=== PATIENT | male | born 1930 | race Caucasian/White ===

== ENCOUNTER 2016-05-01 14:56 | Inpatient (IN) | payer OTHER ==
[~2016-05-01] VITALS: Ht 160 cm; Wt 82.9 kg
[2016-05-01] MEDS ORDERED: OMEG10007 PO (16:06)
[2016-05-01] MEDS ORDERED: CRAN1CAP15 PO (16:07)
[2016-05-01] MEDS ORDERED: FLM4 PO (16:09)
[2016-05-01] MEDS ORDERED: ASPCH81X PO (16:09)
[2016-05-01] MEDS ORDERED: MONT1TAB5 PO (16:09)
[2016-05-01] MEDS ORDERED: ATEN-173 PO (16:09)
[2016-05-01] MEDS ORDERED: MELO7.5T5 PO (16:09)
[2016-05-01] MEDS ORDERED: ACETAMINOPHEN 325 MG TAB PO PRN (16:15)
[2016-05-01] MEDS ORDERED: POLYETHYLENE (MIRALAX) 17 GM PACK PO PRN (16:15)
[2016-05-01] MEDS ORDERED: MAGNESIUM HYDROXIDE SUSP 30 ML UDC PO PRN (16:15)
[2016-05-01] MEDS ORDERED: ALUMINUM/MAGNESIUM/SIMETH (MAALOX MAX) 30 ML UDC PO PRN (16:15)
[2016-05-01] MEDS ORDERED: ONDANSETRON INJ 2 MG/ML 2 ML VIAL IV PRN (16:15)
[2016-05-01] MEDS ORDERED: PIPERACILLIN/TAZOBACTAM 3.375 GM/100ML D5W IV STA (16:18)
[2016-05-01 16:25] VITALS: BP 95/65; PULSE 67; TEMP 36.9; O2SAT 93; Ht 160 cm; Wt 82.9 kg
[2016-05-01] MEDS ORDERED: PIPERACILL/TAZOBAC IV 3.375 GM in DEXTROSE 5% 100ML IV ONE (16:30)
[2016-05-01] MEDS ORDERED: PIPERACILL/TAZOBAC CONSULT ACTIVE PRN (16:30)
--- NOTE | 2016-05-01 16:55 | History and Physical ---
History & Physical Date of Service May 01, 2016. History & Physical leukocytosis, left lower abd pain, Ct showed cholecystitis/pancreatitis [id number]
[2016-05-01] MEDS ORDERED: PANTOprazole INJ 40 MG in SYRINGE 0 ML IV ONE (17:00)
[2016-05-01 17:05] LABS: HEMATOCRIT 34.7 % (42-52); MEAN CELL VOLUME 91.3 fL (80-100); MEAN CORPUSCULAR HEMOGLOBIN 31.8 pg (25-34); MEAN CORPUSCULAR HGB CONC 34.9 g/dl (32-36); MEAN PLATELET VOLUME 9.6 fL (7.4-10.4); PLATELET COUNT 200 K/uL (130-400); WHITE BLOOD COUNT 21.39 K/uL (4.8-10.8)
[2016-05-01 17:15] LABS: PROTHROMBIN TIME (PATIENT) 10.7 SECONDS (9.0-12.0)
[2016-05-01 17:25] LABS: BUN/CREATININE RATIO 19.6 (10-20); CALCIUM 8.6 mg/dl (8.5-10.1); CREATININE 1.4 mg/dl (0.60-1.40); MAGNESIUM 2.4 mg/dl (1.8-2.4); POTASSIUM 3.8 mmol/L (3.5-5.1)
--- NOTE | 2016-05-01 17:28 | Medical Consult ---
Consultation Date of Consultation: May 01, 2016. Attending Physician: Anthony Freeman MD, PhD Reason for Consultation: cholecystitis, pancreatitis History of Present Illness 86 yo male with abd pain- w/u , findings c/w acute cholecystitis and mild pancreatitis. likely gallstone pancreatitis transferred from [facility] wbc- 22,000 Social History Smoking Status: Never Smoker Allergies Coded Allergies: Allopurinol (Verified Allergy, Mild, PT DOESN'T KNOW, 05/01/16) unknown Fexofenadine (Verified Allergy, Mild, RASH, 05/01/16) unknown Sulfa Antibiotics (Verified Allergy, Unknown, RASH, 05/01/16) unknown Current Inpatient Medications Current Inpatient Medications Medications (Trade) Dose Ordered Sig/Adithya Route Start Time Stop Time Status Last Admin Dose Admin Acetaminophen (Tylenol Tab) 650 mg Q4H PRN PO 05/01/16 16:15 05/31/16 16:14 Al Hydrox/Mg Hydrox/Simethicone (Maalox Max Susp) 15 ml Q4H PRN PO 05/01/16 16:15 05/31/16 16:14 Magnesium Hydroxide (Milk Of Magnesia Susp) 30 ml Q6H PRN PO 05/01/16 16:15 05/31/16 16:14 Polyethylene (Miralax Powder Packet) 17 gm DAILY PRN PO 05/01/16 16:15 05/31/16 16:14 Ondansetron HCl 4 mg 4 mg Q6H PRN IV 05/01/16 16:15 05/31/16 16:14 Piperacillin Sod/ Tazobactam Sod/ Dextrose (Zosyn Iv/D5 100ml) 115 ml @ 200 mls/hr Q6 IV 05/01/16 18:00 05/11/16 17:59 UNV Piperacillin Sod/ Tazobactam Sod 1 ea 1 ea UD PRN N/A 05/01/16 16:30 05/31/16 16:29 Sodium Chloride (Nss 1000ml) 1,000 ml @ 150 mls/hr Q6H40M IV 05/01/16 16:45 05/31/16 16:44 Atenolol (Tenormin Tab) 25 mg DAILY PO 05/02/16 09:00 06/01/16 08:59 Montelukast Sodium (Singulair Tab) 10 mg DAILY PO 05/02/16 09:00 06/01/16 08:59 Tamsulosin HCl (Flomax Cap) 0.4 mg QPM PO 05/01/16 21:00 05/31/16 20:59 Heparin Sodium (Porcine) 5000 unit 5,000 unit Q12 SQ 05/01/16 21:00 05/31/16 20:59 UNV Pantoprazole Sodium/Syringe (Protonix Inj/ Syringe) 10 ml @ 5 mls/min DAILY@11 IV 05/02/16 11:00 06/01/16 10:59 Review of Systems Constitutional: No chills, No fever Respiratory: No cough, No sputum Cardiovascular: No chest pain Abdomen: + nausea, + pain, No vomiting Musculoskeletal: No muscle pain Genitourinary - Male: No dysuria Neurologic: + weakness Endocrine: + fatigue Integumentary: No rash Physical Exam Date Time Temp Pulse Resp B/P Pulse Ox O2 Delivery O2 Flow Rate FiO2 05/01/16 16:25 36.9 67 16 95/65 General Appearance: no apparent distress Eyes: sclerae normal Neck: supple Respiratory/Chest: no respiratory distress Cardiovascular: regular rate, rhythm Abdomen/GI: normal bowel sounds (RUQ tenderness), + tenderness, + distended Extremities/Musculoskelatal: no pedal edema Neurologic/Psych: alert Skin: no rash Laboratory Results Last 24 Hours Test 05/01/16 16:36 05/01/16 16:38 05/01/16 16:50 White Blood Count 21.39 K/uL Red Blood Count 3.80 M/uL Hemoglobin 12.1 g/dL Hematocrit 34.7 % Mean Corpuscular Volume 91.3 fL Mean Corpuscular Hemoglobin 31.8 pg Mean Corpuscular Hemoglobin Concent 34.9 g/dl Platelet Count 200 K/uL Mean Platelet Volume 9.6 fL RDW Standard Deviation 46.1 fL RDW Coefficient of Variation 13.9 % Prothrombin Time 10.7 SECONDS Prothromb Time International Ratio 1.0 Assessment & Plan 05/01/16- adm with what appears to be acute cholecystitis and mild pancreatitis. concern for progressive gb necrosis- plan lap casper w/n 24 hrs limited po and IV atbx
[2016-05-01 17:36] LABS: BASO ABS # 0.01 K/uL (0-0.2); COMPLETE YES; EOS % 0.2 %; IG% 0.4 %; LYMPH % 8.8 %; LYMPH ABS # 1.89 K/uL (1.2-3.4); MONO % 6.9 %; NEUT % 83.7 %
[2016-05-01] MEDS ORDERED: NURSING VERBAL MED ORDER ONE ×2 (17:45→18:30)
[2016-05-01] MEDS: SODIUM CHLORIDE 0.9% 1000ML 1,000 ML IV SCH ×2 (17:56→23:24)
--- NOTE | 2016-05-01 17:59 | HISTORY & PHYSICAL EXAMINATION ---
DATE OF ADMISSION: 05/01/2016 This is a level 3 inpatient admission, 35 minutes. CHIEF COMPLAINT: Left lower abdominal pain and CT scan shows acute cholecystitis and pancreatitis and has leukocytosis. HISTORY OF PRESENT ILLNESS: The patient is an 86-year-old white male with a history of high blood pressure, BPH, was transferred from [facility] because of the above chief complaint. Per report of the [facility] ED physician and patient, he described the pain was localized in the left lower abdomen, started 2-3 days ago, still has pain. He described mild pain, no nausea, vomiting, no diarrhea. Last bowel movement was yesterday. In [facility] he was no fever, but was found to have leukocytosis, WBC up to 22, neutrophil 89%. Abdominal CT studies shows acute cholecystitis and pancreatitis. There was no diverticulosis. The patient does not report any diarrhea or blood in the stool. ED physician talked to me and I agreed to accept the patient. When I interviewed with him, the patient to reported to me the above information, still has a left lower quadrant abdominal pain, especially when in deep pressing there was one spot which caused his pain. Otherwise, has been no eating since last night. May have fevers at home last night. Denied nausea, vomiting. Denied abdominal pain now, denied diarrhea or constipation, denied cough, sputum, shortness of breath. Denied chest pain, palpitation, lower extremity swelling. Denied dysuria, urgency, or frequencies. Denied facial droop, slurry speeches or local weakness. PAST MEDICAL HISTORY: Include contusion, hypertension, dyslipidemia, BPH, left lower extremity deep venous thrombosis, was on Xarelto for several months. Currently not on Xarelto. MEDICATIONS: Taking at home include fish oil 3 cap p.o. daily, cranberry 84 mg p.o. daily, montelukast 1 tab p.o. daily, atenolol 25 mg p.o. daily, Flomax 0.4 mg p.o. q.p.m., Meloxicam 7.5 mg p.o. daily, aspirin 81 mg p.o. daily. ALLERGIES: ALLERGIC TO ALLOPURINOL AND SULFA. SOCIAL HISTORY: Include remote history of smoking. Denied alcohol abuse disorder, denied illicit drug abuse. FAMILY HISTORY: Noncontributory. REVIEW OF SYSTEMS: Please see HPI, otherwise 14 points organized system review were negative. PHYSICAL EXAMINATION: GENERAL: The patient is a white male, mild decreased hearing, awake, alert and oriented in no acute distress, pleasant, conversational. HEAD: Normocephalic. EYES: Pupils equal, round responds to light. EARS: Ear was normal. NOSE: Normal. NECK: Supple. Thyroid no enlargement. Trachea midline. HEART: Regular rhythm. S1, S2. LUNGS: Decreased breathing sounds. There was no wheezing, rhonchi and crackles. ABDOMEN: Soft, and mild obesity, left lower quadrant deep tender only one spot right upper quadrant. No pain. No organomegaly. Bowel sound was positive. GENITOURINARY AND RECTAL: Deferred. Bilateral CVA was nontender. LOWER EXTREMITIES: No swelling. Homans sign was negative. Calf was nontender. NEUROLOGIC: Cranial nerve through XII was intact. There was no local deficits. LABORATORY STUDIES: In [facility]: WBC 22.9, hemoglobin 13, platelet 224. Neutrophil 86%. Sodium 135, potassium 3.5, chloride 101, bicarbonate 28. BUN 26, creatinine 1.3. Liver function tests were within normal limits. Calcium 9.3. Total protein 6.9, albumin 2.5, alkaline phosphatase 237, amylase 60, lipase 258. IMAGING STUDIES: Abdominal CT studies shows acute pancreatitis suggested without complications, also shows cholelithiasis with wall thickening suggestion of surrounding stranding. has acute cholecystitis. Abdominal CT also shows distal colonic diverticula without acute diverticulitis or colitis. No appendicitis or bowel obstruction. There was a prominent prostate as well. ASSESSMENT AND PLAN: An 86-year-old white male transferred from [facility] because of 1. left lower abdominal pain, etiology unknown associated with leukocytosis, blood pressure was low in the admission at 95/65. Abdominal CT shows pancreatitis but lipase was normal in [facility] and amylase was normal too. Possible acute cholecystitis. Therefore, for the etiology of left lower abdominal pain was unclear and patient was having incidental acute cholecystitis. There was no any signs of tender in the right upper quadrant. I will repeat labs in this hospital include lipase and liver function tests. We will send images to the radiology to loading at the same time, I talked to Dr. Miller already. Dr. Miller will see the patient as request for consultation. The patient did get some IV antibiotic in [facility]. Blood culture was sent. We will need to follow up the blood culture results from [facility]. I will not send a blood culture in this hospital because no sense presenting again. We will start Zosyn for possible acute cholecystitis. Will start IV fluid at 150 mL hour. Keep n.p.o. for now, but okay some medicines from home. Include Flomax. I will not order any metronidazole because I feel dosing covered for any anaerobic infections. I am going will check PSA. ordered heparin for DVT prophylaxis. Keep n.p.o. midnight. Discussed with patient about the care plan. I answered all the questions. full code, but he did state that his living will include do not do any invasive treatment or treatment if there is no meaning for to prolong his life. ANA
[2016-05-01 18:01] VITALS: BP 109/53; PULSE 68
[2016-05-01 18:21] LABS: PROSTATE SPECIFIC ANTIGEN 8.43 ng/ml (0.000-4.000)
[2016-05-01] MEDS ORDERED: MoRPHine SULFATE 4 MG/ML 1 ML CARP\\VIAL IV PRN (18:30)
[2016-05-01 19:19] VITALS: BP 112/66; PULSE 75
[2016-05-01] MEDS: TAMSULOSIN HCL 0.4 MG CAP PO SCH (19:21)
[2016-05-01] MEDS ORDERED: HEPARIN SOD 5000 UNIT/0.5 ML CARP SQ SCH (21:00)
--- NOTE | 2016-05-01 22:56 | DIAGNOSTIC IMAGING REPORT ---
ULTRASOUND ABDOMEN COMPLETE CLINICAL HISTORY: Pancreatitis an cholecystitis shown by CT. Generalized abdominal pain. COMPARISON STUDY: Abdominal [facility] from [facility] dated 05/01/2016. TECHNIQUE: Real-time, grayscale, and color flow sonography of the abdomen was performed. Images are reviewed in the transverse and longitudinal planes. FINDINGS: Liver: The liver is normal in size and demonstrates heterogeneously increased echotexture suggesting hepatic steatosis. There is no intrahepatic biliary ductal dilatation. The main portal vein is patent. Gallbladder: The gallbladder is distended and filled with shadowing stones and sludge. The gallbladder is wall is thickened measuring up to 5 mm. A sonographic Suresh's sign is equivocal as the patient received analgesia. There is trace pericholecystic fluid. Echogenic foci within the gallbladder likely represent foci of gas. The common bile duct is dilated measuring up to 1.1 cm in diameter. Pancreas: The pancreas is not well visualized by overlying bowel gas. Spleen: The spleen is normal in size and echotexture, measuring 11.3 cm in length. Kidneys: The kidneys demonstrate cortical atrophy. There is no hydronephrosis. The right kidney measures 10.7 cm in length and the left kidney measures 10.7 cm in length. A 1.2 cm cyst is noted in the left kidney. No shadowing calculi are identified. Abdominal vasculature: Visualized portions of the abdominal aorta are normal in caliber noting atherosclerotic calcification and irregularity. The IVC is normal as visualized. Ascites: None. IMPRESSION: 1. Cholelithiasis and biliary sludge with evidence of acute cholecystitis, possibly emphysematous. Surgical consultation is advised. 2. The pancreas was not visualized. The CT findings are consistent with acute pancreatitis. 3. Findings suggest hepatic steatosis. Electronically signed by: Augustin Rangel M.D. 05/01/2016 10:54 PM Dictated Date/Time: 05/01/2016 10:50 PM
[2016-05-01] MEDS: PIPERACILL/TAZOBAC IV 3.375 GM in DEXTROSE 5% 100ML 100 ML IV SCH (23:22)
[2016-05-01 23:48] VITALS: BP 128/73; PULSE 83; TEMP 37.4; O2SAT 90
[2016-05-02] VITALS (7 sets, daily range): BP systolic 113–128; BP diastolic 61–72; PULSE 78–100; TEMP 36.7–37; O2SAT 91–98
[2016-05-02 03:24] LABS: URINE APPEARANCE CLEAR (CLEAR); URINE BILIRUBIN NEG (NEG); URINE COLOR DK YELLOW; URINE NITRITE NEG (NEG); URINE PH 5.5 (4.5-7.5); URINE SPECIFIC GRAVITY > 1.045 (1.000-1.030); UROBILINOGEN NEG (NEG)
[2016-05-02 03:35] LABS: MANUAL MICROSCOPIC REQUIRED? YES; REVIEW REQ? NO
[2016-05-02 03:39] LABS: URINE BACTERIA NEG (NEG); URINE RBC 0-4 /hpf (0-4)
[2016-05-02] MEDS: SODIUM CHLORIDE 0.9% 1000ML 1,000 ML IV SCH (05:29)
[2016-05-02 05:49] LABS: BASO % 0.1 %; BASO ABS # 0.02 K/uL (0-0.2); COMPLETE YES; EOS % 0.1 %; HEMATOCRIT 33.4 % (42-52); IG% 0.6 %; LYMPH % 7.4 %; LYMPH ABS # 1.45 K/uL (1.2-3.4); MEAN CELL VOLUME 90.3 fL (80-100); MEAN CORPUSCULAR HEMOGLOBIN 31.6 pg (25-34); MEAN PLATELET VOLUME 9.4 fL (7.4-10.4); MONO % 6.9 %; NEUT % 84.9 %; PLATELET COUNT 193 K/uL (130-400); WHITE BLOOD COUNT 19.56 K/uL (4.8-10.8)
[2016-05-02 06:23] LABS: BUN/CREATININE RATIO 18.2 (10-20); CREATININE 1.3 mg/dl (0.60-1.40); MAGNESIUM 2.2 mg/dl (1.8-2.4); POTASSIUM 3.5 mmol/L (3.5-5.1)
--- NOTE | 2016-05-02 06:57 | Surgery Progress Note ---
Surgery Progress Note Date of Service May 02, 2016. Subjective afeb, vss Objective Vital Signs: Date Time Temp Pulse Resp B/P Pulse Ox O2 Delivery O2 Flow Rate FiO2 05/02/16 03:28 94 Nasal Cannula 1.0 05/01/16 23:48 37.4 83 18 128/73 90 Room Air 05/01/16 19:52 Room Air 05/01/16 19:19 75 112/66 05/01/16 18:01 68 109/53 05/01/16 16:25 36.9 67 16 95/65 93 Room Air Laboratory Results: Results Past 24 Hours Test 05/01/16 16:36 05/02/16 00:00 05/02/16 05:32 Range/Units White Blood Count 21.39 19.56 4.8-10.8 K/uL Red Blood Count 3.80 3.70 4.7-6.1 M/uL Hemoglobin 12.1 11.7 14.0-18.0 g/dL Hematocrit 34.7 33.4 42-52 % Mean Corpuscular Volume 91.3 90.3 80-100 fL Mean Corpuscular Hemoglobin 31.8 31.6 25-34 pg Mean Corpuscular Hemoglobin Concent 34.9 35.0 32-36 g/dl Platelet Count 200 193 130-400 K/uL Mean Platelet Volume 9.6 9.4 7.4-10.4 fL Neutrophils (%) (Auto) 83.7 84.9 % Lymphocytes (%) (Auto) 8.8 7.4 % Monocytes (%) (Auto) 6.9 6.9 % Eosinophils (%) (Auto) 0.2 0.1 % Basophils (%) (Auto) 0.0 0.1 % Neutrophils # (Auto) 17.90 16.62 1.4-6.5 K/uL Lymphocytes # (Auto) 1.89 1.45 1.2-3.4 K/uL Monocytes # (Auto) 1.47 1.35 0.11-0.59 K/uL Eosinophils # (Auto) 0.04 0.01 0-0.5 K/uL Basophils # (Auto) 0.01 0.02 0-0.2 K/uL RDW Standard Deviation 46.1 46.1 36.4-46.3 fL RDW Coefficient of Variation 13.9 13.9 11.5-14.5 % Immature Granulocyte % (Auto) 0.4 0.6 % Immature Granulocyte # (Auto) 0.08 0.11 0.00-0.02 K/uL Prothrombin Time 10.7 9.0-12.0 SECONDS Prothromb Time International Ratio 1.0 0.9-1.1 Sodium Level 138 140 136-145 mmol/L Potassium Level 3.8 3.5 3.5-5.1 mmol/L Chloride Level 103 107 98-107 mmol/L Carbon Dioxide Level 25 22 21-32 mmol/L Anion Gap 10.0 11.0 3-11 mmol/L Blood Urea Nitrogen 27 24 7-18 mg/dl Creatinine 1.40 1.30 0.60-1.40 mg/dl Est Creatinine Clear Calc Drug Dose 38.2 41.1 ml/min Estimated GFR () 53.1 58.1 Estimated GFR (Non- 45.8 50.1 BUN/Creatinine Ratio 19.6 18.2 10-20 Random Glucose 135 147 70-99 mg/dl Calcium Level 8.6 8.0 8.5-10.1 mg/dl Magnesium Level 2.4 2.2 1.8-2.4 mg/dl Lipase 271 234 73-393 U/L Prostate Specific Antigen 8.430 0.000-4.000 ng/ml Urine Color DK YELLOW Urine Appearance CLEAR CLEAR Urine pH 5.5 4.5-7.5 Urine Specific [place] > 1.045 1.000-1.030 Urine Protein 1+ NEG Urine Glucose (UA) NEG NEG Urine Ketones NEG NEG Urine Occult Blood NEG NEG Urine Nitrite NEG NEG Urine Bilirubin NEG NEG Urine Urobilinogen NEG NEG Urine Leukocyte Esterase NEG NEG Urine WBC (Auto) 0-5 /hpf Urine RBC (Auto) 0-4 /hpf Urine Hyaline Casts (Auto) 0-5 /lpf Urine Epithelial Cells (Auto) 0-5 /lpf Urine Bacteria (Auto) NEG Urine RBC 0-4 0-4 /hpf Urine WBC 1-5 0-5 /hpf Urine Epithelial Cells 0-5 0-5 /lpf Urine Renal Epithelial Cells 0-5 /lpf Urine Bacteria NEG NEG Urine Yeast (Auto) NONE PRSENT Total Bilirubin 1.0 0.2-1 mg/dl Direct Bilirubin 0.4 0-0.2 mg/dl Aspartate Amino Transf (AST/SGOT) 33 15-37 U/L Alanine Aminotransferase (ALT/SGPT) 94 12-78 U/L Alkaline Phosphatase 180 45-117 U/L C-Reactive Protein 17.00 0-0.29 mg/dl Total Protein 5.7 6.4-8.2 gm/dl Albumin 1.9 3.4-5.0 gm/dl Assessment & Plan 05/02/16- for OR this am- laparoscopic casper, possible cholangiogram
[2016-05-02] MEDS ORDERED: FENTANYL CITRATE INJ 50 MCG/1 ML 2 ML VIAL ONE ×2 (08:53→10:08)
[2016-05-02] MEDS ORDERED: BUPIVACAINE 0.5 % 5 MG/1 ML MPF 30ML VIAL ONE (09:10)
[2016-05-02] MEDS ORDERED: HYDROmorphone INJ 2 MG/ML SYR/VIAL IV PRN (09:30)
[2016-05-02] MEDS ORDERED: ATROPINE SULFATE 0.1 MG/ML 5ML SYR IV PRN (09:30)
[2016-05-02] MEDS ORDERED: ONDANSETRON INJ 2 MG/ML 2 ML VIAL IV PRN ×2 (09:30→11:30)
[2016-05-02] MEDS: PIPERACILL/TAZOBAC IV 3.375 GM in DEXTROSE 5% 100ML 100 ML IV SCH ×2 (09:33→17:59)
[2016-05-02] MEDS ORDERED: GLYCOPYRROLATE INJ 0.2 MG/ML VIAL ONE (09:54)
[2016-05-02] MEDS ORDERED: ROCURONIUM BROMIDE 10 MG/ML 5 ML VIAL ONE (09:54)
[2016-05-02] MEDS ORDERED: NEOSTIGMINE METHYLSULFATE 5 MG/5 ML SYR ONE (09:54)
[2016-05-02] MEDS ORDERED: LIDOCAINE HCL 2% 2 ML VIAL (20MG/ML) ONE (09:54)
[2016-05-02] MEDS ORDERED: PROPOFOL IV EMULSION 10 MG/ML 20 ML VIAL IV ONE (09:54)
[2016-05-02] MEDS ORDERED: ONDANSETRON INJ 2 MG/ML 2 ML VIAL ONE (09:54)
[2016-05-02] MEDS ORDERED: ALBUTEROL HFA INHALER 8.5 GM INH ONE (09:56)
[2016-05-02] MEDS ORDERED: EpHEDrine SULFATE 50MG/5ML SYR ONE (10:04)
[2016-05-02] MEDS ORDERED: PHENYLEPHRINE 100MCG/ML 5ML SYR ONE (10:04)
[2016-05-02] MEDS ORDERED: ALBUTEROL 0.083% NEBU SOLN 3 ML VIAL INH PRN (10:30)
--- NOTE | 2016-05-02 11:21 | [facility] Post Operative Brief Note ---
Immediate Operative Summary Operative Date May 02, 2016. Pre-Operative Diagnosis Acute Cholecystitis Post-Operative Diagnosis Acute Cholecystitis with necrosis and gangrene- bilious ascites Procedure(s) Performed Laparoscopic Cholecystectomy/ partial cholecystectomy, drainage bilious ascites Surgeon Dr. Miller Wire Chief Surgeon(s) nurses Estimated Blood Loss 20 mL Findings necrotic gb, severe inflammation at afia hepatis Specimens A: Gallbladder Drains #19 Rd JAMAAL to subhep space, # 15 Rd to pelvis Anesthesia gen Complication(s) None Disposition Surgical ICU
[2016-05-02] MEDS ORDERED: HYDROCODONE/ACETAMOPHEN 5/325MG TAB PO PRN ×2 (11:30)
[2016-05-02] MEDS ORDERED: PROMETHAZINE HCL INJ 25 MG in SODIUM CHLORIDE 0.9% 50ML 50 ML IV PRN (11:30)
[2016-05-02] MEDS ORDERED: HYDROmorphone INJ 0.5 MG/0.5 ML SYR IV PRN (11:30)
[2016-05-02] MEDS ORDERED: PROMETHAZINE HCL INJ 12.5 MG in SODIUM CHLORIDE 0.9% 50ML 50 ML IV PRN (11:45)
[2016-05-02] MEDS: HYDROmorphone INJ 1 MG/ML SYR IV PRN ×2 (12:02→16:47)
[2016-05-02] MEDS: PANTOprazole INJ 40 MG in SYRINGE 0 ML IV SCH (12:03)
[2016-05-02] MEDS: MONTELUKAST SOD 10 MG TAB PO SCH (12:03)
[2016-05-02] MEDS: LACTATED RINGER'S 1000ML 1,000 ML IV SCH (12:04)
--- NOTE | 2016-05-02 12:23 | Anesthesiology Progress Note ---
Anesthesia Post Op Note Date & Time May 02, 2016 at 12:23 Vital Signs Vital Signs Past 12 Hours Date Time Temp Pulse Resp B/P Pulse Ox O2 Delivery O2 Flow Rate FiO2 05/02/16 11:27 37.9 05/02/16 11:20 80 20 127/48 96 Mask 10 05/02/16 11:11 37.9 86 20 105/52 97 Mask 10 05/02/16 07:42 37.0 78 15 113/66 95 Nasal Cannula 1.0 05/02/16 03:28 94 Nasal Cannula 1.0 Notes Mental Status: alert / awake / arousable, participated in evaluation Pt Amnestic to Procedure: Yes Nausea / Vomiting: adequately controlled Pain: adequately controlled Airway Patency, RR, SpO2: stable & adequate BP & HR: stable & adequate Hydration State: stable & adequate Anesthetic Complications: no major complications apparent
--- NOTE | 2016-05-02 13:28 | OPERATIVE REPORT ---
DATE OF OPERATION: 05/02/2016 PREOPERATIVE DIAGNOSIS: Acute cholecystitis. POSTOPERATIVE DIAGNOSIS: Acute necrotizing cholecystitis with bilious ascites. NAME OF OPERATION: Laparoscopic cholecystectomy with drainage of bilious ascites. STAFF SURGEON: Dr. Miller. ANESTHESIA: General. OPERATION AND FINDINGS: FINDINGS: The patient had severely acute and chronic cholecystitis with severe adhesions of the omentum and colon to the gallbladder as well as necrosis, mucosal necrosis, bilious ascites, severe inflammation at the afia hepatis. PROCEDURE: The patient was brought in the operating room and placed on the operating table in supine position. His abdomen was prepped and draped in usual fashion. Pneumatic stockings and orogastric tube were placed. Plain Marcaine 0.5% was used to anesthetize all incisions. Incision was made above the umbilicus, carrying dissection down, placing a Veress needle producing pneumoperitoneum. An 11 mm port was placed at this level. The patient was placed in reverse Trendelenburg position, rotated to the left. Three 5 mm ports were placed under visualization, 1 cephalad and 2 laterally. At this point, it was evident that there was bilious ascites within the abdomen which was cloudy. I attempted to bring the omentum down, it was severely adherent to the gallbladder. I was able to read reflect the gallbladder somewhat and retract it. I attempted to aspirate bile from the gallbladder and recovered purulent fluid. At this point I attempted to aspirate purulent fluid. The gallbladder was necrotic and essentially ruptured recovering a significant amount of purulent fluid and then with suctioning the entire mucosa of the gallbladder sloughed and was brought outside the gallbladder and placed into an Endobag. This was then removed through the umbilical site using a 5 mm scope. Going back to the gallbladder, I was able to gradually bluntly take the adhesions down from the gallbladder; however, at the afia hepatis there was severe inflammation from pancreatitis and chronic inflammation. I felt that it would be very difficult to dissect the cystic duct free but as I went along the gallbladder essentially disintegrated and ruptured from necrosis. I felt at this point it would be best to excise as much of the gallbladder except for the posterior wall as possible, which was done without significant bleeding. I was unable to identify the cystic duct or the cystic artery. There was no bilious drainage and no significant bleeding. The gallbladder and stones were all placed into the Endobag and then the Endobag removed through the umbilical site. At this point, a 19 round Onofre-Francisco drain was placed through the lateral 5 mm port into the subhepatic space. This was after irrigation and hemostasis, and then a 15 round Onofre-Francisco drain placed through the mid 5 mm port and down into the pelvis. I was able to irrigate the pelvis, but there was some bilious ascites. Both drains were secured using 3-0 nylon suture to the abdominal wall and placed to suction bulbs. All ports were removed. The fascia at the umbilicus closed using interrupted 0 PDS suture then the skin reapproximated using 4-0 nylon suture. The patient was transferred to the intensive care unit for observation and care in stable condition. He did well throughout the operation. I attest to the content of the Intraoperative Record and any orders documented therein. Any exceptio ns are noted below.
--- NOTE | 2016-05-02 14:55 | Critical Care Consultation ---
Critical Care Consultation Date of Consultation: May 02, 2016. Attending Physician: Carlos Thompson MD Reason for Consultation: Complicated cystitis, postoperative management History of Present Illness Patient is a 86-year-old male with a significant past medical history for hyperlipidemia, approximately [id number] smoking history last tobacco use in 1988 and allergies to sulfa antibiotics, who underwent a laparoscopic cholecystectomy for acute cholecystitis. Operative findings included complicated acute and chronic cholecystitis with gallbladder necrosis, mucosal necrosis, ileus ascites, and severe inflammation at the afia hepatis. Postoperatively he was transferred to the ICU for further medical management under the concerns for possible intra-abdominal sepsis secondary to come to acute cholecystitis and the concern for possibly developing acute pancreatitis, as well as possible development of a postoperative ileus. Currently the patient has a complaint of a sore throat and cough after general anesthesia, his pain is well controlled, has 5 out of 10 pain at the right laparoscopic port sites and has some serous sanguinous drainage. Past Medical/Surgical History As noted above Social History Smoking Status: Former Smoker Allergies Coded Allergies: Allopurinol (Verified Allergy, Mild, PT DOESN'T KNOW, 05/01/16) unknown Fexofenadine (Verified Allergy, Mild, RASH, 05/01/16) unknown Sulfa Antibiotics (Verified Allergy, Unknown, RASH, 05/01/16) unknown Home Medications Scheduled Aspirin (Aspirin Chewable), 81 MG PO DAILY Atenolol (Tenormin), 25 MG PO DAILY Cranberry-Vitamin C-Vitamin E (Cranberry), 84 MG PO DAILY Fish Oil ([place]-3), 1 CAP PO BID Meloxicam (Mobic), 7.5 MG PO DAILY Montelukast Sodium (Montelukast Sodium), 1 TAB PO DAILY Tamsulosin HCl (Tamsulosin HCl), 0.4 MG PO QPM Current Inpatient Medications Current Inpatient Medications Medications (Trade) Dose Ordered Sig/Adithya Route Start Time Stop Time Status Last Admin Dose Admin Acetaminophen (Tylenol Tab) 650 mg Q4H PRN PO 05/01/16 16:15 05/31/16 16:14 Al Hydrox/Mg Hydrox/Simethicone (Maalox Max Susp) 15 ml Q4H PRN PO 05/01/16 16:15 05/31/16 16:14 Magnesium Hydroxide (Milk Of Magnesia Susp) 30 ml Q6H PRN PO 05/01/16 16:15 05/31/16 16:14 Polyethylene (Miralax Powder Packet) 17 gm DAILY PRN PO 05/01/16 16:15 05/31/16 16:14 Ondansetron HCl 4 mg 4 mg Q6H PRN IV 05/01/16 16:15 05/31/16 16:14 Piperacillin Sod/ Tazobactam Sod/ Dextrose (Zosyn Iv/D5 100ml) 115 ml @ 28.75 mls/ hr Q8@0000,0800,1600 IV 05/02/16 00:00 05/14/16 23:59 05/02/16 09:33 28.75 MLS/HR Piperacillin Sod/ Tazobactam Sod (Consult) 1 ea UD PRN N/A 05/01/16 16:30 05/31/16 16:29 Atenolol (Tenormin Tab) 25 mg DAILY PO 05/02/16 09:00 06/01/16 08:59 Montelukast Sodium (Singulair Tab) 10 mg DAILY PO 05/02/16 09:00 06/01/16 08:59 05/02/16 12:03 10 MG Tamsulosin HCl 0.4 mg 0.4 mg QPM PO 05/01/16 21:00 05/31/16 20:59 05/01/16 19:21 0.4 MG Pantoprazole Sodium/Syringe (Protonix Inj/ Syringe) 10 ml @ 5 mls/min DAILY@11 IV 05/02/16 11:00 06/01/16 10:59 05/02/16 12:03 5 MLS/MIN Morphine Sulfate (MoRPHine SULFATE INJ) 4 mg Q6H PRN IV 05/01/16 18:30 05/15/16 18:29 Ondansetron HCl (Zofran Inj) 4 mg ONE PRN IV 05/02/16 09:30 05/02/16 16:00 Atropine Sulfate (Atropine Sulfate 0.1MG/Ml Inj) 0.5 mg Q1M PRN IV 05/02/16 09:30 05/02/16 16:00 Hydromorphone HCl (Dilaudid Inj) 0.25 mg Q5M PRN IV 05/02/16 09:30 05/02/16 16:00 Heparin Sodium (Porcine) (Heparin Sq 5000 Unit/0.5ml) 5,000 unit Q12H SQ 05/02/16 22:00 06/01/16 21:59 Hydromorphone HCl (Dilaudid Inj) 0.5 mg Q3H PRN IV 05/02/16 11:30 05/16/16 11:29 Hydromorphone HCl 1 mg 1 mg Q3H PRN IV 05/02/16 11:30 05/16/16 11:29 05/02/16 12:02 1 MG Lactated Ringer's (Lr 1000ml) 1,000 ml @ 125 mls/hr Q8H IV 05/02/16 11:30 06/01/16 11:29 05/02/16 12:04 125 MLS/HR Acetaminophen/ Hydrocodone Bitart ([place] 5/325 Tab) 1 tab Q4 PRN PO 05/02/16 11:30 05/16/16 11:29 Acetaminophen/ Hydrocodone Bitart 2 tab 2 tab Q4 PRN PO 05/02/16 11:30 05/16/16 11:29 Promethazine HCl/ Sodium Chloride (Phenergan Inj/ Nss 50ml) 51 ml @ 204 mls/hr Q6H PRN IV 05/02/16 11:30 06/01/16 11:29 Senna/Docusate Sodium 1 tab 1 tab BID PO 05/02/16 21:00 06/01/16 20:59 Promethazine HCl/ Sodium Chloride (Phenergan Inj/ Nss 50ml) 50.5 ml @ 202 mls/hr Q6H PRN IV 05/02/16 11:45 06/01/16 11:44 Cetirizine HCl 5 mg 5 mg HS PO 05/02/16 21:00 06/01/16 20:59 Fluconazole/ Sodium Chloride/ Prmx (Diflucan IV/ Premixed Nss) 100 ml @ 100 mls/hr DAILY@1500,1600 IV 05/02/16 15:00 05/05/16 16:59 Review of Systems See above for pertinent positives & negatives. A total of 10 systems reviewed and were otherwise negative. Constitutional: No chills, No fever, No sweats Respiratory: + cough, No dyspnea at rest, No dyspnea on exertion, No shortness of breath, No sputum, No wheezing Cardiovascular: No chest pain, No orthopnea Abdomen: + pain (5 out of 10), No nausea Physical Exam Date Time Temp Pulse Resp B/P Pulse Ox O2 Delivery O2 Flow Rate FiO2 05/02/16 11:27 37.9 05/02/16 11:20 80 20 127/48 96 Mask 10 05/02/16 11:11 37.9 86 20 105/52 97 Mask 10 05/02/16 07:42 37.0 78 15 113/66 95 Nasal Cannula 1.0 05/02/16 03:28 94 Nasal Cannula 1.0 05/01/16 23:48 37.4 83 18 128/73 90 Room Air 05/01/16 19:52 Room Air 05/01/16 19:19 75 112/66 05/01/16 18:01 68 109/53 05/01/16 16:25 36.9 67 16 95/65 93 Room Air General Appearance: WD/WN, no apparent distress Head: normocephalic, atraumatic Eyes: PERRLA, sclerae normal Neck: normal range of motion, no tenderness, trachea midline Respiratory: breath sounds normal, clear to auscultation Cardiovasular: regular rate/rhythm, normal S1S2, no M/G/R Abdomen: no rebound, no masses, no guarding, no organomegaly, hypoactive bowel sounds, other (bandages present, shadowing on right port sites) Genitourinary - Male: external genitalia normal Back: normal inspection, no midline tenderness, no CVA tenderness Upper Extremities: no edema Lower Extremities: no edema Neuro: alert, oriented x 3, normal motor exam Psychiatric: normal affect Laboratory Results Last 24 Hours Test 05/01/16 16:36 05/02/16 00:00 05/02/16 05:32 White Blood Count 21.39 K/uL 19.56 K/uL Red Blood Count 3.80 M/uL 3.70 M/uL Hemoglobin 12.1 g/dL 11.7 g/dL Hematocrit 34.7 % 33.4 % Mean Corpuscular Volume 91.3 fL 90.3 fL Mean Corpuscular Hemoglobin 31.8 pg 31.6 pg Mean Corpuscular Hemoglobin Concent 34.9 g/dl 35.0 g/dl Platelet Count 200 K/uL 193 K/uL Mean Platelet Volume 9.6 fL 9.4 fL Neutrophils (%) (Auto) 83.7 % 84.9 % Lymphocytes (%) (Auto) 8.8 % 7.4 % Monocytes (%) (Auto) 6.9 % 6.9 % Eosinophils (%) (Auto) 0.2 % 0.1 % Basophils (%) (Auto) 0.0 % 0.1 % Neutrophils # (Auto) 17.90 K/uL 16.62 K/uL Lymphocytes # (Auto) 1.89 K/uL 1.45 K/uL Monocytes # (Auto) 1.47 K/uL 1.35 K/uL Eosinophils # (Auto) 0.04 K/uL 0.01 K/uL Basophils # (Auto) 0.01 K/uL 0.02 K/uL RDW Standard Deviation 46.1 fL 46.1 fL RDW Coefficient of Variation 13.9 % 13.9 % Immature Granulocyte % (Auto) 0.4 % 0.6 % Immature Granulocyte # (Auto) 0.08 K/uL 0.11 K/uL Prothrombin Time 10.7 SECONDS Prothromb Time International Ratio 1.0 Sodium Level 138 mmol/L 140 mmol/L Potassium Level 3.8 mmol/L 3.5 mmol/L Chloride Level 103 mmol/L 107 mmol/L Carbon Dioxide Level 25 mmol/L 22 mmol/L Anion Gap 10.0 mmol/L 11.0 mmol/L Blood Urea Nitrogen 27 mg/dl 24 mg/dl Creatinine 1.40 mg/dl 1.30 mg/dl Est Creatinine Clear Calc Drug Dose 38.2 ml/min 41.1 ml/min Estimated GFR () 53.1 58.1 Estimated GFR (Non- 45.8 50.1 BUN/Creatinine Ratio 19.6 18.2 Random Glucose 135 mg/dl 147 mg/dl Calcium Level 8.6 mg/dl 8.0 mg/dl Magnesium Level 2.4 mg/dl 2.2 mg/dl Lipase 271 U/L 234 U/L Prostate Specific Antigen 8.430 ng/ml Urine Color DK YELLOW Urine Appearance CLEAR Urine pH 5.5 Urine Specific [place] > 1.045 Urine Protein 1+ Urine Glucose (UA) NEG Urine Ketones NEG Urine Occult Blood NEG Urine Nitrite NEG Urine Bilirubin NEG Urine Urobilinogen NEG Urine Leukocyte Esterase NEG Urine WBC (Auto) /hpf Urine RBC (Auto) /hpf Urine Hyaline Casts (Auto) /lpf Urine Epithelial Cells (Auto) /lpf Urine Bacteria (Auto) Urine RBC 0-4 /hpf Urine WBC 1-5 /hpf Urine Epithelial Cells 0-5 /lpf Urine Renal Epithelial Cells /lpf Urine Bacteria NEG Urine Yeast (Auto) Total Bilirubin 1.0 mg/dl Direct Bilirubin 0.4 mg/dl Aspartate Amino Transf (AST/SGOT) 33 U/L Alanine Aminotransferase (ALT/SGPT) 94 U/L Alkaline Phosphatase 180 U/L C-Reactive Protein 17.00 mg/dl Total Protein 5.7 gm/dl Albumin 1.9 gm/dl Diagnostic Results ULTRASOUND ABDOMEN COMPLETE CLINICAL HISTORY: Pancreatitis an cholecystitis shown by CT. Generalized abdominal pain. COMPARISON STUDY: Abdominal CT from [facility] dated 05/01/2016. TECHNIQUE: Real-time, grayscale, and color flow sonography of the abdomen was performed. Images are reviewed in the transverse and longitudinal planes. FINDINGS: Liver: The liver is normal in size and demonstrates heterogeneously increased echotexture suggesting hepatic steatosis. There is no intrahepatic biliary ductal dilatation. The main portal vein is patent. Gallbladder: The gallbladder is distended and filled with shadowing stones and sludge. The gallbladder is wall is thickened measuring up to 5 mm. A sonographic Suresh's sign is equivocal as the patient received analgesia. There is trace pericholecystic fluid. Echogenic foci within the gallbladder likely represent foci of gas. The common bile duct is dilated measuring up to 1.1 cm in diameter. Pancreas: The pancreas is not well visualized by overlying bowel gas. Spleen: The spleen is normal in size and echotexture, measuring 11.3 cm in length. Kidneys: The kidneys demonstrate cortical atrophy. There is no hydronephrosis. The right kidney measures 10.7 cm in length and the left kidney measures 10.7 cm in length. A 1.2 cm cyst is noted in the left kidney. No shadowing calculi are identified. Abdominal vasculature: Visualized portions of the abdominal aorta are normal in caliber noting atherosclerotic calcification and irregularity. The IVC is normal as visualized. Ascites: None. IMPRESSION: 1. Cholelithiasis and biliary sludge with evidence of acute cholecystitis, possibly emphysematous. Surgical consultation is advised. 2. The pancreas was not visualized. The CT findings are consistent with acute pancreatitis. 3. Findings suggest hepatic steatosis. Electronically signed by: Augustin Rangel M.D. 05/01/2016 10:54 PM Dictated Date/Time: 05/01/2016 10:50 PM Assessment & Plan Reason Critically Ill: Acute cholecystitis with gangrenous cholecystitis PLAN: Neuro: Pain well-controlled Resp: Supplemental oxygen as needed CV: Continue atenolol Fluids/Renal: Lactated Ringer's running at 125 ML's per hour ID: Complicated cholecystitis: Continue Zosyn for 4 days, added Diflucan 400 mg IV every day for 4 days GI/Nutrition: Clear liquid diet per Dr. Miller, watch for postoperative ileus Heme: Pre-existing anemia Endocrine: Adequate glucose control at this point I have personally spent 30 minutes of critical care time in the direct management of this patient. This is a life/limb threatening event. This includes time spent evaluating patient, direct bedside care, chart review, placing orders, interpretation of diagnostic studies, discussion with consultants, patient, and family members, as well as other required patient management activities. This time is exclusive of all separately billable procedures, and teaching time and separate from and in addition to any other critical care service time.
[2016-05-02] MEDS: FLUCONAZOLE / NSS 200 MG in PREMIXED NSS 100 ML IV SCH ×2 (16:44→17:58)
[2016-05-02] MEDS ORDERED: ALBUT/IPRATROP 3MG/0.5MG NEB 3 ML VIAL INH PRN (18:00)
--- NOTE | 2016-05-02 18:57 | Progress Note ---
Subjective Date of Service: May 02, 2016. Subjective Pt evaluation today including: conversation w/ patient, conversation w/ family (daughter at bedside), physical exam, chart review, lab review, review of studies (abdominal u/s, operative report), conversation w/ consumer services consultant (critical care), review of inpatient medication list Pain: abdomen PO Intake: tolerated clears (small amount) after surgery Voiding: no voiding problems (voided post-op already) tele stable since surgery denies dyspnea c/o allergy issues and requests his zyrtec today denies vomiting since returning from the OR no chest pain Review of Systems Constitutional: + fever Respiratory: No dyspnea at rest Cardiac: No chest pain, No orthopnea Abdomen: + pain, No nausea, No vomiting Objective Vital Signs Date Time Temp Pulse Resp B/P Pulse Ox O2 Delivery O2 Flow Rate FiO2 05/02/16 17:18 86 21 91 Nasal Cannula 2.0 05/02/16 11:27 37.9 05/02/16 11:20 80 20 127/48 96 Mask 10 05/02/16 11:11 37.9 86 20 105/52 97 Mask 10 05/02/16 07:42 37.0 78 15 113/66 95 Nasal Cannula 1.0 05/02/16 03:28 94 Nasal Cannula 1.0 05/01/16 23:48 37.4 83 18 128/73 90 Room Air 05/01/16 19:52 Room Air 05/01/16 19:19 75 112/66 Physical Exam General Appearance: no apparent distress ENT: + pertinent finding (MM dry) Neck: no JVD Respiratory/Chest: lungs clear (no rales, no true wheeze; transmitted upper airway noise noted), no respiratory distress, no accessory muscle use Cardiovascular: regular rate, rhythm, no gallop, no murmur Abdomen: non tender (incisions), no organomegaly, + distended (moderate-severe) , + pertinent finding ([address] in the RUQ; multiple dressings) Extremities: no pedal edema Neurologic/Psychiatric: alert, oriented x 3 Laboratory Results Last 24 Hours Test 05/02/16 00:00 05/02/16 05:32 Urine Color DK YELLOW Urine Appearance CLEAR Urine pH 5.5 Urine Specific [place] > 1.045 Urine Protein 1+ Urine Glucose (UA) NEG Urine Ketones NEG Urine Occult Blood NEG Urine Nitrite NEG Urine Bilirubin NEG Urine Urobilinogen NEG Urine Leukocyte Esterase NEG Urine WBC (Auto) /hpf Urine RBC (Auto) /hpf Urine Hyaline Casts (Auto) /lpf Urine Epithelial Cells (Auto) /lpf Urine Bacteria (Auto) Urine RBC 0-4 /hpf Urine WBC 1-5 /hpf Urine Epithelial Cells 0-5 /lpf Urine Renal Epithelial Cells /lpf Urine Bacteria NEG Urine Yeast (Auto) White Blood Count 19.56 K/uL Red Blood Count 3.70 M/uL Hemoglobin 11.7 g/dL Hematocrit 33.4 % Mean Corpuscular Volume 90.3 fL Mean Corpuscular Hemoglobin 31.6 pg Mean Corpuscular Hemoglobin Concent 35.0 g/dl Platelet Count 193 K/uL Mean Platelet Volume 9.4 fL Neutrophils (%) (Auto) 84.9 % Lymphocytes (%) (Auto) 7.4 % Monocytes (%) (Auto) 6.9 % Eosinophils (%) (Auto) 0.1 % Basophils (%) (Auto) 0.1 % Neutrophils # (Auto) 16.62 K/uL Lymphocytes # (Auto) 1.45 K/uL Monocytes # (Auto) 1.35 K/uL Eosinophils # (Auto) 0.01 K/uL Basophils # (Auto) 0.02 K/uL RDW Standard Deviation 46.1 fL RDW Coefficient of Variation 13.9 % Immature Granulocyte % (Auto) 0.6 % Immature Granulocyte # (Auto) 0.11 K/uL Sodium Level 140 mmol/L Potassium Level 3.5 mmol/L Chloride Level 107 mmol/L Carbon Dioxide Level 22 mmol/L Anion Gap 11.0 mmol/L Blood Urea Nitrogen 24 mg/dl Creatinine 1.30 mg/dl Est Creatinine Clear Calc Drug Dose 41.1 ml/min Estimated GFR () 58.1 Estimated GFR (Non- 50.1 BUN/Creatinine Ratio 18.2 Random Glucose 147 mg/dl Calcium Level 8.0 mg/dl Magnesium Level 2.2 mg/dl Total Bilirubin 1.0 mg/dl Direct Bilirubin 0.4 mg/dl Aspartate Amino Transf (AST/SGOT) 33 U/L Alanine Aminotransferase (ALT/SGPT) 94 U/L Alkaline Phosphatase 180 U/L C-Reactive Protein 17.00 mg/dl Total Protein 5.7 gm/dl Albumin 1.9 gm/dl Lipase 234 U/L Assessment and Plan 86yo male with: 1. acute gangrenous cholecystitis with resulting gallstone pancreatitis - latter resolved. s/p lap casper today with bilious ascites noted during his operation today. defer diet to gen surgery and fluid management to surgery/critical care. continue broad-spectrum IV antibiotics. 2. h/o LLE DVT in the setting of ankle injury - occurred 2 years ago. change heparin to q8h dosing for DVT proph. 3. CKD stage 3 - creatinine stable, bmp in am. 4. abnormal LFTs - 2nd to #1; repeat LFTs in am. 5. BPH - cont alpha samaria, watch for post-op urinary retention. 6. abdominal distension - due to insufflation from lap casper; cannot rule out ileus. serial exams clear liquids 7. FEN - cont current fluids and diet, BMP in am 8. mod-severe protein calorie malnutrition - alb 1.9. consider dietary consultation. 9. elevated PSA - this will need to be addressed as outpatient. daughter updated at bedside Continued [facility] stay due to: fever, inadequate po fluid intake, inadequate oral pain control, ambulation difficulties, multiple IV medications needed
[2016-05-02] MEDS ORDERED: COUGH DROP (SUGAR FREE) LOZ 24 LOZ/1 BOX ONE (19:30)
[2016-05-02] MEDS ORDERED: SODIUM CHLORIDE 0.9% 1000ML 500 ML IV SCH (21:00)
[2016-05-02] MEDS ORDERED: NURSING DECISION MEDICATION ORDER SCH (21:00)
[2016-05-02] MEDS: CETIRIZINE HCL 10 MG TAB PO SCH (21:27)
[2016-05-02] MEDS: DOCUSATE SODIUM/SENNA 50/8.6MG TAB PO SCH (21:27)
[2016-05-02] MEDS: TAMSULOSIN HCL 0.4 MG CAP PO SCH (21:27)
[2016-05-02] MEDS: HEPARIN SOD 5000 UNIT/0.5 ML CARP SQ SCH (21:30)
[2016-05-02] MEDS ORDERED: HEPARIN SOD 5000 UNIT/0.5 ML CARP SQ SCH (22:00)
[2016-05-03] VITALS (15 sets, daily range): BP systolic 111–155; BP diastolic 56–86; PULSE 70–93; TEMP 36.8–37.6; O2SAT 90–98
[2016-05-03] MEDS: LACTATED RINGER'S 1000ML 1,000 ML IV SCH ×3 (00:01→19:30)
[2016-05-03] MEDS: PIPERACILL/TAZOBAC IV 3.375 GM in DEXTROSE 5% 100ML 100 ML IV SCH ×3 (01:43→16:47)
[2016-05-03 05:46] LABS: HEMATOCRIT 32.5 % (42-52); MEAN CELL VOLUME 94.2 fL (80-100); MEAN CORPUSCULAR HGB CONC 32.9 g/dl (32-36); MEAN PLATELET VOLUME 9.6 fL (7.4-10.4); PLATELET COUNT 178 K/uL (130-400); RED BLOOD COUNT 3.45 M/uL (4.7-6.1); WHITE BLOOD COUNT 16.08 K/uL (4.8-10.8)
[2016-05-03] MEDS: HEPARIN SOD 5000 UNIT/0.5 ML CARP SQ SCH ×3 (05:52→20:32)
[2016-05-03 06:22] LABS: ALB/GLOB RATIO 0.5 (0.9-2); BUN/CREATININE RATIO 11.3 (10-20); CALCIUM 7.7 mg/dl (8.5-10.1); CREATININE 1.3 mg/dl (0.60-1.40); MAGNESIUM 2.3 mg/dl (1.8-2.4); PHOSPHORUS 1.9 mg/dl (2.5-4.9); POTASSIUM 3.5 mmol/L (3.5-5.1)
--- NOTE | 2016-05-03 06:44 | Surgery Progress Note ---
Surgery Progress Note Date of Service May 03, 2016. Subjective awake, alert, afeb positive fluid balance, fair urine output drains- not much blood, possibly bilious, cloudy Objective Vital Signs: Date Time Temp Pulse Resp B/P Pulse Ox O2 Delivery O2 Flow Rate FiO2 05/03/16 06:00 85 21 155/80 92 Nasal Cannula 2.0 05/03/16 04:00 36.9 84 21 137/72 90 Nasal Cannula 2.0 05/03/16 04:00 Nasal Cannula 2.0 05/03/16 02:00 79 18 127/68 95 Humidified Oxygen 2.0 05/03/16 00:00 36.9 85 22 127/56 98 Nasal Cannula 2.0 05/03/16 00:00 Nasal Cannula 2.0 05/02/16 22:00 86 15 128/61 94 Nasal Cannula 2.0 05/02/16 21:00 100 17 124/66 96 Nasal Cannula 2.0 05/02/16 20:15 96 22 95 Nasal Cannula 4.0 05/02/16 20:00 Nasal Cannula 2.0 05/02/16 20:00 36.7 99 28 122/72 98 Nasal Cannula 2.0 05/02/16 17:18 86 21 91 Nasal Cannula 2.0 05/02/16 11:27 37.9 05/02/16 11:20 80 20 127/48 96 Mask 10 05/02/16 11:11 37.9 86 20 105/52 97 Mask 10 05/02/16 07:42 37.0 78 15 113/66 95 Nasal Cannula 1.0 General Appearance: + mild distress (wheezing) Respiratory/Chest: + wheezing Cardiovascular: regular rate, rhythm Abdomen: + distended Incision(s): intact Laboratory Results: Results Past 24 Hours Test 05/02/16 21:36 05/03/16 05:23 05/03/16 06:12 Range/Units Bedside Glucose 274 190 70-99 mg/dl White Blood Count 16.08 4.8-10.8 K/uL Red Blood Count 3.45 4.7-6.1 M/uL Hemoglobin 10.7 14.0-18.0 g/dL Hematocrit 32.5 42-52 % Mean Corpuscular Volume 94.2 80-100 fL Mean Corpuscular Hemoglobin 31.0 25-34 pg Mean Corpuscular Hemoglobin Concent 32.9 32-36 g/dl RDW Standard Deviation 49.8 36.4-46.3 fL RDW Coefficient of Variation 14.6 11.5-14.5 % Platelet Count 178 130-400 K/uL Mean Platelet Volume 9.6 7.4-10.4 fL Sodium Level 141 136-145 mmol/L Potassium Level 3.5 3.5-5.1 mmol/L Chloride Level 108 98-107 mmol/L Carbon Dioxide Level 25 21-32 mmol/L Anion Gap 8.0 3-11 mmol/L Blood Urea Nitrogen 15 7-18 mg/dl Creatinine 1.30 0.60-1.40 mg/dl Est Creatinine Clear Calc Drug Dose 41.1 ml/min Estimated GFR () 58.1 Estimated GFR (Non- 50.1 BUN/Creatinine Ratio 11.3 10-20 Random Glucose 191 70-99 mg/dl Calcium Level 7.7 8.5-10.1 mg/dl Phosphorus Level 1.9 2.5-4.9 mg/dl Magnesium Level 2.3 1.8-2.4 mg/dl Total Bilirubin 0.7 0.2-1 mg/dl Direct Bilirubin 0.4 0-0.2 mg/dl Aspartate Amino Transf (AST/SGOT) 26 15-37 U/L Alanine Aminotransferase (ALT/SGPT) 68 12-78 U/L Alkaline Phosphatase 138 45-117 U/L Total Protein 5.3 6.4-8.2 gm/dl Albumin 1.8 3.4-5.0 gm/dl Globulin 3.5 2.5-4.0 gm/dl Albumin/Globulin Ratio 0.5 0.9-2 Assessment & Plan 05/03/16- s/p laparoscopic cholecystectomy- posterior wall remains- sloughed entire necrotic mucosa- had cloudy bilious ascites. Drains in place - monitor for bile leak, concern for developing ileus, monitor urine output- may need dose of lasix. Cont ICU mgt 05/02/16- for OR this am- laparoscopic casper, possible cholangiogram 05/02/16- for OR this am- laparoscopic casper, possible cholangiogram
--- NOTE | 2016-05-03 07:21 | DIAGNOSTIC IMAGING REPORT ---
CHEST ONE VIEW PORTABLE CLINICAL HISTORY: wheezing/fluid overload COMPARISON STUDY: No previous studies for comparison. FINDINGS: There is elevation left hemidiaphragm. There is no overt failure. There is blunting of the left lateral costophrenic angle. A small effusion present. There are bibasilar opacities likely atelectatic although an inflammatory process could appear similar.[ IMPRESSION: 1. Elevation left hemidiaphragm 2. Bibasilar opacities likely atelectatic although an inflammatory process could appear similar 3. Possible small left pleural effusion Electronically signed by: Morgan Atkins M.D. 05/03/2016 7:20 AM Dictated Date/Time: 05/03/2016 7:19 AM
[2016-05-03] MEDS ORDERED: POTASSIUM PHOS 3 MMOL/1 ML INFUSION IV STA (07:24)
[2016-05-03] MEDS: DOCUSATE SODIUM/SENNA 50/8.6MG TAB PO SCH ×2 (07:57→20:32)
[2016-05-03] MEDS: MONTELUKAST SOD 10 MG TAB PO SCH (07:57)
[2016-05-03] MEDS ORDERED: POTASSIUM PHOSPHATE INJ 21 MMOL in SODIUM CHLORIDE 0.9% 500ML 500 ML IV SCH (08:00)
[2016-05-03] MEDS: ALBUTEROL 0.5% NEB SOLN 2.5 MG/0.5 ML VIAL INH SCH ×3 (08:51→19:07)
[2016-05-03] MEDS ORDERED: ALBUTEROL 0.083% NEBU SOLN 3 ML VIAL INH SCH (09:00)
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
[2016-05-03] MEDS: INSULIN ASPART 100 UNITS/ML 3 ML PEN SC SCH ×3 (11:00→20:36)
[2016-05-03] MEDS: PANTOprazole INJ 40 MG in SYRINGE 0 ML IV SCH (12:44)
[2016-05-03] MEDS: HYDROmorphone INJ 1 MG/ML SYR IV PRN (12:45)
--- NOTE | 2016-05-03 15:51 | Progress Note ---
Subjective Date of Service: May 03, 2016. Subjective this pt is doing well for having a gangrenous gallbladder, the pt is having some bowel sounds, pain control is good. Review of Systems Constitutional: + weakness, No chills, No fever Respiratory: No cough, No shortness of breath Cardiac: No chest pain, No edema Abdomen: + constipation, + nausea, + pain, No diarrhea, No vomiting Male : No dysuria, No urinary frequency Objective Vital Signs Date Time Temp Pulse Resp B/P Pulse Ox O2 Delivery O2 Flow Rate FiO2 05/03/16 06:00 85 21 155/80 92 Nasal Cannula 2.0 05/03/16 04:00 36.9 84 21 137/72 90 Nasal Cannula 2.0 05/03/16 04:00 Nasal Cannula 2.0 05/03/16 02:00 79 18 127/68 95 Humidified Oxygen 2.0 05/03/16 00:00 36.9 85 22 127/56 98 Nasal Cannula 2.0 05/03/16 00:00 Nasal Cannula 2.0 05/02/16 22:00 86 15 128/61 94 Nasal Cannula 2.0 05/02/16 21:00 100 17 124/66 96 Nasal Cannula 2.0 05/02/16 20:15 96 22 95 Nasal Cannula 4.0 05/02/16 20:00 Nasal Cannula 2.0 05/02/16 20:00 36.7 99 28 122/72 98 Nasal Cannula 2.0 05/02/16 17:18 86 21 91 Nasal Cannula 2.0 05/02/16 11:27 37.9 05/02/16 11:20 80 20 127/48 96 Mask 10 05/02/16 11:11 37.9 86 20 105/52 97 Mask 10 05/02/16 07:42 37.0 78 15 113/66 95 Nasal Cannula 1.0 Physical Exam General Appearance: WD/WN, + mild distress Neck: supple, no JVD Respiratory/Chest: chest non-tender, lungs clear, normal breath sounds Cardiovascular: regular rate, rhythm, + systolic murmur Abdomen: soft, + distended, + tenderness Neurologic/Psychiatric: alert, oriented x 3 Laboratory Results Last 24 Hours Test 05/02/16 21:36 05/03/16 05:23 05/03/16 06:12 Bedside Glucose 274 mg/dl 190 mg/dl White Blood Count 16.08 K/uL Red Blood Count 3.45 M/uL Hemoglobin 10.7 g/dL Hematocrit 32.5 % Mean Corpuscular Volume 94.2 fL Mean Corpuscular Hemoglobin 31.0 pg Mean Corpuscular Hemoglobin Concent 32.9 g/dl RDW Standard Deviation 49.8 fL RDW Coefficient of Variation 14.6 % Platelet Count 178 K/uL Mean Platelet Volume 9.6 fL Sodium Level 141 mmol/L Potassium Level 3.5 mmol/L Chloride Level 108 mmol/L Carbon Dioxide Level 25 mmol/L Anion Gap 8.0 mmol/L Blood Urea Nitrogen 15 mg/dl Creatinine 1.30 mg/dl Est Creatinine Clear Calc Drug Dose 41.1 ml/min Estimated GFR () 58.1 Estimated GFR (Non- 50.1 BUN/Creatinine Ratio 11.3 Random Glucose 191 mg/dl Calcium Level 7.7 mg/dl Phosphorus Level 1.9 mg/dl Magnesium Level 2.3 mg/dl Total Bilirubin 0.7 mg/dl Direct Bilirubin 0.4 mg/dl Aspartate Amino Transf (AST/SGOT) 26 U/L Alanine Aminotransferase (ALT/SGPT) 68 U/L Alkaline Phosphatase 138 U/L Total Protein 5.3 gm/dl Albumin 1.8 gm/dl Globulin 3.5 gm/dl Albumin/Globulin Ratio 0.5 Assessment and Plan 86 M transferred from [facility] with acute cholecystitis found at surgery to have more significant injury to gall bladder with necrosis and concern for peritonitis observed in the ICU post po Cholecystitis, continue zosyn and post op bowel recovery/diet advancement with surgical oversight History of tobacco abuse, no issues with respiratory failure Chronic BPH, stable preoperatively continue flomax DVT prevention will be with heparin once hemostasis is achieved Acute blood loss anemia is stable and not in transfusion range Mild protein malnutrition, will provide supplements once taking po Continued [facility] stay due to: fever, inadequate po fluid intake, inadequate oral pain control, ambulation difficulties, multiple IV medications needed
[2016-05-03] MEDS: FLUCONAZOLE / NSS 200 MG in PREMIXED NSS 100 ML IV SCH (16:42)
[2016-05-03] MEDS: CETIRIZINE HCL 10 MG TAB PO SCH (20:32)
[2016-05-03] MEDS: TAMSULOSIN HCL 0.4 MG CAP PO SCH (20:33)
[2016-05-04] VITALS (12 sets, daily range): BP systolic 124–160; BP diastolic 71–100; PULSE 71–83; TEMP 36.5–37.4; O2SAT 92–99
[2016-05-04] MEDS: ALBUTEROL 0.5% NEB SOLN 2.5 MG/0.5 ML VIAL INH SCH ×4 (01:56→20:14)
[2016-05-04] MEDS: LACTATED RINGER'S 1000ML 1,000 ML IV SCH (03:30)
[2016-05-04 05:38] LABS: BASO % 0.1 %; BASO ABS # 0.02 K/uL (0-0.2); COMPLETE YES; EOS % 0.9 %; HEMATOCRIT 33.1 % (42-52); IG% 1.4 %; LYMPH ABS # 2.03 K/uL (1.2-3.4); MEAN CELL VOLUME 94.6 fL (80-100); MEAN CORPUSCULAR HEMOGLOBIN 31.4 pg (25-34); MEAN CORPUSCULAR HGB CONC 33.2 g/dl (32-36); MEAN PLATELET VOLUME 9.6 fL (7.4-10.4); MONO % 7.1 %; NEUT % 79.5 %; PLATELET COUNT 196 K/uL (130-400); WHITE BLOOD COUNT 18.46 K/uL (4.8-10.8)
[2016-05-04] MEDS: HEPARIN SOD 5000 UNIT/0.5 ML CARP SQ SCH ×3 (05:46→21:56)
[2016-05-04 06:10] LABS: ALB/GLOB RATIO 0.4 (0.9-2); BUN/CREATININE RATIO 6.4 (10-20); CALCIUM 7.8 mg/dl (8.5-10.1); CREATININE 1.4 mg/dl (0.60-1.40); MAGNESIUM 2.2 mg/dl (1.8-2.4); PHOSPHORUS 1.9 mg/dl (2.5-4.9); POTASSIUM 3.3 mmol/L (3.5-5.1)
[2016-05-04] MEDS: INSULIN ASPART 100 UNITS/ML 3 ML PEN SC SCH ×5 (06:45→21:17)
--- NOTE | 2016-05-04 06:54 | DIAGNOSTIC IMAGING REPORT ---
CHEST ONE VIEW PORTABLE CLINICAL HISTORY: Abnormal breath sounds. Possible pulmonary edema. Wheezing. COMPARISON STUDY: 05/03/2016 FINDINGS: There is persistent elevation of left hemidiaphragm. There is mild mediastinal prominence unchanged the prior study. There are bibasilar opacities, likely atelectatic although an inflammatory process could appear similar. There is blunting of the lateral costophrenic angles. [ IMPRESSION: 1. Bibasilar opacities, likely atelectatic 2. Elevation left hemidiaphragm 3. Blunting of both lateral costophrenic angles Electronically signed by: Morgan Atkins M.D. 05/04/2016 6:52 AM Dictated Date/Time: 05/04/2016 6:51 AM
[2016-05-04] MEDS ORDERED: POTASSIUM PHOS 3 MMOL/1 ML INFUSION IV STA (07:07)
--- NOTE | 2016-05-04 07:20 | Surgery Progress Note ---
Surgery Progress Note Date of Service May 04, 2016. Subjective + bowel movement, No nausea, No vomiting alert, positive fluid balance, very low albumin, positive tissue edema Objective Vital Signs: Date Time Temp Pulse Resp B/P Pulse Ox O2 Delivery O2 Flow Rate FiO2 05/04/16 06:06 76 23 149/71 96 Nasal Cannula 3.0 05/04/16 04:00 37.1 75 21 124/79 95 Nasal Cannula 3.0 05/04/16 04:00 93 Nasal Cannula 3.0 05/04/16 02:00 81 22 135/100 92 Nasal Cannula 2.0 05/04/16 01:56 78 22 93 Nasal Cannula 2.0 05/04/16 00:00 37.4 71 25 131/77 93 Nasal Cannula 2.0 05/04/16 00:00 93 Room Air 05/03/16 22:00 83 23 128/73 94 Nasal Cannula 2.0 05/03/16 20:00 37.6 93 24 129/70 92 Room Air 05/03/16 20:00 91 Room Air 05/03/16 19:07 86 20 93 Room Air 05/03/16 18:00 88 23 130/86 93 05/03/16 16:00 92 Room Air 05/03/16 16:00 36.8 84 20 133/60 92 Room Air 05/03/16 14:31 78 20 90 Nasal Cannula 4.0 05/03/16 14:00 78 16 111/71 92 Room Air 05/03/16 12:00 37.0 75 20 115/60 94 Room Air 05/03/16 12:00 93 Room Air 05/03/16 10:00 85 22 115/67 92 Nasal Cannula 2.0 05/03/16 08:52 80 26 94 Nasal Cannula 4.0 05/03/16 08:00 36.8 70 18 148/77 94 Nasal Cannula 2.0 05/03/16 08:00 Nasal Cannula 05/03/16 08:00 94 Nasal Cannula 2.0 General Appearance: no apparent distress Respiratory/Chest: no respiratory distress Abdomen: non tender, + distended Incision(s): drainage (subhep drain- minimal serobilious, pelvic dr- cloudy lt yellow- ?chylous) Laboratory Results: Results Past 24 Hours Test 05/03/16 11:23 05/03/16 16:45 05/03/16 20:36 05/04/16 05:20 Range/Units Bedside Glucose 168 140 173 70-99 mg/dl White Blood Count 18.46 4.8-10.8 K/uL Red Blood Count 3.50 4.7-6.1 M/uL Hemoglobin 11.0 14.0-18.0 g/dL Hematocrit 33.1 42-52 % Mean Corpuscular Volume 94.6 80-100 fL Mean Corpuscular Hemoglobin 31.4 25-34 pg Mean Corpuscular Hemoglobin Concent 33.2 32-36 g/dl Platelet Count 196 130-400 K/uL Mean Platelet Volume 9.6 7.4-10.4 fL Neutrophils (%) (Auto) 79.5 % Lymphocytes (%) (Auto) 11.0 % Monocytes (%) (Auto) 7.1 % Eosinophils (%) (Auto) 0.9 % Basophils (%) (Auto) 0.1 % Neutrophils # (Auto) 14.67 1.4-6.5 K/uL Lymphocytes # (Auto) 2.03 1.2-3.4 K/uL Monocytes # (Auto) 1.31 0.11-0.59 K/uL Eosinophils # (Auto) 0.17 0-0.5 K/uL Basophils # (Auto) 0.02 0-0.2 K/uL RDW Standard Deviation 50.2 36.4-46.3 fL RDW Coefficient of Variation 14.6 11.5-14.5 % Immature Granulocyte % (Auto) 1.4 % Immature Granulocyte # (Auto) 0.26 0.00-0.02 K/uL Sodium Level 140 136-145 mmol/L Potassium Level 3.3 3.5-5.1 mmol/L Chloride Level 105 98-107 mmol/L Carbon Dioxide Level 26 21-32 mmol/L Anion Gap 9.0 3-11 mmol/L Blood Urea Nitrogen 9 7-18 mg/dl Creatinine 1.40 0.60-1.40 mg/dl Est Creatinine Clear Calc Drug Dose 38.7 ml/min Estimated GFR () 53.1 Estimated GFR (Non- 45.8 BUN/Creatinine Ratio 6.4 10-20 Random Glucose 162 70-99 mg/dl Calcium Level 7.8 8.5-10.1 mg/dl Phosphorus Level 1.9 2.5-4.9 mg/dl Magnesium Level 2.2 1.8-2.4 mg/dl Total Bilirubin 0.7 0.2-1 mg/dl Aspartate Amino Transf (AST/SGOT) 23 15-37 U/L Alanine Aminotransferase (ALT/SGPT) 57 12-78 U/L Alkaline Phosphatase 133 45-117 U/L Total Protein 5.3 6.4-8.2 gm/dl Albumin 1.6 3.4-5.0 gm/dl Globulin 3.7 2.5-4.0 gm/dl Albumin/Globulin Ratio 0.4 0.9-2 Lipase 173 73-393 U/L Assessment & Plan 05/04/16- overall doing better than most pts in this situation- try a dose of lasix leave mars, drains. Adv diet, cont atbx, transfer to telemetry unless ICU/med team think otherwise. PT/OT- pt will need extended care but will also be in hosp 5-7 addnl days. Decrease IV 05/03/16- s/p laparoscopic cholecystectomy- posterior wall remains- sloughed entire necrotic mucosa- had cloudy bilious ascites. Drains in place - monitor for bile leak, concern for developing ileus, monitor urine output- may need dose of lasix. Cont ICU mgt 05/02/16- for OR this am- laparoscopic casper, possible cholangiogram 05/03/16- s/p laparoscopic cholecystectomy- posterior wall remains- sloughed entire necrotic mucosa- had cloudy bilious ascites. Drains in place - monitor for bile leak, concern for developing ileus, monitor urine output- may need dose of lasix. Cont ICU mgt 05/02/16- for OR this am- laparoscopic [place]per, possible cholangiogram
[2016-05-04] MEDS ORDERED: POTASSIUM PHOSPHATE INJ 21 MMOL in SODIUM CHLORIDE 0.9% 500ML 500 ML IV ONE (07:30)
[2016-05-04] MEDS ORDERED: FUROSEMIDE INJ 20 MG in SYRINGE 0 ML IV ONE (07:30)
[2016-05-04 07:52] LABS: ESTIMATED AVERAGE GLUCOSE 140 mg/dl; HA1C FLAG Normal (Normal)
[2016-05-04] MEDS: POTASSIUM CHLR 10 MEQ / WTR 10 MEQ in PREMIXED WATER 100 ML IV SCH ×4 (07:58→13:42)
[2016-05-04] MEDS: PIPERACILL/TAZOBAC IV 3.375 GM in DEXTROSE 5% 100ML 100 ML IV SCH ×5 (07:59→23:48)
[2016-05-04] MEDS: DOCUSATE SODIUM/SENNA 50/8.6MG TAB PO SCH ×2 (08:00→21:00)
[2016-05-04] MEDS: MONTELUKAST SOD 10 MG TAB PO SCH (08:00)
--- NOTE | 2016-05-04 10:32 | Critical Care Progress Note ---
Critical Care Progress Note Date of Service May 04, 2016. ICU Day ICU Day Number: [address] Whitaker Subjective Doing better . pain is well controlled about 2/10 at incision sites. had a BM and has indu on a clear liquid diet. denies fevers/chills but has been wheezing with productive cough. denies CP/ palpitations Objective GENERAL: Patient is in no acute distress. HEENT: No acute trauma, normocephalic atraumatic, mucous membranes moist, no nasal congestion, no scleral icterus. NECK: No stridor, no adenopathy, no meningismus, trachea is midline. LUNGS: wheezing diffusely and at bases, breath sounds equal. HEART: regular rate and rhythm. ABDOMEN: firm, distended, JAMAAL #1 with bilious drainage JAMAAL #2 with serosanguineous drainage, tenderness at incision sites EXTREMITIES: pedal edema, full range of motion of all the joints without pain or difficulty, no signs for acute trauma. NEUROLOGIC: Oriented x 3, no acute motor or sensory deficits, no focal weakness. SKIN: No rash, no jaundice, no diaphoresis. Assessment & Plan 86 y/o M admitted to ICU s/p lap cholecystectomy for acute gangrenous cholecystitis performed on 05/02. post op day 2. had wheezing inspite of scheduled albuterol q6h, LR was held overnight. Neuro: - Pain well controlled. - Dc Dilaudid. 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 Discussed with Dr. Bhandari and agree with findings and plan as documented in the note. Any exceptions or clarifications are listed here: The patient's care was discussed on multidisciplinary rounds today. He's feeling better and pain is adequately controlled. Has not received [place] to this point yet. He had a BM this morning and is tolerating clears - advancing to fulls. Only getting 500cc on incentive spirometry. IVF on hold - had wheezing last night but not SOB with it. On 3LNC. VS, labs, I/O, CXR and meds reviewed. Atelectasis on CXR with elevated L hemidiaphragm - not impressive as far as pulmonary edema goes. Received Lasix 20mg IV x1 due to 9L+ fluid balance. He may require more - follow u/o and keep mars. JAMAAL looks less cloudy today - still on abx. Lytes are being repleted and he is getting PT. Overall he's doing remarkably well and is ready for transfer to telemetry from my standpoint. Documented By: Sera Whitaker Consults & Procedures Consultants: General Surgery Procedures: s/p laparoscopic cholecystectomy Data Medications: Current Inpatient Medications Medications (Trade) Dose Ordered Sig/Adithya Route Start Time Stop Time Status Last Admin Dose Admin Acetaminophen (Tylenol Tab) 650 mg Q4H PRN PO 05/01/16 16:15 05/31/16 16:14 Al Hydrox/Mg Hydrox/Simethicone (Maalox Max Susp) 15 ml Q4H PRN PO 05/01/16 16:15 05/31/16 16:14 Magnesium Hydroxide (Milk Of Magnesia Susp) 30 ml Q6H PRN PO 05/01/16 16:15 05/31/16 16:14 Polyethylene (Miralax Powder Packet) 17 gm DAILY PRN PO 05/01/16 16:15 05/31/16 16:14 Ondansetron HCl 4 mg 4 mg Q6H PRN IV 05/01/16 16:15 05/31/16 16:14 05/02/16 19:43 4 MG Piperacillin Sod/ Tazobactam Sod/ Dextrose (Zosyn Iv/D5 100ml) 115 ml @ 28.75 mls/ hr Q8@0000,0800,1600 IV 05/02/16 00:00 05/14/16 23:59 05/04/16 07:59 28.75 MLS/HR Piperacillin Sod/ Tazobactam Sod (Consult) 1 ea UD PRN N/A 05/01/16 16:30 05/31/16 16:29 Atenolol (Tenormin Tab) 25 mg DAILY PO 05/02/16 09:00 06/01/16 08:59 05/04/16 08:00 25 MG Montelukast Sodium (Singulair Tab) 10 mg DAILY PO 05/02/16 09:00 06/01/16 08:59 05/04/16 08:00 10 MG Tamsulosin HCl (Flomax Cap) 0.4 mg QPM PO 05/01/16 21:00 05/31/16 20:59 05/03/16 20:33 0.4 MG Acetaminophen/ Hydrocodone Bitart (Timberlake 5/325 Tab) 1 tab Q4 PRN PO 05/02/16 11:30 05/16/16 11:29 Acetaminophen/ Hydrocodone Bitart (Tim[place]lake 5/325 Tab) 2 tab Q4 PRN PO 05/02/16 11:30 05/16/16 11:29 Senna/Docusate Sodium (Senokot S Tab) 1 tab BID PO 05/02/16 21:00 06/01/16 20:59 05/04/16 08:00 1 TAB Cetirizine HCl (zyrTEC TAB) 5 mg HS PO 05/02/16 21:00 06/01/16 20:59 05/03/16 20:32 5 MG Albuterol/ Ipratropium (Duoneb) 3 ml Q4R PRN INH 05/02/16 18:00 06/01/16 17:59 05/02/16 20:15 3 ML Heparin Sodium (Porcine) (Heparin Sq 5000 Unit/0.5ml) 5,000 unit Q8H SQ 05/02/16 22:00 06/01/16 21:59 05/04/16 05:46 5,000 UNIT Albuterol Sulfate 2.5 mg 2.5 mg Q6R INH 05/03/16 09:00 06/02/16 08:59 05/04/16 08:00 2.5 MG Fluconazole/ Sodium Chloride/ Prmx (Diflucan IV/ Premixed Nss) 100 ml @ 100 mls/hr DAILY@1500 IV 05/03/16 15:00 06/02/16 14:59 05/03/16 16:42 100 MLS/HR Insulin Aspart SLIDING SCALE ACHS SC 05/03/16 11:00 06/02/16 10:59 Potassium Chloride 10 meq/ Prmx 100 ml @ 100 mls/hr Q1H IV 05/04/16 07:30 05/04/16 11:29 05/04/16 10:09 100 MLS/HR Potassium Phosphate/Sodium Chloride (Potassium Phosphate Inj/Nss 500ml) 507 ml @ 144.857 mls/hr TODAY@0730 ONCE IV 05/04/16 07:30 05/04/16 10:59 05/04/16 07:57 144.857 MLS/HR Pantoprazole Sodium (Protonix Tab) 40 mg QAM PO 05/04/16 11:00 06/03/16 10:59 I & O: 24-Hour Column 05/04/16 07:59 Intake Total 4545 ml Output Total 1750 ml Balance 2795 ml Vital Signs: Date Time Temp Pulse Resp B/P Pulse Ox O2 Delivery O2 Flow Rate FiO2 05/04/16 10:00 83 24 160/74 94 Nasal Cannula 3.0 05/04/16 08:00 Nasal Cannula 3.0 05/04/16 08:00 82 20 96 Nasal Cannula 2.0 05/04/16 08:00 37.1 81 26 140/72 99 Nasal Cannula 3.0 05/04/16 06:06 76 23 149/71 96 Nasal Cannula 3.0 05/04/16 04:00 37.1 75 21 124/79 95 Nasal Cannula 3.0 05/04/16 04:00 93 Nasal Cannula 3.0 05/04/16 02:00 81 22 135/100 92 Nasal Cannula 2.0 05/04/16 01:56 78 22 93 Nasal Cannula 2.0 05/04/16 00:00 37.4 71 25 131/77 93 Nasal Cannula 2.0 05/04/16 00:00 93 Room Air 05/03/16 22:00 83 23 128/73 94 Nasal Cannula 2.0 05/03/16 20:00 37.6 93 24 129/70 92 Room Air 05/03/16 20:00 91 Room Air 05/03/16 19:07 86 20 93 Room Air 05/03/16 18:00 88 23 130/86 93 05/03/16 16:00 92 Room Air 05/03/16 16:00 36.8 84 20 133/60 92 Room Air 05/03/16 14:31 78 20 90 Nasal Cannula 4.0 05/03/16 14:00 78 16 111/71 92 Room Air 05/03/16 12:00 37.0 75 20 115/60 94 Room Air 05/03/16 12:00 93 Room Air Laboratory Results: Last 24 Hours Test 05/03/16 11:23 05/03/16 16:45 05/03/16 20:36 05/04/16 05:20 Bedside Glucose 168 mg/dl 140 mg/dl 173 mg/dl White Blood Count 18.46 K/uL Red Blood Count 3.50 M/uL Hemoglobin 11.0 g/dL Hematocrit 33.1 % Mean Corpuscular Volume 94.6 fL Mean Corpuscular Hemoglobin 31.4 pg Mean Corpuscular Hemoglobin Concent 33.2 g/dl Platelet Count 196 K/uL Mean Platelet Volume 9.6 fL Neutrophils (%) (Auto) 79.5 % Lymphocytes (%) (Auto) 11.0 % Monocytes (%) (Auto) 7.1 % Eosinophils (%) (Auto) 0.9 % Basophils (%) (Auto) 0.1 % Neutrophils # (Auto) 14.67 K/uL Lymphocytes # (Auto) 2.03 K/uL Monocytes # (Auto) 1.31 K/uL Eosinophils # (Auto) 0.17 K/uL Basophils # (Auto) 0.02 K/uL RDW Standard Deviation 50.2 fL RDW Coefficient of Variation 14.6 % Immature Granulocyte % (Auto) 1.4 % Immature Granulocyte # (Auto) 0.26 K/uL Sodium Level 140 mmol/L Potassium Level 3.3 mmol/L Chloride Level 105 mmol/L Carbon Dioxide Level 26 mmol/L Anion Gap 9.0 mmol/L Blood Urea Nitrogen 9 mg/dl Creatinine 1.40 mg/dl Est Creatinine Clear Calc Drug Dose 38.7 ml/min Estimated GFR () 53.1 Estimated GFR (Non- 45.8 BUN/Creatinine Ratio 6.4 Random Glucose 162 mg/dl Estimated Average Glucose 140 mg/dl Hemoglobin A1c 6.5 % Calcium Level 7.8 mg/dl Phosphorus Level 1.9 mg/dl Magnesium Level 2.2 mg/dl Total Bilirubin 0.7 mg/dl Aspartate Amino Transf (AST/SGOT) 23 U/L Alanine Aminotransferase (ALT/SGPT) 57 U/L Alkaline Phosphatase 133 U/L Total Protein 5.3 gm/dl Albumin 1.6 gm/dl Globulin 3.7 gm/dl Albumin/Globulin Ratio 0.4 Lipase 173 U/L CHEST ONE VIEW PORTABLE CLINICAL HISTORY: Abnormal breath sounds. Possible pulmonary edema. Wheezing. COMPARISON STUDY: 05/03/2016 FINDINGS: There is persistent elevation of left hemidiaphragm. There is mild mediastinal prominence unchanged the prior study. There are bibasilar opacities, likely atelectatic although an inflammatory process could appear similar. There is blunting of the lateral costophrenic angles. [ IMPRESSION: 1. Bibasilar opacities, likely atelectatic 2. Elevation left hemidiaphragm 3. Blunting of both lateral costophrenic angles
[2016-05-04] MEDS: PANTOprazole SOD 40 MG TAB PO SCH (11:33)
[2016-05-04] MEDS: FLUCONAZOLE / NSS 200 MG in PREMIXED NSS 100 ML IV SCH (14:38)
[2016-05-04 16:36] LABS: BUN/CREATININE RATIO 6.6 (10-20); CALCIUM 8.5 mg/dl (8.5-10.1); CREATININE 1.4 mg/dl (0.60-1.40); PHOSPHORUS 2.1 mg/dl (2.5-4.9); POTASSIUM 3.9 mmol/L (3.5-5.1)
--- NOTE | 2016-05-04 17:11 | Progress Note ---
Subjective Date of Service: May 04, 2016. Subjective this pt is doing well, starting to have return in bowel function Review of Systems Constitutional: + fatigue, + weakness, No chills, No fever Respiratory: No cough, No shortness of breath Cardiac: No chest pain, No edema Abdomen: + pain, No constipation, No diarrhea, No nausea, No vomiting Musculoskeletal: No joint pain, No muscle pain Psychiatric: No anhedonism, No depression symptoms Objective Vital Signs Date Time Temp Pulse Resp B/P Pulse Ox O2 Delivery O2 Flow Rate FiO2 05/04/16 06:06 76 23 149/71 96 Nasal Cannula 3.0 05/04/16 04:00 37.1 75 21 124/79 95 Nasal Cannula 3.0 05/04/16 04:00 93 Nasal Cannula 3.0 05/04/16 02:00 81 22 135/100 92 Nasal Cannula 2.0 05/04/16 01:56 78 22 93 Nasal Cannula 2.0 05/04/16 00:00 37.4 71 25 131/77 93 Nasal Cannula 2.0 05/04/16 00:00 93 Room Air 05/03/16 22:00 83 23 128/73 94 Nasal Cannula 2.0 05/03/16 20:00 37.6 93 24 129/70 92 Room Air 05/03/16 20:00 91 Room Air 05/03/16 19:07 86 20 93 Room Air 05/03/16 18:00 88 23 130/86 93 05/03/16 16:00 92 Room Air 05/03/16 16:00 36.8 84 20 133/60 92 Room Air 05/03/16 14:31 78 20 90 Nasal Cannula 4.0 05/03/16 14:00 78 16 111/71 92 Room Air 05/03/16 12:00 37.0 75 20 115/60 94 Room Air 05/03/16 12:00 93 Room Air 05/03/16 10:00 85 22 115/67 92 Nasal Cannula 2.0 05/03/16 08:52 80 26 94 Nasal Cannula 4.0 05/03/16 08:00 36.8 70 18 148/77 94 Nasal Cannula 2.0 05/03/16 08:00 Nasal Cannula 05/03/16 08:00 94 Nasal Cannula 2.0 Physical Exam General Appearance: WD/WN, + mild distress Neck: supple, no JVD Respiratory/Chest: chest non-tender, lungs clear Cardiovascular: regular rate, rhythm, no murmur Abdomen: normal bowel sounds, soft, + distended, + guarding Extremities: no pedal edema, no calf tenderness Neurologic/Psychiatric: alert, oriented x 3 Laboratory Results Last 24 Hours Test 05/03/16 11:23 05/03/16 16:45 05/03/16 20:36 05/04/16 05:20 Bedside Glucose 168 mg/dl 140 mg/dl 173 mg/dl White Blood Count 18.46 K/uL Red Blood Count 3.50 M/uL Hemoglobin 11.0 g/dL Hematocrit 33.1 % Mean Corpuscular Volume 94.6 fL Mean Corpuscular Hemoglobin 31.4 pg Mean Corpuscular Hemoglobin Concent 33.2 g/dl Platelet Count 196 K/uL Mean Platelet Volume 9.6 fL Neutrophils (%) (Auto) 79.5 % Lymphocytes (%) (Auto) 11.0 % Monocytes (%) (Auto) 7.1 % Eosinophils (%) (Auto) 0.9 % Basophils (%) (Auto) 0.1 % Neutrophils # (Auto) 14.67 K/uL Lymphocytes # (Auto) 2.03 K/uL Monocytes # (Auto) 1.31 K/uL Eosinophils # (Auto) 0.17 K/uL Basophils # (Auto) 0.02 K/uL RDW Standard Deviation 50.2 fL RDW Coefficient of Variation 14.6 % Immature Granulocyte % (Auto) 1.4 % Immature Granulocyte # (Auto) 0.26 K/uL Sodium Level 140 mmol/L Potassium Level 3.3 mmol/L Chloride Level 105 mmol/L Carbon Dioxide Level 26 mmol/L Anion Gap 9.0 mmol/L Blood Urea Nitrogen 9 mg/dl Creatinine 1.40 mg/dl Est Creatinine Clear Calc Drug Dose 38.7 ml/min Estimated GFR () 53.1 Estimated GFR (Non- 45.8 BUN/Creatinine Ratio 6.4 Random Glucose 162 mg/dl Calcium Level 7.8 mg/dl Phosphorus Level 1.9 mg/dl Magnesium Level 2.2 mg/dl Total Bilirubin 0.7 mg/dl Aspartate Amino Transf (AST/SGOT) 23 U/L Alanine Aminotransferase (ALT/SGPT) 57 U/L Alkaline Phosphatase 133 U/L Total Protein 5.3 gm/dl Albumin 1.6 gm/dl Globulin 3.7 gm/dl Albumin/Globulin Ratio 0.4 Lipase 173 U/L Assessment and Plan 86 M transferred from [facility] with acute cholecystitis found at surgery to have more significant injury to gall bladder with necrosis and concern for peritonitis I reviewed CXR 05/04 no acute changes, labs are stable except sl low potassium Cholecystitis, zosyn and post op bowel recovery/diet advancement with surgical oversight, has some flatus History of tobacco abuse, no issues with respiratory failure, counselled re cessation Chronic BPH, did require post op Over[place] will attempt to remove as soon as able DVT prevention will be with heparin Acute blood loss anemia is stable Mild protein malnutrition, will provide supplements once taking po Continued [facility] stay due to: fever, inadequate po fluid intake, inadequate oral pain control, ambulation difficulties, multiple IV medications needed
[2016-05-04] MEDS: CETIRIZINE HCL 10 MG TAB PO SCH (21:13)
[2016-05-04] MEDS: TAMSULOSIN HCL 0.4 MG CAP PO SCH (21:13)
[2016-05-05] VITALS (8 sets, daily range): BP systolic 99–135; BP diastolic 64–78; PULSE 73–91; TEMP 37–37.4; O2SAT 91–95
[2016-05-05] MEDS: ALBUTEROL 0.5% NEB SOLN 2.5 MG/0.5 ML VIAL INH SCH ×4 (02:00→19:53)
[2016-05-05] MEDS: HEPARIN SOD 5000 UNIT/0.5 ML CARP SQ SCH ×3 (05:37→21:44)
--- NOTE | 2016-05-05 06:21 | Surgery Progress Note ---
Surgery Progress Note Date of Service May 05, 2016. Subjective + bowel movement, + flatus, No nausea, No vomiting awake, alert good diuresis with lasix yest Objective Vital Signs: Date Time Temp Pulse Resp B/P Pulse Ox O2 Delivery O2 Flow Rate FiO2 05/05/16 02:00 74 20 92 Room Air 05/04/16 23:40 Nasal Cannula 2.0 05/04/16 23:05 37.0 73 18 135/74 95 Nasal Cannula 2.0 05/04/16 20:14 76 20 96 Nasal Cannula 3.0 05/04/16 15:35 Nasal Cannula 3.0 05/04/16 15:06 36.5 80 17 133/79 93 Nasal Cannula 3.0 05/04/16 11:29 37.3 82 22 135/79 95 Nasal Cannula 3.0 05/04/16 10:25 37.1 83 24 94 3.0 05/04/16 10:00 83 24 160/74 94 Nasal Cannula 3.0 05/04/16 08:00 Nasal Cannula 3.0 05/04/16 08:00 82 20 96 Nasal Cannula 2.0 05/04/16 08:00 Nasal Cannula 05/04/16 08:00 37.1 81 26 140/72 99 Nasal Cannula 3.0 General Appearance: no apparent distress Respiratory/Chest: no respiratory distress Abdomen: non tender, + distended Incision(s): intact, drainage (more serous) Laboratory Results: Results Past 24 Hours Test 05/04/16 11:34 05/04/16 15:27 05/04/16 16:51 05/04/16 21:10 Range/Units Bedside Glucose 177 136 191 70-99 mg/dl Sodium Level 137 136-145 mmol/L Potassium Level 3.9 3.5-5.1 mmol/L Chloride Level 104 98-107 mmol/L Carbon Dioxide Level 24 21-32 mmol/L Anion Gap 9.0 3-11 mmol/L Blood Urea Nitrogen 9 7-18 mg/dl Creatinine 1.40 0.60-1.40 mg/dl Est Creatinine Clear Calc Drug Dose 38.7 ml/min Estimated GFR () 53.1 Estimated GFR (Non- 45.8 BUN/Creatinine Ratio 6.6 10-20 Random Glucose 155 70-99 mg/dl Calcium Level 8.5 8.5-10.1 mg/dl Phosphorus Level 2.1 2.5-4.9 mg/dl Magnesium Level 2.0 1.8-2.4 mg/dl Test 05/05/16 04:44 Range/Units Assessment & Plan 05/05/16- slow progress- loose bowel function, no evidence of ileus. Some wheezing will give dose of lasix this am- cont PT- poor-fair mobility. Shouldn 't be too quick to discharge pt- 3-4 more days- doing better than most pts his age so far 05/04/16- overall doing better than most pts in this situation- try a dose of lasix leave mars, drains. Adv diet, cont atbx, transfer to telemetry unless ICU/med team think otherwise. PT/OT- pt will need extended care but will also be in hosp 5-7 addnl days. Decrease IV 05/03/16- s/p laparoscopic cholecystectomy- posterior wall remains- sloughed entire necrotic mucosa- had cloudy bilious ascites. Drains in place - monitor for bile leak, concern for developing ileus, monitor urine output- may need dose of lasix. Cont ICU mgt 05/02/16- for OR this am- laparoscopic casper, possible cholangiogram 05/04/16- overall doing better than most pts in this situation- try a dose of lasix leave mars, drains. Adv diet, cont atbx, transfer to telemetry unless ICU/med team think otherwise. PT/OT- pt will need extended care but will also be in hosp 5-7 addnl days. Decrease IV 05/03/16- s/p laparoscopic cholecystectomy- posterior wall remains- sloughed entire necrotic mucosa- had cloudy bilious ascites. Drains in place - monitor for bile leak, concern for developing ileus, monitor urine output- may need dose of lasix. Cont ICU mgt 05/02/16- for OR this am- laparoscopic casper, possible cholangiogram
[2016-05-05 06:22] LABS: BASO % 0.1 %; BASO ABS # 0.02 K/uL (0-0.2); COMPLETE YES; EOS % 1.1 %; HEMATOCRIT 32.9 % (42-52); IG% 1.5 %; LYMPH % 11.5 %; LYMPH ABS # 2.48 K/uL (1.2-3.4); MEAN CELL VOLUME 92.7 fL (80-100); MEAN CORPUSCULAR HEMOGLOBIN 31.3 pg (25-34); MEAN CORPUSCULAR HGB CONC 33.7 g/dl (32-36); MEAN PLATELET VOLUME 9.5 fL (7.4-10.4); MONO % 6.4 %; NEUT % 79.4 %; PLATELET COUNT 208 K/uL (130-400); RED BLOOD COUNT 3.55 M/uL (4.7-6.1); WHITE BLOOD COUNT 21.56 K/uL (4.8-10.8)
[2016-05-05] MEDS ORDERED: FUROSEMIDE INJ 20 MG in SYRINGE 0 ML IV ONE (06:30)
[2016-05-05 06:51] LABS: BUN/CREATININE RATIO 7.4 (10-20); CREATININE 1.2 mg/dl (0.60-1.40)
[2016-05-05 06:52] LABS: CALCIUM 8.2 mg/dl (8.5-10.1); MAGNESIUM 2.1 mg/dl (1.8-2.4); PHOSPHORUS 1.7 mg/dl (2.5-4.9); POTASSIUM 3.5 mmol/L (3.5-5.1)
[2016-05-05] MEDS: INSULIN ASPART 100 UNITS/ML 3 ML PEN SC SCH ×4 (08:00→20:35)
[2016-05-05] MEDS: PIPERACILL/TAZOBAC IV 3.375 GM in DEXTROSE 5% 100ML 100 ML IV SCH ×3 (08:47→23:42)
[2016-05-05] MEDS: MONTELUKAST SOD 10 MG TAB PO SCH (08:51)
[2016-05-05] MEDS: DOCUSATE SODIUM/SENNA 50/8.6MG TAB PO SCH ×2 (08:52→20:35)
[2016-05-05] MEDS: PANTOprazole SOD 40 MG TAB PO SCH (08:53)
[2016-05-05] MEDS ORDERED: POTASSIUM PHOS 3 MMOL/1 ML INFUSION IV STA (14:31)
--- NOTE | 2016-05-05 14:33 | Progress Note ---
Subjective Date of Service: May 05, 2016. Subjective this pt is doing well, taking some po and having small bowel movements. Review of Systems Constitutional: + weakness, No chills, No fever Respiratory: No cough, No shortness of breath Cardiac: No chest pain, No edema Abdomen: + pain, No diarrhea, No nausea, No vomiting Male : No dysuria, No hematuria Objective Vital Signs Date Time Temp Pulse Resp B/P Pulse Ox O2 Delivery O2 Flow Rate FiO2 05/05/16 08:47 84 99/64 05/05/16 07:56 Room Air 05/05/16 07:20 81 20 93 Room Air 05/05/16 06:46 37.1 73 18 125/78 95 Room Air 05/05/16 02:00 74 20 92 Room Air 05/04/16 23:40 Nasal Cannula 2.0 05/04/16 23:05 37.0 73 18 135/74 95 Nasal Cannula 2.0 05/04/16 20:14 76 20 96 Nasal Cannula 3.0 05/04/16 15:35 Nasal Cannula 3.0 05/04/16 15:06 36.5 80 17 133/79 93 Nasal Cannula 3.0 Physical Exam General Appearance: WD/WN, + mild distress Neck: supple, no JVD Respiratory/Chest: chest non-tender, lungs clear, normal breath sounds Cardiovascular: regular rate, rhythm, no murmur Abdomen: soft, + guarding, + tenderness Extremities: no pedal edema, no calf tenderness Laboratory Results Last 24 Hours Test 05/04/16 15:27 05/04/16 16:51 05/04/16 21:10 05/05/16 06:10 Sodium Level 137 mmol/L 138 mmol/L Potassium Level 3.9 mmol/L 3.5 mmol/L Chloride Level 104 mmol/L 103 mmol/L Carbon Dioxide Level 24 mmol/L 27 mmol/L Anion Gap 9.0 mmol/L 8.0 mmol/L Blood Urea Nitrogen 9 mg/dl 9 mg/dl Creatinine 1.40 mg/dl 1.20 mg/dl Est Creatinine Clear Calc Drug Dose 38.7 ml/min 45.1 ml/min Estimated GFR () 53.1 64.0 Estimated GFR (Non- 45.8 55.2 BUN/Creatinine Ratio 6.6 7.4 Random Glucose 155 mg/dl 148 mg/dl Calcium Level 8.5 mg/dl 8.2 mg/dl Phosphorus Level 2.1 mg/dl 1.7 mg/dl Magnesium Level 2.0 mg/dl 2.1 mg/dl Bedside Glucose 136 mg/dl 191 mg/dl White Blood Count 21.56 K/uL Red Blood Count 3.55 M/uL Hemoglobin 11.1 g/dL Hematocrit 32.9 % Mean Corpuscular Volume 92.7 fL Mean Corpuscular Hemoglobin 31.3 pg Mean Corpuscular Hemoglobin Concent 33.7 g/dl Platelet Count 208 K/uL Mean Platelet Volume 9.5 fL Neutrophils (%) (Auto) 79.4 % Lymphocytes (%) (Auto) 11.5 % Monocytes (%) (Auto) 6.4 % Eosinophils (%) (Auto) 1.1 % Basophils (%) (Auto) 0.1 % Neutrophils # (Auto) 17.11 K/uL Lymphocytes # (Auto) 2.48 K/uL Monocytes # (Auto) 1.39 K/uL Eosinophils # (Auto) 0.23 K/uL Basophils # (Auto) 0.02 K/uL RDW Standard Deviation 48.9 fL RDW Coefficient of Variation 14.4 % Immature Granulocyte % (Auto) 1.5 % Immature Granulocyte # (Auto) 0.33 K/uL Test 05/05/16 08:22 05/05/16 12:00 Bedside Glucose 141 mg/dl 180 mg/dl Assessment and Plan 86 M transferred from [facility] with acute cholecystitis found at surgery to have more significant injury to gall bladder with necrosis and concern for peritonitis , labs are stable except low phosphorus, will replete 05/05 Cholecystitis, zosyn surgery is hoping to keep in hospital for cautious care History of tobacco abuse, no issues with respiratory failure, counselled re cessation Chronic BPH, did require post op Over[place] will attempt to remove as soon as able DVT prevention will be with heparin Acute blood loss anemia is stable Mild protein malnutrition, will provide supplements once taking po Continued [facility] stay due to: fever, inadequate po fluid intake, inadequate oral pain control, ambulation difficulties, multiple IV medications needed
[2016-05-05] MEDS ORDERED: POTASSIUM PHOSPHATE INJ 21 MMOL in SODIUM CHLORIDE 0.9% 500ML 500 ML IV SCH (15:00)
[2016-05-05] MEDS: FLUCONAZOLE / NSS 200 MG in PREMIXED NSS 100 ML IV SCH (16:18)
[2016-05-05] MEDS: CETIRIZINE HCL 10 MG TAB PO SCH (20:35)
[2016-05-05] MEDS: TAMSULOSIN HCL 0.4 MG CAP PO SCH (20:36)
[2016-05-06] VITALS (7 sets, daily range): BP systolic 125–160; BP diastolic 73–88; PULSE 69–84; TEMP 36.8–37.1; O2SAT 91–96
[2016-05-06] MEDS: ALBUTEROL 0.5% NEB SOLN 2.5 MG/0.5 ML VIAL INH SCH ×3 (02:10→19:48)
[2016-05-06] MEDS: HEPARIN SOD 5000 UNIT/0.5 ML CARP SQ SCH ×3 (05:34→21:51)
--- NOTE | 2016-05-06 06:34 | Surgery Progress Note ---
Surgery Progress Note Date of Service May 06, 2016. Subjective vitals stable, +bms, good urine output and response to lasix triglyc from Drain high (pelvic drain) other drain minimal output Objective Vital Signs: Date Time Temp Pulse Resp B/P Pulse Ox O2 Delivery O2 Flow Rate FiO2 05/06/16 02:10 84 20 91 Room Air 05/05/16 23:34 37.4 84 18 135/77 93 Nasal Cannula 2.0 05/05/16 19:54 82 20 94 Nasal Cannula 2.0 05/05/16 19:20 Nasal Cannula 2.0 05/05/16 15:50 37.0 91 17 132/76 91 Nasal Cannula 2.0 05/05/16 14:34 80 20 93 Room Air 05/05/16 08:47 84 99/64 05/05/16 07:56 Room Air 05/05/16 07:20 81 20 93 Room Air 05/05/16 06:46 37.1 73 18 125/78 95 Room Air General Appearance: no apparent distress Head: atraumatic Respiratory/Chest: + wheezing Abdomen: soft Laboratory Results: Results Past 24 Hours Test 05/05/16 08:22 05/05/16 12:00 05/05/16 15:19 05/05/16 17:00 Range/Units Bedside Glucose 141 180 149 70-99 mg/dl Peritoneal Fluid Triglycerides 171 mg/dl Test 05/05/16 20:33 Range/Units Bedside Glucose 168 70-99 mg/dl Microbiology Results 05/05/16 Gram Stain, Received Pending 05/05/16 Wound Culture, Received Pending Assessment & Plan 05/06/16- 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 Try to chg diet to less lipids- ask tar heater. discuss with radiology re imaging, also discuss with GI. Interesting that pt had very low albumin on adm. Loose bms on Zosyn- ck c diff 05/05/16- slow progress- loose bowel function, no evidence of ileus. Some wheezing will give dose of lasix this am- cont PT- poor-fair mobility. Shouldn 't be too quick to discharge pt- 3-4 more days- doing better than most pts his age so far 05/04/16- overall doing better than most pts in this situation- try a dose of lasix leave mars, drains. Adv diet, cont atbx, transfer to telemetry unless ICU/med team think otherwise. PT/OT- pt will need extended care but will also be in hosp 5-7 addnl days. Decrease IV 05/03/16- s/p laparoscopic cholecystectomy- posterior wall remains- sloughed entire necrotic mucosa- had cloudy bilious ascites. Drains in place - monitor for bile leak, concern for developing ileus, monitor urine output- may need dose of lasix. Cont ICU mgt 05/02/16- for OR this am- laparoscopic casper, possible cholangiogram 05/05/16- slow progress- loose bowel function, no evidence of ileus. Some wheezing will give dose of lasix this am- cont PT- poor-fair mobility. Shouldn 't be too quick to discharge pt- 3-4 more days- doing better than most pts his age so far 05/04/16- overall doing better than most pts in this situation- try a dose of lasix leave mars, drains. Adv diet, cont atbx, transfer to telemetry unless ICU/med team think otherwise. PT/OT- pt will need extended care but will also be in hosp 5-7 addnl days. Decrease IV 05/03/16- s/p laparoscopic cholecystectomy- posterior wall remains- sloughed entire necrotic mucosa- had cloudy bilious ascites. Drains in place - monitor for bile leak, concern for developing ileus, monitor urine output- may need dose of lasix. Cont ICU mgt 05/02/16- for OR this am- laparoscopic casper, possible cholangiogram
[2016-05-06] MEDS: PIPERACILL/TAZOBAC IV 3.375 GM in DEXTROSE 5% 100ML 100 ML IV SCH ×3 (07:56→23:35)
[2016-05-06] MEDS: INSULIN ASPART 100 UNITS/ML 3 ML PEN SC SCH ×4 (08:00→20:53)
[2016-05-06] MEDS: DOCUSATE SODIUM/SENNA 50/8.6MG TAB PO SCH ×2 (09:31→20:52)
[2016-05-06] MEDS: PANTOprazole SOD 40 MG TAB PO SCH (09:32)
[2016-05-06] MEDS: MONTELUKAST SOD 10 MG TAB PO SCH (09:32)
[2016-05-06 10:50] LABS: ALB/GLOB RATIO 0.5 (0.9-2); BUN/CREATININE RATIO 8.5 (10-20); CALCIUM 8.9 mg/dl (8.5-10.1); CREATININE 1.3 mg/dl (0.60-1.40); POTASSIUM 3.7 mmol/L (3.5-5.1)
[2016-05-06] MEDS ORDERED: OPTIRAY 320 IV PRN (11:15)
--- NOTE | 2016-05-06 14:45 | Gastrointestinal Consultation ---
Gastrointestinal Consultation Date of Consultation: May 06, 2016 Attending Physician: Sanford Miller Consulting Physician: Enrique Jones Reason for Consultation: Possible chylous ascites History of Present Illness Patient is a 86 year old male w PMHx of HTN, BPH presented as a transfer from [facility] for further management of acute cholecystitis, pancreatitis. He had been c/o LLQ abd area x 2-3 days. Denies any n/v, diarrhea. He went to [facility] and labs showed WBC of 22K. CT abd/pelvis w acute cholecystitis , and pancreatitis, no diverticulosis. His LFTs were mildly elevated, Lipase in 200s. He had abd u/s at admission which showed distended gallbladder, w gallstones, CBD 1.1cm. Pancreas not seen due to overlaying bowel. He underwent lap cholecystectomy by Dr. Miller on 05/02 - gallbladder noted to be necrotic and gangrenous. 2 JAMAAL drain placed. This AM GI consulted as one of the JAMAAL drains started putting out milky fluid. 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 Triglyceride from the JAMAAL fluid came back at 171. Pt overall feels well, denies much abd pain since having more regular BMs. He is tolerating regular diet w/o n/v. He denies any hx of pancreatitis. Denies ETOH or tobacco abuses, or family hx of autoimmune pancreatitis. Lipase today up at 400s. Past Medical/Surgical History Past Medical History: See above, dyslipidemia, LLE DVT Past Surgical History: Lap cholecystectomy Family History Non contributory Social History Smoking Status: Former Smoker Alcohol Use: none Allergies Coded Allergies: Allopurinol (Verified Allergy, Mild, PT DOESN'T KNOW, 05/01/16) unknown Fexofenadine (Verified Allergy, Mild, RASH, 05/01/16) unknown Sulfa Antibiotics (Verified Allergy, Unknown, RASH, 05/01/16) unknown Current Medications Home Meds and Scripts Medications Dose Route/Sig Max Daily Dose Days Date Category Aspirin Chewable (Aspirin) 81 Mg Chew 81 Mg PO DAILY 05/01/16 Reported Mobic (Meloxicam) 7.5 Mg Tab 7.5 Mg PO DAILY 05/01/16 Reported Tamsulosin HCl 0.4 Mg Cap 0.4 Mg PO QPM 05/01/16 Reported Tenormin (Atenolol) 25 Mg Tab 25 Mg PO DAILY 05/01/16 Reported Montelukast Sodium 10 Mg Tab 1 Tab PO DAILY 30 05/01/16 Reported Cranberry (Cranberry-Vitamin C-Vitamin E) 1 Cap Cap 84 Mg PO DAILY 05/01/16 Reported [place]-3 (Fish Oil) 1 Ea Cap 1 Cap PO BID 05/01/16 Reported Review of Systems Constitutional: No chills, No fever Respiratory: No cough, No shortness of breath Cardiac: No chest pain Abdomen: No nausea, No pain, No vomiting Physical Exam Date Time Temp Pulse Resp B/P Pulse Ox O2 Delivery O2 Flow Rate FiO2 05/06/16 07:23 79 20 96 Nasal Cannula 2.0 05/06/16 02:10 84 20 91 Room Air 05/05/16 23:34 37.4 84 18 135/77 93 Nasal Cannula 2.0 05/05/16 19:54 82 20 94 Nasal Cannula 2.0 05/05/16 19:20 Nasal Cannula 2.0 05/05/16 15:50 37.0 91 17 132/76 91 Nasal Cannula 2.0 05/05/16 14:34 80 20 93 Room Air General Appearance: WD/WN, no apparent distress Eyes: normal inspection, PERRL, EOMI Neck: supple, no JVD, trachea midline Respiratory/Chest: no respiratory distress, no accessory muscle use, + decreased breath sounds Cardiovascular: regular rate, rhythm, no gallop, no murmur Abdomen: normal bowel sounds, non tender, + distended, + pertinent finding (2 JAMAAL drains around RUQ area. Medially positioned drain w milky white fluid; Laterally positioned drain w scan bilious appearing drainage) Extremities: normal inspection, no pedal edema, no calf tenderness Neurologic/Psych: alert, normal mood/affect, oriented x 3 Skin: normal color, no jaundice, no rash Laboratory Results Last 24 Hours Test 05/05/16 15:19 05/05/16 17:00 05/05/16 20:33 05/06/16 08:22 Peritoneal Fluid Triglycerides 171 mg/dl Bedside Glucose 149 mg/dl 168 mg/dl 144 mg/dl Test 05/06/16 09:36 Sodium Level 138 mmol/L Potassium Level 3.7 mmol/L Chloride Level 102 mmol/L Carbon Dioxide Level 26 mmol/L Anion Gap 10.0 mmol/L Blood Urea Nitrogen 11 mg/dl Creatinine 1.30 mg/dl Est Creatinine Clear Calc Drug Dose 41.7 ml/min Estimated GFR () 58.1 Estimated GFR (Non- 50.1 BUN/Creatinine Ratio 8.5 Random Glucose 141 mg/dl Calcium Level 8.9 mg/dl Total Bilirubin 0.6 mg/dl Direct Bilirubin 0.2 mg/dl Aspartate Amino Transf (AST/SGOT) 40 U/L Alanine Aminotransferase (ALT/SGPT) 60 U/L Alkaline Phosphatase 153 U/L Total Protein 6.1 gm/dl Albumin 1.9 gm/dl Globulin 4.2 gm/dl Albumin/Globulin Ratio 0.5 Lipase 438 U/L Impression Patient is a 86 year old male s/p lap cholecystectomy on 05/02 (necrotic and gangrenous gallbladder) currently found to have milky white fluid in one of his JAMAAL drains ? chylous ascites. Triglyceride fluid from drain 171. Lipase between 200s-400s. Previous mildly elevated LFTs normalizing. Plan - Obtain repeat CT abd/pelvis w contrast to r/o pancreatitis - Check JAMAAL fluid Amylase - Start Octreotide 50mcg subq q8hrs to help decrease fluid secretion ATTESTATION: I have performed a history and physical examination of this patient and reviewed the electronic record. Specifically, on physical examination he does not appear to be toxic and had minimal abdominal tenderness. I have discussed the case with CATIE Myers. The above note reflects my findings, conclusions, and recommendations. Enrique Jones MD
--- NOTE | 2016-05-06 15:17 | DIAGNOSTIC IMAGING REPORT ---
CT SCAN OF THE ABDOMEN AND PELVIS WITH IV CONTRAST CLINICAL HISTORY: Pancreatitis. COMPARISON STUDY: Abdominal CT and ultrasound dated 05/01/2016 TECHNIQUE: Following the IV administration of 92 cc of Optiray 320, CT scan of the abdomen and pelvis is performed from the lung bases to the proximal femora. Images are reviewed in the axial, sagittal, and coronal planes. IV contrast was administered without complication. Automated dose control exposure was utilized. The examination is significant degraded by motion artifact. CT DOSE: 1234.09 mGy.cm FINDINGS: Lung bases: The heart is normal in size and without pericardial effusion. There are coronary artery calcifications. There are small pleural effusions with bibasilar consolidation. Liver: The contrast-enhanced liver is normal in size, contour, and attenuation. There is no intrahepatic biliary ductal dilatation. The hepatic veins and portal veins are patent. Gallbladder: The gallbladder is surgically absent. Nonspecific fluid and stranding in the gallbladder fossa is likely related to recent surgery. Spleen: Normal in size and attenuation. Pancreas: There is marked peripancreatic edema an inflammatory stranding as well as peripancreatic fluid. The appearance is consistent with severe acute pancreatitis. The degree of peripancreatic inflammation appears increased from 05/01/2016. There are foci of diminished perfusion involving the pancreatic head, neck, and proximal body. The appearance is highly concerning for necrotizing pancreatitis. No organized fluid collection is seen to suggest pseudocyst. The splenic vein is patent. Adrenal glands: Unremarkable. Kidneys: The contrast enhanced kidneys are atrophic and without hydronephrosis. Scattered subcentimeter cortical hypodensities likely represent cysts but are too small for definitive characterization. The kidneys enhance symmetrically. Abdominal vasculature: The abdominal aorta is normal in course and caliber noting moderate to advanced atherosclerotic calcification. Bowel: The small bowel and colon are normal in course and caliber. Wall thickening is noted in the duodenum, likely related to adjacent pancreatitis. A small duodenal diverticulum is noted. There is moderate colonic diverticulosis without CT evidence of acute diverticulitis. Liquid stool is noted in the right colon. The appendix is not clearly visualized. Peritoneum: 2 surgical drains are in place from a right lower quadrant approach. One drain is coiled below the liver and traverses the gallbladder fossa. The tip of the second drain is located in the mid pelvis. No intraperitoneal free air is identified. Lymphadenopathy: None. Pelvic viscera: The prostate gland is mildly enlarged and heterogeneous. The bladder is normal as imaged. There are bilateral fat-containing inguinal hernias. Skeletal structures: Skeletal structures are osteopenic. There is moderate to advanced lumbar sacral spondylosis. Scoliosis is observed. No lytic or blastic lesions are seen. IMPRESSION: 1. Motion degraded examination. 2. There are postoperative changes from interval cholecystectomy with [address] as detailed above. No organized fluid collection is seen to suggest abscess. Fluid and stranding in the gallbladder fossa are nonspecific and likely related to recent surgery. 3. Findings are consistent with severe acute pancreatitis as above. The degree of peripancreatic inflammation appears to have worsened as compared to 05/01/2016. 4. There are foci of heterogeneously diminished perfusion involving the pancreatic head, neck, and proximal body. The appearance is concerning for necrotizing pancreatitis. No organized fluid collection is seen to suggest pseudocyst. The splenic vein is patent. 5. Duodenal wall thickening is likely related to adjacent pancreatitis. 6. Small pleural effusions and bibasilar consolidation. 7. Additional changes as above. Electronically signed by: Augustin Rangel M.D. 05/06/2016 3:16 PM Dictated Date/Time: 05/06/2016 3:05 PM
[2016-05-06] MEDS: FLUCONAZOLE / NSS 200 MG in PREMIXED NSS 100 ML IV SCH (15:56)
[2016-05-06] MEDS: OCTREOTIDE ACETATE 100 MCG/ML VIAL SQ SCH ×2 (16:01→21:52)
--- NOTE | 2016-05-06 17:52 | Progress Note ---
Subjective Date of Service: May 06, 2016. Subjective pt states he is feeling ok, usually wheezing in the morning, surgery is concerned given his gangrene of the gall bladder. Review of Systems Constitutional: + weakness, No chills, No fever Respiratory: + wheezing (only in the am), No cough, No sputum Cardiac: No chest pain, No orthopnea Abdomen: + pain, No diarrhea, No nausea Male : No dysuria, No urinary frequency Psychiatric: No anhedonism, No depression symptoms Objective Vital Signs Date Time Temp Pulse Resp B/P Pulse Ox O2 Delivery O2 Flow Rate FiO2 05/06/16 16:00 Room Air 05/06/16 15:34 80 20 95 Room Air 05/06/16 15:17 37.1 74 18 145/84 95 Room Air 05/06/16 09:45 Nasal Cannula 2.0 05/06/16 07:23 79 20 96 Nasal Cannula 2.0 05/06/16 02:10 84 20 91 Room Air 05/05/16 23:34 37.4 84 18 135/77 93 Nasal Cannula 2.0 05/05/16 19:54 82 20 94 Nasal Cannula 2.0 05/05/16 19:20 Nasal Cannula 2.0 Physical Exam General Appearance: WD/WN, + mild distress Neck: supple, no JVD Cardiovascular: regular rate, rhythm, no murmur Abdomen: normal bowel sounds, + guarding, + tenderness Extremities: normal range of motion, non-tender, no pedal edema Laboratory Results Last 24 Hours Test 05/05/16 20:33 05/06/16 08:22 05/06/16 09:36 05/06/16 12:02 Bedside Glucose 168 mg/dl 144 mg/dl 148 mg/dl Sodium Level 138 mmol/L Potassium Level 3.7 mmol/L Chloride Level 102 mmol/L Carbon Dioxide Level 26 mmol/L Anion Gap 10.0 mmol/L Blood Urea Nitrogen 11 mg/dl Creatinine 1.30 mg/dl Est Creatinine Clear Calc Drug Dose 41.7 ml/min Estimated GFR () 58.1 Estimated GFR (Non- 50.1 BUN/Creatinine Ratio 8.5 Random Glucose 141 mg/dl Calcium Level 8.9 mg/dl Total Bilirubin 0.6 mg/dl Direct Bilirubin 0.2 mg/dl Aspartate Amino Transf (AST/SGOT) 40 U/L Alanine Aminotransferase (ALT/SGPT) 60 U/L Alkaline Phosphatase 153 U/L Total Protein 6.1 gm/dl Albumin 1.9 gm/dl Globulin 4.2 gm/dl Albumin/Globulin Ratio 0.5 Lipase 438 U/L Test 05/06/16 17:04 Bedside Glucose 128 mg/dl Assessment and Plan 86 M transferred from [facility] with acute cholecystitis found at surgery to have more significant injury to gall bladder with necrosis and concern for peritonitis review of LFT shows are normalizing but lipase is sl elevated,CT ordered and pending Cholecystitis, zosyn surgery and gi medicine are following, increased triglycerides in fluid octreotide is started History of tobacco abuse, no issues with respiratory failure, counselled re cessation,wheezing maybe undiagnosed copd try some duonebs Chronic BPH, did require post op [place] remove and check post voids DVT prevention will be with heparin Acute blood loss anemia has been stable Mild protein malnutrition, will provide supplements once taking po Continued [facility] stay due to: fever, inadequate po fluid intake, inadequate oral pain control, ambulation difficulties, multiple IV medications needed
[2016-05-06] MEDS: CETIRIZINE HCL 10 MG TAB PO SCH (20:52)
[2016-05-06] MEDS: TAMSULOSIN HCL 0.4 MG CAP PO SCH (20:52)
[2016-05-07] VITALS (7 sets, daily range): BP systolic 128–145; BP diastolic 67–78; PULSE 62–77; TEMP 36.9–37.1; O2SAT 90–98
[2016-05-07] MEDS: ALBUTEROL 0.5% NEB SOLN 2.5 MG/0.5 ML VIAL INH SCH ×4 (02:22→19:50)
[2016-05-07] MEDS: OCTREOTIDE ACETATE 100 MCG/ML VIAL SQ SCH ×3 (05:44→22:14)
[2016-05-07] MEDS: HEPARIN SOD 5000 UNIT/0.5 ML CARP SQ SCH ×3 (05:47→21:33)
--- NOTE | 2016-05-07 05:54 | Surgery Progress Note ---
Surgery Progress Note Date of Service May 07, 2016. Subjective + bowel movement, + feeling well, No nausea, No vomiting breathing much better Objective Vital Signs: Date Time Temp Pulse Resp B/P Pulse Ox O2 Delivery O2 Flow Rate FiO2 05/07/16 02:22 70 20 90 Room Air 05/06/16 23:35 69 125/73 05/06/16 22:54 36.8 69 18 160/88 92 Room Air 05/06/16 19:49 74 20 92 Room Air 05/06/16 19:20 Room Air 05/06/16 16:00 Room Air 05/06/16 15:34 80 20 95 Room Air 05/06/16 15:17 37.1 74 18 145/84 95 Room Air 05/06/16 09:45 Nasal Cannula 2.0 05/06/16 07:23 79 20 96 Nasal Cannula 2.0 Physical Exam: JAMAAL drainage (almost looks more serous- amylase normal ) General Appearance: no apparent distress Respiratory/Chest: no respiratory distress Abdomen: normal bowel sounds, non tender, + distended (baseline) Incision(s): intact Laboratory Results: Results Past 24 Hours Test 05/06/16 08:22 05/06/16 09:36 05/06/16 12:02 05/06/16 17:04 Range/Units Bedside Glucose 144 148 128 70-99 mg/dl Sodium Level 138 136-145 mmol/L Potassium Level 3.7 3.5-5.1 mmol/L Chloride Level 102 98-107 mmol/L Carbon Dioxide Level 26 21-32 mmol/L Anion Gap 10.0 3-11 mmol/L Blood Urea Nitrogen 11 7-18 mg/dl Creatinine 1.30 0.60-1.40 mg/dl Est Creatinine Clear Calc Drug Dose 41.7 ml/min Estimated GFR () 58.1 Estimated GFR (Non- 50.1 BUN/Creatinine Ratio 8.5 10-20 Random Glucose 141 70-99 mg/dl Calcium Level 8.9 8.5-10.1 mg/dl Total Bilirubin 0.6 0.2-1 mg/dl Direct Bilirubin 0.2 0-0.2 mg/dl Aspartate Amino Transf (AST/SGOT) 40 15-37 U/L Alanine Aminotransferase (ALT/SGPT) 60 12-78 U/L Alkaline Phosphatase 153 45-117 U/L Total Protein 6.1 6.4-8.2 gm/dl Albumin 1.9 3.4-5.0 gm/dl Globulin 4.2 2.5-4.0 gm/dl Albumin/Globulin Ratio 0.5 0.9-2 Lipase 438 73-393 U/L Test 05/06/16 17:27 05/06/16 20:24 05/07/16 04:44 05/07/16 05:15 Range/Units Peritoneal Fluid Amylase 26 U/L Bedside Glucose 194 70-99 mg/dl Microbiology Results 05/07/16 C.difficile Toxin B Gene (PCR) - Final, Complete No C. difficile toxin B gene detected Assessment & Plan 05/07/16- overall doing well- CT shows severe pancreatic inflammation and possible necrosis- has mass effect in mid , upper abd. 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 Leave drains until next week, cont IV atbx for now. Dr Osei covering over weekend 05/06/16- 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 Try to chg diet to less lipids- ask head insulation board saw operator. discuss with radiology re imaging, also discuss with GI. Interesting that pt had very low albumin on adm. Loose bms on Zosyn- ck c diff 05/05/16- slow progress- loose bowel function, no evidence of ileus. Some wheezing will give dose of lasix this am- cont PT- poor-fair mobility. Shouldn 't be too quick to discharge pt- 3-4 more days- doing better than most pts his age so far 05/04/16- overall doing better than most pts in this situation- try a dose of lasix leave mars, drains. Adv diet, cont atbx, transfer to telemetry unless ICU/med team think otherwise. PT/OT- pt will need extended care but will also be in hosp 5-7 addnl days. Decrease IV 05/03/16- s/p laparoscopic cholecystectomy- posterior wall remains- sloughed entire necrotic mucosa- had cloudy bilious ascites. Drains in place - monitor for bile leak, concern for developing ileus, monitor urine output- may need dose of lasix. Cont ICU mgt 05/02/16- for OR this am- laparoscopic casper, possible cholangiogram 05/06/16- 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 Try to chg diet to less lipids- ask head insulation board saw operator. discuss with radiology re imaging, also discuss with GI. Interesting that pt had very low albumin on adm. Loose bms on Zosyn- ck c diff 05/05/16- slow progress- loose bowel function, no evidence of ileus. Some wheezing will give dose of lasix this am- cont PT- poor-fair mobility. Shouldn 't be too quick to discharge pt- 3-4 more days- doing better than most pts his age so far 05/04/16- overall doing better than most pts in this situation- try a dose of lasix leave mars, drains. Adv diet, cont atbx, transfer to telemetry unless ICU/med team think otherwise. PT/OT- pt will need extended care but will also be in hosp 5-7 addnl days. Decrease IV 05/03/16- s/p laparoscopic cholecystectomy- posterior wall remains- sloughed entire necrotic mucosa- had cloudy bilious ascites. Drains in place - monitor for bile leak, concern for developing ileus, monitor urine output- may need dose of lasix. Cont ICU mgt 05/02/16- for OR this am- laparoscopic casper, possible cholangiogram
[2016-05-07 06:35] LABS: HEMATOCRIT 31.9 % (42-52); MEAN CELL VOLUME 91.1 fL (80-100); MEAN CORPUSCULAR HEMOGLOBIN 31.1 pg (25-34); MEAN CORPUSCULAR HGB CONC 34.2 g/dl (32-36); MEAN PLATELET VOLUME 9.6 fL (7.4-10.4); PLATELET COUNT 236 K/uL (130-400)
[2016-05-07 07:05] LABS: C-REACTIVE PROTEIN 15.9 mg/dl (0-0.29); CHOLESTEROL/HDL RATIO 5.9; PHOSPHORUS 2.5 mg/dl (2.5-4.9)
[2016-05-07] MEDS: PIPERACILL/TAZOBAC IV 3.375 GM in DEXTROSE 5% 100ML 100 ML IV SCH ×3 (08:17→23:48)
[2016-05-07] MEDS: DOCUSATE SODIUM/SENNA 50/8.6MG TAB PO SCH ×2 (08:33→21:24)
[2016-05-07] MEDS: PANTOprazole SOD 40 MG TAB PO SCH (08:35)
[2016-05-07] MEDS: MONTELUKAST SOD 10 MG TAB PO SCH (08:36)
[2016-05-07] MEDS: INSULIN ASPART 100 UNITS/ML 3 ML PEN SC SCH ×4 (08:55→21:00)
--- NOTE | 2016-05-07 12:54 | Gastroenterology Progress Note ---
Progress Note Date of Service: May 07, 2016 Subjective Pt evaluation today including: conversation w/ patient, physical exam, chart review, lab review, review of studies, review of inpatient medication list Pt continues to feel well, denies any abd pain, n/v. Pt been afebrile overnight. CT abd/pelvis showed worsening pancreatitis suspicious for necrotizing pancreatitis. WBC elevated still at 22. JAMAAL fluid Amylase pending. Review of Systems Constitutional: No chills, No fever Respiratory: No cough, No shortness of breath Cardiac: No chest pain Abdomen: No nausea, No pain, No vomiting Medications Current Inpatient Medications Medications (Trade) Dose Ordered Sig/Adithya Route Start Time Stop Time Status Last Admin Dose Admin Acetaminophen (Tylenol Tab) 650 mg Q4H PRN PO 05/01/16 16:15 05/31/16 16:14 Al Hydrox/Mg Hydrox/Simethicone (Maalox Max Susp) 15 ml Q4H PRN PO 05/01/16 16:15 05/31/16 16:14 Magnesium Hydroxide (Milk Of Magnesia Susp) 30 ml Q6H PRN PO 05/01/16 16:15 05/31/16 16:14 Polyethylene (Miralax Powder Packet) 17 gm DAILY PRN PO 05/01/16 16:15 05/31/16 16:14 Ondansetron HCl 4 mg 4 mg Q6H PRN IV 05/01/16 16:15 05/31/16 16:14 05/02/16 19:43 4 MG Piperacillin Sod/ Tazobactam Sod/ Dextrose (Zosyn Iv/D5 100ml) 115 ml @ 28.75 mls/ hr Q8@0000,0800,1600 IV 05/02/16 00:00 05/14/16 23:59 05/07/16 08:17 28.75 MLS/HR Piperacillin Sod/ Tazobactam Sod (Consult) 1 ea UD PRN N/A 05/01/16 16:30 05/31/16 16:29 Atenolol (Tenormin Tab) 25 mg DAILY PO 05/02/16 09:00 06/01/16 08:59 05/07/16 08:38 25 MG Montelukast Sodium (Singulair Tab) 10 mg DAILY PO 05/02/16 09:00 06/01/16 08:59 05/07/16 08:36 10 MG Tamsulosin HCl (Flomax Cap) 0.4 mg QPM PO 05/01/16 21:00 05/31/16 20:59 05/06/16 20:52 0.4 MG Acetaminophen/ Hydrocodone Bitart ([place] 5/325 Tab) 1 tab Q4 PRN PO 05/02/16 11:30 05/16/16 11:29 Acetaminophen/ Hydrocodone Bitart ([place] 5/325 Tab) 2 tab Q4 PRN PO 05/02/16 11:30 05/16/16 11:29 Senna/Docusate Sodium (Senokot S Tab) 1 tab BID PO 05/02/16 21:00 06/01/16 20:59 05/07/16 08:33 1 TAB Cetirizine HCl (zyrTEC TAB) 5 mg HS PO 05/02/16 21:00 06/01/16 20:59 05/06/16 20:52 5 MG Albuterol/ Ipratropium (Duoneb) 3 ml Q4R PRN INH 05/02/16 18:00 06/01/16 17:59 05/02/16 20:15 3 ML Heparin Sodium (Porcine) (Heparin Sq 5000 Unit/0.5ml) 5,000 unit Q8H SQ 05/02/16 22:00 06/01/16 21:59 05/07/16 05:47 5,000 UNIT Albuterol Sulfate 2.5 mg 2.5 mg Q6R INH 05/03/16 09:00 06/02/16 08:59 05/07/16 07:17 2.5 MG Fluconazole/ Sodium Chloride/ Prmx (Diflucan IV/ Premixed Nss) 100 ml @ 100 mls/hr DAILY@1500 IV 05/03/16 15:00 06/02/16 14:59 05/06/16 15:56 100 MLS/HR Insulin Aspart (novoLOG ASPART) SLIDING SCALE ACHS SC 05/03/16 11:00 06/02/16 10:59 05/07/16 08:55 1 UNITS Pantoprazole Sodium (Protonix Tab) 40 mg QAM PO 05/04/16 11:00 06/03/16 10:59 05/07/16 08:35 40 MG Ioversol (Optiray 320) 125 ml UD PRN IV 05/06/16 11:15 05/10/16 11:14 Octreotide Acetate (Sandostatin Inj) 50 mcg Q8H SQ 05/06/16 14:15 06/05/16 14:14 05/07/16 05:44 50 MCG Objective Vital Signs Date Time Temp Pulse Resp B/P Pulse Ox O2 Delivery O2 Flow Rate FiO2 05/07/16 07:35 Room Air 05/07/16 07:26 37.1 70 19 132/78 90 Room Air 05/07/16 07:18 70 20 93 Room Air 05/07/16 02:22 70 20 90 Room Air 05/06/16 23:35 69 125/73 05/06/16 22:54 36.8 69 18 160/88 92 Room Air 05/06/16 19:49 74 20 92 Room Air 05/06/16 19:20 Room Air 05/06/16 16:00 Room Air 05/06/16 15:34 80 20 95 Room Air 05/06/16 15:17 37.1 74 18 145/84 95 Room Air Physical Exam General Appearance: WD/WN, no apparent distress Eyes: normal inspection, PERRL, EOMI Neck: supple, no JVD, trachea midline Respiratory/Chest: normal breath sounds, no respiratory distress, no accessory muscle use Cardiovascular: regular rate, rhythm, no JVD, no murmur Abdomen: normal bowel sounds, non tender, soft, + pertinent finding (JAMAAL drain x 1 w whitish fluid ) Neurologic/Psych: alert, normal mood/affect, oriented x 3 Skin: normal color, no jaundice, no rash Laboratory Results Last 24 Hours Test 05/06/16 17:04 05/06/16 17:27 05/06/16 17:37 05/06/16 20:24 Bedside Glucose 128 mg/dl 194 mg/dl Peritoneal Fluid Amylase U/L Test 05/07/16 06:05 05/07/16 07:53 05/07/16 12:04 White Blood Count 22.70 K/uL Red Blood Count 3.50 M/uL Hemoglobin 10.9 g/dL Hematocrit 31.9 % Mean Corpuscular Volume 91.1 fL Mean Corpuscular Hemoglobin 31.1 pg Mean Corpuscular Hemoglobin Concent 34.2 g/dl RDW Standard Deviation 47.5 fL RDW Coefficient of Variation 14.5 % Platelet Count 236 K/uL Mean Platelet Volume 9.6 fL Nucleated RBC Absolute Count (auto) 0.03 K/uL Nucleated Red Blood Cells % 0.1 % Phosphorus Level 2.5 mg/dl C-Reactive Protein 15.90 mg/dl Triglycerides Level 176 mg/dl Cholesterol Level 101 mg/dl HDL Cholesterol 17 mg/dl LDL Cholesterol, Calculated 49 mg/dl VLDL Cholesterol, Calculated 35 mg/dl Cholesterol/HDL Ratio 5.9 Bedside Glucose 184 mg/dl 154 mg/dl Assessment and Plan Patient is a 86 year old male s/p lap cholecystectomy on 05/02 (necrotic and gangrenous gallbladder) currently found to have milky white fluid in one of his JAMAAL drains ? chylous ascites. Triglyceride fluid from drain 171. Lipase between 200s-400s. Previous mildly elevated LFTs normalizing. Repeat CT abd/pelvis showed worsening pancreatitis suspicious for necrotizing pancreatitis w/o fluid collection. His WBC is still elevated at 22K, likely related to the evolving pancreatitis. Symptomatically he's well - afebrile, no abd pain, n/v, tolerating low fat diet. Plans - F/U JAMAAL fluid Amylase - Continue Octreotide 50mcg subq q8hrs to help decrease fluid secretion ; broad spectrum antibx - Ok to continue diabetic, low fat diet. - Monitor pt's clinical course closely. ATTESTATION: I have performed a history and physical examination of this patient and reviewed the electronic record. Specifically, on physical examination the patient is comforable and there is minimal abdominal tenderness. I have discussed the case with CATIE Myers. The above note reflects my findings , conclusions, and recommendations. Enrique Jones MD
[2016-05-07] MEDS: FLUCONAZOLE / NSS 200 MG in PREMIXED NSS 100 ML IV SCH (14:30)
--- NOTE | 2016-05-07 15:42 | Progress Note ---
Subjective Date of Service: May 07, 2016. Subjective this pt looks much better that hsi labs suggest, still with greenish discharge from abdominal drain Review of Systems Constitutional: + weakness, No chills, No fever Respiratory: No cough, No shortness of breath, No sputum, No wheezing Cardiac: No chest pain, No orthopnea Abdomen: + pain, No diarrhea, No nausea, No vomiting Neurologic: No memory loss, No weakness Objective Vital Signs Date Time Temp Pulse Resp B/P Pulse Ox O2 Delivery O2 Flow Rate FiO2 05/07/16 07:26 37.1 70 19 132/78 90 Room Air 05/07/16 07:18 70 20 93 Room Air 05/07/16 02:22 70 20 90 Room Air 05/06/16 23:35 69 125/73 05/06/16 22:54 36.8 69 18 160/88 92 Room Air 05/06/16 19:49 74 20 92 Room Air 05/06/16 19:20 Room Air 05/06/16 16:00 Room Air 05/06/16 15:34 80 20 95 Room Air 05/06/16 15:17 37.1 74 18 145/84 95 Room Air 05/06/16 09:45 Nasal Cannula 2.0 Physical Exam General Appearance: WD/WN, + mild distress Neck: supple, no JVD Respiratory/Chest: chest non-tender, lungs clear Cardiovascular: regular rate, rhythm, no murmur Abdomen: soft, + guarding, + tenderness Neurologic/Psychiatric: alert, oriented x 3 Laboratory Results Last 24 Hours Test 05/06/16 08:22 05/06/16 09:36 05/06/16 12:02 05/06/16 17:04 Bedside Glucose 144 mg/dl 148 mg/dl 128 mg/dl Sodium Level 138 mmol/L Potassium Level 3.7 mmol/L Chloride Level 102 mmol/L Carbon Dioxide Level 26 mmol/L Anion Gap 10.0 mmol/L Blood Urea Nitrogen 11 mg/dl Creatinine 1.30 mg/dl Est Creatinine Clear Calc Drug Dose 41.7 ml/min Estimated GFR () 58.1 Estimated GFR (Non- 50.1 BUN/Creatinine Ratio 8.5 Random Glucose 141 mg/dl Calcium Level 8.9 mg/dl Total Bilirubin 0.6 mg/dl Direct Bilirubin 0.2 mg/dl Aspartate Amino Transf (AST/SGOT) 40 U/L Alanine Aminotransferase (ALT/SGPT) 60 U/L Alkaline Phosphatase 153 U/L Total Protein 6.1 gm/dl Albumin 1.9 gm/dl Globulin 4.2 gm/dl Albumin/Globulin Ratio 0.5 Lipase 438 U/L Test 05/06/16 17:27 05/06/16 20:24 05/07/16 06:05 Peritoneal Fluid Amylase 26 U/L Bedside Glucose 194 mg/dl White Blood Count 22.70 K/uL Red Blood Count 3.50 M/uL Hemoglobin 10.9 g/dL Hematocrit 31.9 % Mean Corpuscular Volume 91.1 fL Mean Corpuscular Hemoglobin 31.1 pg Mean Corpuscular Hemoglobin Concent 34.2 g/dl RDW Standard Deviation 47.5 fL RDW Coefficient of Variation 14.5 % Platelet Count 236 K/uL Mean Platelet Volume 9.6 fL Nucleated RBC Absolute Count (auto) 0.03 K/uL Nucleated Red Blood Cells % 0.1 % Phosphorus Level 2.5 mg/dl C-Reactive Protein 15.90 mg/dl Triglycerides Level 176 mg/dl Cholesterol Level 101 mg/dl HDL Cholesterol 17 mg/dl LDL Cholesterol, Calculated 49 mg/dl VLDL Cholesterol, Calculated 35 mg/dl Cholesterol/HDL Ratio 5.9 Assessment and Plan 86 M transferred from [place] [facility] with acute cholecystitis found at surgery to have more significant injury to gall bladder with necrosis and concern for peritonitis review of LFT shows are normalizing but lipase is sl elevated,CT shows pancreatitis, GI med is following and I discussed case with them 05/07 recommend continued gentle feeding unless clinically decompensates Cholecystitis, zosyn octreotide is started to try to reduce secretions History of tobacco abuse, no issues with respiratory failure, counselled re cessation,wheezing resolved duonebs Chronic BPH, did require post op Overton removed and prn straight cath DVT prevention will be with heparin Acute blood loss anemia has been stable Mild protein malnutrition, will provide supplements once taking po Continued [facility] stay due to: fever, inadequate po fluid intake, inadequate oral pain control, ambulation difficulties, multiple IV medications needed
[2016-05-07] MEDS: CETIRIZINE HCL 10 MG TAB PO SCH (21:24)
[2016-05-07] MEDS: TAMSULOSIN HCL 0.4 MG CAP PO SCH (21:25)
[2016-05-08] VITALS (9 sets, daily range): BP systolic 121–156; BP diastolic 72–84; PULSE 66–79; TEMP 36.6–36.8; O2SAT 90–95
[2016-05-08] MEDS: ALBUTEROL 0.5% NEB SOLN 2.5 MG/0.5 ML VIAL INH SCH ×3 (02:16→14:31)
[2016-05-08] MEDS: OCTREOTIDE ACETATE 100 MCG/ML VIAL SQ SCH ×2 (05:48→13:51)
[2016-05-08] MEDS: HEPARIN SOD 5000 UNIT/0.5 ML CARP SQ SCH ×3 (05:48→21:32)
[2016-05-08] MEDS: PIPERACILL/TAZOBAC IV 3.375 GM in DEXTROSE 5% 100ML 100 ML IV SCH ×3 (07:51→23:24)
[2016-05-08] MEDS: INSULIN ASPART 100 UNITS/ML 3 ML PEN SC SCH ×4 (08:41→21:00)
[2016-05-08] MEDS: MONTELUKAST SOD 10 MG TAB PO SCH (08:42)
[2016-05-08] MEDS: PANTOprazole SOD 40 MG TAB PO SCH (08:43)
[2016-05-08] MEDS: DOCUSATE SODIUM/SENNA 50/8.6MG TAB PO SCH ×2 (08:43→21:24)
--- NOTE | 2016-05-08 11:40 | Surgery Progress Note ---
Surgery Progress Note Date of Service May 08, 2016. Subjective Post OP Day: 6 + SOB (much, much better today), + diet (tolerating diet), + feeling well, No nausea, No vomiting Objective Vital Signs: Date Time Temp Pulse Resp B/P Pulse Ox O2 Delivery O2 Flow Rate FiO2 05/08/16 08:44 79 121/75 05/08/16 07:45 91 Room Air 05/08/16 07:45 36.8 70 16 145/76 91 Room Air 05/08/16 07:30 70 16 93 Room Air 05/08/16 02:16 66 16 91 Room Air 05/07/16 23:50 Room Air 05/07/16 23:09 37.0 66 18 128/67 98 Room Air 05/07/16 19:51 62 18 92 Room Air 05/07/16 16:00 36.9 64 16 145/74 90 Room Air 05/07/16 15:45 Room Air 05/07/16 14:04 77 20 95 Room Air Physical Exam: JAMAAL drainage (#1: 155 cc yesterday, 70 cc first shift today; #2: 0 cc yestersay and 0 cc firdt shift today; chylous) Abdomen: normal bowel sounds, non tender, non distended Incision(s): clean, dry, intact, no drainage Laboratory Results: Results Past 24 Hours Test 05/07/16 12:04 05/07/16 17:15 05/07/16 20:44 05/08/16 08:01 Range/Units Bedside Glucose 154 164 174 158 70-99 mg/dl Assessment & Plan S/P lap casper for gangrenous cholecystitis Pancreatitis with areas of necrosis by CT scan J-P drainage still appears chylous WBC elevated, afebrile On Zosyn, would continue
--- NOTE | 2016-05-08 13:55 | Progress Note ---
Subjective Date of Service: May 08, 2016. Subjective pt continues to clinically improve but still with JAMAAL drain outpt Review of Systems Constitutional: No chills, No fever Respiratory: No cough, No shortness of breath Cardiac: No chest pain, No edema Abdomen: + pain, No diarrhea, No nausea, No vomiting Musculoskeletal: No joint pain, No muscle pain Neurologic: No memory loss, No paralysis Psychiatric: No anhedonism, No depression symptoms Objective Vital Signs Date Time Temp Pulse Resp B/P Pulse Ox O2 Delivery O2 Flow Rate FiO2 05/08/16 07:45 36.8 70 16 145/76 91 Room Air 05/08/16 07:30 70 16 93 Room Air 05/08/16 02:16 66 16 91 Room Air 05/07/16 23:50 Room Air 05/07/16 23:09 37.0 66 18 128/67 98 Room Air 05/07/16 19:51 62 18 92 Room Air 05/07/16 16:00 36.9 64 16 145/74 90 Room Air 05/07/16 15:45 Room Air 05/07/16 14:04 77 20 95 Room Air Physical Exam General Appearance: WD/WN, + mild distress Neck: supple, no JVD Respiratory/Chest: chest non-tender, lungs clear, no accessory muscle use Cardiovascular: regular rate, rhythm, no murmur Abdomen: normal bowel sounds, non tender, soft Extremities: no pedal edema, no calf tenderness Neurologic/Psychiatric: alert, oriented x 3 Laboratory Results Last 24 Hours Test 05/07/16 12:04 05/07/16 17:15 05/07/16 20:44 Bedside Glucose 154 mg/dl 164 mg/dl 174 mg/dl Assessment and Plan 86 M transferred from [place] [facility] with acute cholecystitis found at surgery to have more significant injury to gall bladder with necrosis and concern for peritonitis review of LFT shows are normalizing, clinical picture is improving, CT shows pancreatitis, GI med is following they recommend continued feeding unless clinically decompensates Cholecystitis, zosyn octreotide is started to try to reduce secretions, still with approx 150 ml shift History of tobacco abuse, no issues with respiratory failure, counselled re cessation,wheezing resolved duonebs Chronic BPH, did require post op Overton removed and prn straight cath DVT prevention will be with heparin Acute blood loss anemia has been stable Mild protein malnutrition, will provide supplements once taking po called michelle fischer, daughter and left message 05/08 Continued [facility] stay due to: fever, inadequate po fluid intake, inadequate oral pain control, ambulation difficulties, multiple IV medications needed
[2016-05-08] MEDS: FLUCONAZOLE / NSS 200 MG in PREMIXED NSS 100 ML IV SCH (14:32)
[2016-05-08] MEDS ORDERED: ALBUTEROL HFA 8 GM INHALER INH ONE (14:49)
--- NOTE | 2016-05-08 15:30 | Progress Note ---
Progress Note Date of Service May 08, 2016. Progress Note Pt feels well - aye abd pain, tolerating PO ("best food I've ever had!"), and is stooling. He reports that his JAMAAL drainage is appearing less milky. 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 Will d/c octreotide. I don't see any need for MRCP at this time. - He is on broad spectrum abx and antifungals although he does not appear to have inf panc necrosis; will defer to surgery. - Cont feeds; he is sam these well. Will sign off; please consult as needed.
[2016-05-08] MEDS: TAMSULOSIN HCL 0.4 MG CAP PO SCH (21:25)
[2016-05-08] MEDS: ALBUTEROL HFA 8 GM INHALER INH SCH ×2 (21:33→23:24)
[2016-05-08] MEDS: CETIRIZINE HCL 10 MG TAB PO SCH (21:41)
[2016-05-09] MEDS: HEPARIN SOD 5000 UNIT/0.5 ML CARP SQ SCH ×3 (05:37→21:34)
[2016-05-09] MEDS: ALBUTEROL HFA 8 GM INHALER INH SCH ×3 (05:38→18:28)
[2016-05-09 05:57] LABS: HEMATOCRIT 33.6 % (42-52); MEAN CELL VOLUME 90.8 fL (80-100); MEAN CORPUSCULAR HEMOGLOBIN 30.3 pg (25-34); MEAN CORPUSCULAR HGB CONC 33.3 g/dl (32-36); MEAN PLATELET VOLUME 9.6 fL (7.4-10.4); PLATELET COUNT 265 K/uL (130-400); WHITE BLOOD COUNT 23.45 K/uL (4.8-10.8)
[2016-05-09 06:32] LABS: BUN/CREATININE RATIO 10.3 (10-20); CALCIUM 8.7 mg/dl (8.5-10.1); CREATININE 1.3 mg/dl (0.60-1.40); POTASSIUM 3.7 mmol/L (3.5-5.1)
[2016-05-09 07:06] VITALS: BP 152/78; PULSE 68; TEMP 36.3; O2SAT 92
[2016-05-09] MEDS: INSULIN ASPART 100 UNITS/ML 3 ML PEN SC SCH ×4 (08:00→20:57)
[2016-05-09] MEDS: MONTELUKAST SOD 10 MG TAB PO SCH (08:32)
[2016-05-09] MEDS: DOCUSATE SODIUM/SENNA 50/8.6MG TAB PO SCH ×2 (08:32→21:00)
[2016-05-09] MEDS: PANTOprazole SOD 40 MG TAB PO SCH (08:32)
[2016-05-09] MEDS: PIPERACILL/TAZOBAC IV 3.375 GM in DEXTROSE 5% 100ML 100 ML IV SCH ×2 (08:39→16:02)
--- NOTE | 2016-05-09 11:48 | Surgery Progress Note ---
Surgery Progress Note Date of Service May 09, 2016. Subjective Post OP Day: 7 + bowel movement, + diet (tolerating diet), + feeling well, + flatus, No nausea , No vomiting Objective Vital Signs: Date Time Temp Pulse Resp B/P Pulse Ox O2 Delivery O2 Flow Rate FiO2 05/09/16 07:30 Room Air 05/09/16 07:06 36.3 68 17 152/78 92 Room Air 05/08/16 23:25 Room Air 05/08/16 22:56 36.6 67 20 150/78 90 Room Air 05/08/16 15:45 Room Air 05/08/16 14:59 36.6 67 16 156/84 95 Room Air 05/08/16 14:31 Room Air Physical Exam: JAMAAL drainage (#1:230 cc yesterday, 110 cc last shift, appears less chylous; #2: 0 cc yesterday and today so far) Abdomen: normal bowel sounds, non tender, non distended, soft, + tenderness ( mild incisional only) Incision(s): clean, dry, intact, no erythema Laboratory Results: Results Past 24 Hours Test 05/08/16 12:16 05/08/16 16:41 05/08/16 20:43 05/09/16 05:28 Range/Units Bedside Glucose 183 121 155 70-99 mg/dl White Blood Count 23.45 4.8-10.8 K/uL Red Blood Count 3.70 4.7-6.1 M/uL Hemoglobin 11.2 14.0-18.0 g/dL Hematocrit 33.6 42-52 % Mean Corpuscular Volume 90.8 80-100 fL Mean Corpuscular Hemoglobin 30.3 25-34 pg Mean Corpuscular Hemoglobin Concent 33.3 32-36 g/dl RDW Standard Deviation 48.1 36.4-46.3 fL RDW Coefficient of Variation 14.4 11.5-14.5 % Platelet Count 265 130-400 K/uL Mean Platelet Volume 9.6 7.4-10.4 fL Nucleated RBC Absolute Count (auto) 0.04 0-0 K/uL Nucleated Red Blood Cells % 0.2 % Sodium Level 139 136-145 mmol/L Potassium Level 3.7 3.5-5.1 mmol/L Chloride Level 104 98-107 mmol/L Carbon Dioxide Level 23 21-32 mmol/L Anion Gap 12.0 3-11 mmol/L Blood Urea Nitrogen 13 7-18 mg/dl Creatinine 1.30 0.60-1.40 mg/dl Est Creatinine Clear Calc Drug Dose 41.7 ml/min Estimated GFR () 58.1 Estimated GFR (Non- 50.1 BUN/Creatinine Ratio 10.3 10-20 Random Glucose 138 70-99 mg/dl Calcium Level 8.7 8.5-10.1 mg/dl Test 05/09/16 07:56 Range/Units Bedside Glucose 123 70-99 mg/dl Assessment & Plan S/P lap casper for gangrenous cholecystitis Pancreatitis with areas of necrosis by CT scan J-P drainage appears less chylous WBC elevated, afebrile On Zosyn, would continue
--- NOTE | 2016-05-09 13:32 | Progress Note ---
Subjective Date of Service: May 09, 2016. Subjective Pt evaluation today including: conversation w/ patient, physical exam, chart review, lab review, review of studies, review of inpatient medication list Pt resting comfortably in bed Denies any fevers, chills, abdominal pain States stool is more solid No further concerns Review of Systems Constitutional: No chills, No fatigue, No fever, No weakness Respiratory: No cough, No dyspnea on exertion, No shortness of breath, No sputum, No wheezing Cardiac: No chest pain, No orthopnea Abdomen: No constipation, No diarrhea, No nausea, No pain, No vomiting Musculoskeletal: No joint pain, No muscle pain Male : No dysuria, No urinary frequency Psychiatric: No anxiety, No depression symptoms Objective Vital Signs Date Time Temp Pulse Resp B/P Pulse Ox O2 Delivery O2 Flow Rate FiO2 05/09/16 07:30 Room Air 05/09/16 07:06 36.3 68 17 152/78 92 Room Air 05/08/16 23:25 Room Air 05/08/16 22:56 36.6 67 20 150/78 90 Room Air 05/08/16 15:45 Room Air 05/08/16 14:59 36.6 67 16 156/84 95 Room Air 05/08/16 14:31 Room Air Physical Exam General Appearance: WD/WN, no apparent distress Eyes: PERRL, EOMI Neck: supple, no adenopathy Respiratory/Chest: lungs clear, normal breath sounds Cardiovascular: no edema, no gallop Abdomen: non tender, soft Neurologic/Psychiatric: alert, oriented x 3 Laboratory Results Last 24 Hours Test 05/08/16 16:41 05/08/16 20:43 05/09/16 05:28 05/09/16 07:56 Bedside Glucose 121 mg/dl 155 mg/dl 123 mg/dl White Blood Count 23.45 K/uL Red Blood Count 3.70 M/uL Hemoglobin 11.2 g/dL Hematocrit 33.6 % Mean Corpuscular Volume 90.8 fL Mean Corpuscular Hemoglobin 30.3 pg Mean Corpuscular Hemoglobin Concent 33.3 g/dl RDW Standard Deviation 48.1 fL RDW Coefficient of Variation 14.4 % Platelet Count 265 K/uL Mean Platelet Volume 9.6 fL Nucleated RBC Absolute Count (auto) 0.04 K/uL Nucleated Red Blood Cells % 0.2 % Sodium Level 139 mmol/L Potassium Level 3.7 mmol/L Chloride Level 104 mmol/L Carbon Dioxide Level 23 mmol/L Anion Gap 12.0 mmol/L Blood Urea Nitrogen 13 mg/dl Creatinine 1.30 mg/dl Est Creatinine Clear Calc Drug Dose 41.7 ml/min Estimated GFR () 58.1 Estimated GFR (Non- 50.1 BUN/Creatinine Ratio 10.3 Random Glucose 138 mg/dl Calcium Level 8.7 mg/dl Test 05/09/16 11:59 Bedside Glucose 146 mg/dl Assessment and Plan Patient is a 86 year old male w PMHx of HTN, BPH presented as a transfer from [facility] for further management of acute cholecystitis, pancreatitis. He had been c/o LLQ abd area x 2-3 days. Denies any n/v, diarrhea. He went to [facility] and labs showed WBC of 22K. CT abd/pelvis w acute cholecystitis , and pancreatitis, no diverticulosis. His LFTs were mildly elevated, Lipase in 200s. He had abd u/s at admission which showed distended gallbladder, w gallstones, CBD 1.1cm. Pancreas not seen due to overlaying bowel. He underwent lap cholecystectomy by Dr. Miller on 05/02 - gallbladder noted to be necrotic and gangrenous. 2 JAMAAL drain placed. GI consulted as one of the JAMAAL drains started putting out milky fluid. 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 Triglyceride from the JAMAAL fluid came back at 171. Review of LFT are normalizing, clinical picture is improving, CT shows pancreatitis, GI med is following they recommend continued feeding unless clinically decompensates. Octreotide is started to try to reduce secretions. Elev WBC, cont zosyn at this time History of tobacco abuse, no issues with respiratory failure, counselled re cessation,wheezing resolved duonebs Chronic BPH, did require post op Overton removed and prn straight cath DVT prevention will be with heparin Acute blood loss anemia has been stable Mild protein malnutrition, will provide supplements once taking po Continued [facility] stay due to: fever, inadequate po fluid intake, inadequate oral pain control, ambulation difficulties, multiple IV medications needed
[2016-05-09 15:08] VITALS: BP 134/82; PULSE 67; TEMP 36.9; O2SAT 93
[2016-05-09 16:00] VITALS: O2SAT 95
[2016-05-09] MEDS: FLUCONAZOLE / NSS 200 MG in PREMIXED NSS 100 ML IV SCH (16:02)
[2016-05-09] MEDS: TAMSULOSIN HCL 0.4 MG CAP PO SCH (21:29)
[2016-05-09] MEDS: CETIRIZINE HCL 10 MG TAB PO SCH (21:29)
[2016-05-09 23:21] VITALS: BP 138/78; PULSE 63; TEMP 36.7; O2SAT 94
[2016-05-10] MEDS: PIPERACILL/TAZOBAC IV 3.375 GM in DEXTROSE 5% 100ML 100 ML IV SCH ×4 (00:34→23:33)
[2016-05-10] MEDS: ALBUTEROL HFA 8 GM INHALER INH SCH ×5 (00:35→23:34)
[2016-05-10] MEDS: HEPARIN SOD 5000 UNIT/0.5 ML CARP SQ SCH ×3 (05:42→22:02)
[2016-05-10 06:11] LABS: CREATININE 1.4 mg/dl (0.60-1.40)
[2016-05-10 06:59] VITALS: BP 144/75; PULSE 71; TEMP 36.6; O2SAT 93
[2016-05-10] MEDS: INSULIN ASPART 100 UNITS/ML 3 ML PEN SC SCH ×4 (08:00→20:48)
--- NOTE | 2016-05-10 08:13 | SURGERY PROGRESS NOTE ---
DATE: 05/10/2016 HISTORY OF PRESENT ILLNESS: Valeriano is 8th postoperative day status post laparoscopic cholecystectomy for gangrenous acute cholecystitis. This morning he is resting comfortably. He is having no pain. He denies any back pain. He is tolerating a regular diet. He has been up and around. PHYSICAL EXAMINATION: His last vitals showed a temperature of 36.6, pulse 71, respiration 18, blood pressure 144/75 and O2 sats 93 on room air. His I\T\O has been balanced and a negative side. Weight on initial admission was 86.5, not been obtained since then. His abdomen is softly distended, it is nontender. The incisions look free of any inflammation. The drain site has just a little reaction along the entry site which is normal. The chambers have just recently been drained. The #1 drain which I suspect is a subhepatic area to me it has slight tinge of bilious rightly possibly of old blood. The 1 in the pelvis appears to be quite clear in relation to what the previous reported as milky white. LABORATORY DATA: At this point, the laboratory is pending. His white count is still moderately elevated yesterday in the 20,000. MEDICATIONS: He is being continued on broad spectrum antibiotics. ASSESSMENT AND PLAN: The patient is anxious to go home. He said he lives alone, but he has plenty of labor is around. He does not want to go to [facility]. We will leave it up to the medical service. Right now, he is on antibiotic for approximately 8 days, probably to complete a day course and may be able to stop it. Regarding his drains at this present time, I will leave both of them in. The most recent CAT scan showed a significant inflammatory process in the pancreas, but there was no evidence of any abscess formation. [facility]
[2016-05-10] MEDS: DOCUSATE SODIUM/SENNA 50/8.6MG TAB PO SCH ×2 (09:00→21:13)
[2016-05-10] MEDS: MONTELUKAST SOD 10 MG TAB PO SCH (09:22)
[2016-05-10] MEDS: PANTOprazole SOD 40 MG TAB PO SCH (09:25)
--- NOTE | 2016-05-10 09:32 | Progress Note ---
Subjective Date of Service: May 10, 2016. Subjective Pt evaluation today including: conversation w/ patient, physical exam, chart review, lab review, review of studies, review of inpatient medication list Sitting up in chair, conversational, pleasant, no complaining, report has been up and walk with walker, eating and voiding okay, no constipation, Review of Systems Constitutional: No chills, No fatigue, No fever, No problem reported, No sweats , No weakness, No weight loss Eyes: No diplopia, No discharge, No eye pain, No redness, No worsening of vision ENT: No dental problems, No hearing loss, No nasal symptoms, No sore throat, No tinnitus, No trouble swallowing, No unusual epistaxis Respiratory: No cough, No dyspnea at rest, No dyspnea on exertion, No hemoptysis, No shortness of breath, No sputum, No wheezing Cardiac: No PND, No chest pain, No claudication, No edema, No orthopnea, No palpitations Abdomen: No constipation, No diarrhea, No nausea, No pain, No vomiting Musculoskeletal: No calf pain, No joint pain, No muscle pain, No swelling Male : No dysuria, No hematuria, No incontinence, No nocturia more than once/ night, No slowing stream, No urinary frequency Neurologic: No balance problems, No memory loss, No numbness/tingling, No paralysis, No vertigo, No weakness Psychiatric: No anhedonism, No anxiety, No depression symptoms, No insomnia, No substance abuse Heme: No abnormal bleeding/bruising, No clotting problems, No night sweats, No swollen lymph nodes Endo: No excessive thirst, No excessive urination, No fatigue Skin: No bleeding, No color change, No itch, No new/changing skin lesions, No rash Objective Vital Signs Date Time Temp Pulse Resp B/P Pulse Ox O2 Delivery O2 Flow Rate FiO2 05/10/16 06:59 36.6 71 144/75 93 Room Air 05/10/16 00:30 Room Air 05/09/16 23:21 36.7 63 18 138/78 94 Room Air 05/09/16 16:00 95 Room Air 05/09/16 15:08 36.9 67 18 134/82 93 Room Air Physical Exam General Appearance: WD/WN, no apparent distress, + obese Eyes: normal inspection, PERRL, EOMI, sclerae normal ENT: normal ENT inspection, hearing grossly normal, pharynx normal Neck: supple, no adenopathy, thyroid normal, no JVD, no carotid bruits, trachea midline Respiratory/Chest: chest non-tender, normal breath sounds, no respiratory distress, no accessory muscle use, + decreased breath sounds Cardiovascular: regular rate, rhythm, no edema, no gallop, no JVD, no murmur Abdomen: normal bowel sounds, non tender, soft, no organomegaly, no pulsatile mass, + pertinent finding ([address], one has milky color draiange) Extremities: normal range of motion, non-tender, normal inspection, no pedal edema, no calf tenderness, normal capillary refill, pelvis stable Neurologic/Psychiatric: notereader II-XII nml as tested, no motor/sensory deficits, alert, normal mood/affect, oriented x 3 Skin: normal color, warm/dry, no rash Lymphatic: no adenopathy Laboratory Results Last 24 Hours Test 05/09/16 11:59 05/09/16 16:53 05/09/16 20:43 05/10/16 05:31 Bedside Glucose 146 mg/dl 114 mg/dl 144 mg/dl Creatinine 1.40 mg/dl Est Creatinine Clear Calc Drug Dose 38.7 ml/min Estimated GFR () 53.1 Estimated GFR (Non- 45.8 Test 05/10/16 07:53 Bedside Glucose 120 mg/dl Assessment and Plan 86 year old male w PMHx of HTN, BPH presented as a transfer from [facility] for further management of acute cholecystitis, pancreatitis. He had been c/o LLQ abd area x 2-3 days. Before admission denies any n/v, diarrhea. He went to [facility] and labs showed WBC of 22K. CT abd/pelvis w acute cholecystitis, and pancreatitis, no diverticulosis. His LFTs were mildly elevated, Lipase in 200s. Upon admission him a He had abd u/s at admission which showed distended gallbladder, w gallstones, CBD 1.1cm. Pancreas not seen due to overlaying bowel. He underwent lap cholecystectomy by Dr. Miller on 05/02 2016 - gallbladder noted to be necrotic and gangrenous. 2 JAMAAL drain placed. GI consulted as one of the JAMAAL drains started putting out milky fluid. 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 Triglyceride from the JAMAAL fluid came back at 171. acute cholecystitis, with lap cholecystectomy by Dr. Miller on 05/02 2016 - gallbladder noted to be necrotic and gangrenous. Acute pancreatitis. LFT are normalizing, clinical picture is improving, CT shows pancreatitis, GI med is following they recommend continued feeding unless clinically decompensates. Octreotide is started to try to reduce secretions. Significant elevated WBC , has been on zosy for 8 days, patient generally looks well, although leukocytosis and today even that it'll be [place] [id number] compared to 22,000, he does not look toxic , cont zosyn at this time, may discontinue soon History of tobacco abuse, no issues with respiratory failure, counselled re cessation,wheezing resolved duonebs Chronic BPH, did require post op Overton removed and prn straight cath DVT prevention will be with heparin Acute blood loss anemia has been stable Mild protein malnutrition, will provide supplements once taking po Patient want to go home with home healthcare, and declined rehabilitation, however PT/OT recommend rehabilitation, the last note was several days ago I want to have them to reevaluation patient and define the care plan Continued [facility] stay due to: fever, inadequate po fluid intake, inadequate oral pain control, ambulation difficulties, multiple IV medications needed Discharge planning: rehab hospital
[2016-05-10] MEDS: FLUCONAZOLE / NSS 200 MG in PREMIXED NSS 100 ML IV SCH (15:23)
[2016-05-10 15:32] VITALS: BP 150/81; PULSE 76; TEMP 36.6; O2SAT 92
[2016-05-10 21:11] VITALS: BP 133/78; PULSE 76
[2016-05-10] MEDS: CETIRIZINE HCL 10 MG TAB PO SCH (21:13)
[2016-05-10] MEDS: TAMSULOSIN HCL 0.4 MG CAP PO SCH (21:13)
[2016-05-10 23:20] VITALS: BP 152/81; PULSE 64; TEMP 36.4; O2SAT 95
[2016-05-11] MEDS: HEPARIN SOD 5000 UNIT/0.5 ML CARP SQ SCH ×3 (05:52→21:00)
[2016-05-11] MEDS: ALBUTEROL HFA 8 GM INHALER INH SCH ×3 (05:52→18:35)
[2016-05-11 06:54] VITALS: BP 127/67; PULSE 70; TEMP 36.4; O2SAT 93
--- NOTE | 2016-05-11 07:08 | SURGERY PROGRESS NOTE ---
DATE: 05/11/2016 Valeriano continues to do well. He is not complaining of any abdominal pain. His last vitals showed a temperature of 36.4, pulse 64, respirations 18, blood pressure 152/81, O2 sats 95 on room air. I know he has been moving his bowels and this seems to be normalizing. His Onofre-Francisco drainage has been about 145 yesterday out of #1, very little out of #2. The characteristic of the drainage this morning is more chyle in nature. His abdomen is soft, it is distended but tympanitic. He is passing flatus. He is tolerating a regular diet. His sequential compression stockings may be hindering him to move around, he is on subcu heparin; therefore, we will discontinue them. At this point, I will continue the present theory. Laboratory this morning is pending, but I suspect we will be able to stop the antibiotic therapy, and approximately 24 hours, will nearly complete a 10-day course. I think he at this present time is slated to go to [facility] for some rehab, although he does not favor going there.
[2016-05-11] MEDS: INSULIN ASPART 100 UNITS/ML 3 ML PEN SC SCH ×4 (08:00→21:00)
[2016-05-11 08:06] LABS: HEMATOCRIT 35.4 % (42-52); MEAN CELL VOLUME 92.9 fL (80-100); MEAN CORPUSCULAR HEMOGLOBIN 31.2 pg (25-34); MEAN CORPUSCULAR HGB CONC 33.6 g/dl (32-36); MEAN PLATELET VOLUME 9.5 fL (7.4-10.4); PLATELET COUNT 271 K/uL (130-400); RED BLOOD COUNT 3.81 M/uL (4.7-6.1); WHITE BLOOD COUNT 24.31 K/uL (4.8-10.8)
[2016-05-11 08:38] LABS: BUN/CREATININE RATIO 9.9 (10-20); CALCIUM 9.1 mg/dl (8.5-10.1); CREATININE 1.6 mg/dl (0.60-1.40); POTASSIUM 4.1 mmol/L (3.5-5.1)
[2016-05-11] MEDS: MONTELUKAST SOD 10 MG TAB PO SCH (08:50)
[2016-05-11] MEDS: PANTOprazole SOD 40 MG TAB PO SCH (08:51)
[2016-05-11] MEDS: DOCUSATE SODIUM/SENNA 50/8.6MG TAB PO SCH ×2 (08:51→20:57)
[2016-05-11 08:57] VITALS: BP 99/61; PULSE 70
--- NOTE | 2016-05-11 14:19 | Progress Note ---
Subjective Date of Service: May 11, 2016. Subjective Pt evaluation today including: conversation w/ patient, physical exam, chart review, lab review, review of studies, review of inpatient medication list Voiding: no voiding problems OOB, sitting up in chair, no c/o Review of Systems Constitutional: No chills, No fatigue, No fever, No problem reported, No sweats , No weakness, No weight loss Eyes: No diplopia, No discharge, No eye pain, No redness, No worsening of vision ENT: No dental problems, No hearing loss, No nasal symptoms, No sore throat, No tinnitus, No trouble swallowing, No unusual epistaxis Respiratory: No cough, No dyspnea at rest, No dyspnea on exertion, No hemoptysis, No shortness of breath, No sputum, No wheezing Cardiac: No PND, No chest pain, No claudication, No edema, No orthopnea, No palpitations Abdomen: No constipation, No diarrhea, No nausea, No pain, No vomiting Musculoskeletal: No calf pain, No joint pain, No muscle pain, No swelling Male : No dysuria, No hematuria, No incontinence, No nocturia more than once/ night, No slowing stream, No urinary frequency Neurologic: No balance problems, No memory loss, No numbness/tingling, No paralysis, No vertigo, No weakness Psychiatric: No anhedonism, No anxiety, No depression symptoms, No insomnia, No substance abuse Heme: No abnormal bleeding/bruising, No clotting problems, No night sweats, No swollen lymph nodes Endo: No excessive thirst, No excessive urination, No fatigue Skin: No bleeding, No color change, No itch, No new/changing skin lesions, No rash Objective Vital Signs Date Time Temp Pulse Resp B/P Pulse Ox O2 Delivery O2 Flow Rate FiO2 05/11/16 08:57 70 99/61 05/11/16 07:13 Room Air 05/11/16 06:54 36.4 70 17 127/67 93 Room Air 05/10/16 23:20 36.4 64 18 152/81 95 Room Air 05/10/16 23:20 Room Air 05/10/16 21:11 76 133/78 05/10/16 19:45 Room Air 05/10/16 15:32 36.6 76 18 150/81 92 Room Air Physical Exam General Appearance: WD/WN, no apparent distress, + obese Eyes: normal inspection, PERRL, EOMI, sclerae normal ENT: normal ENT inspection, hearing grossly normal, pharynx normal Neck: supple, no adenopathy, thyroid normal, no JVD, no carotid bruits, trachea midline Respiratory/Chest: chest non-tender, lungs clear, normal breath sounds, no respiratory distress, no accessory muscle use Cardiovascular: regular rate, rhythm, no edema, no gallop, no JVD, no murmur Abdomen: normal bowel sounds, non tender, soft, no organomegaly, no pulsatile mass, + pertinent finding (mid abd umbilical area has incision and stitches, local no red/ternder, Right mid abd has 2 JAMAAL, one of it has millky fluid in the bag, ) Extremities: normal range of motion, non-tender, normal inspection, no pedal edema, no calf tenderness, normal capillary refill, pelvis stable Neurologic/Psychiatric: 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, no motor/sensory deficits, alert, normal mood/affect, oriented x 3 Skin: normal color, warm/dry, no rash Lymphatic: no adenopathy Laboratory Results Last 24 Hours Test 05/10/16 16:56 05/10/16 20:28 05/11/16 07:59 05/11/16 08:20 Bedside Glucose 124 mg/dl 160 mg/dl 101 mg/dl White Blood Count 24.31 K/uL Red Blood Count 3.81 M/uL Hemoglobin 11.9 g/dL Hematocrit 35.4 % Mean Corpuscular Volume 92.9 fL Mean Corpuscular Hemoglobin 31.2 pg Mean Corpuscular Hemoglobin Concent 33.6 g/dl RDW Standard Deviation 49.2 fL RDW Coefficient of Variation 14.5 % Platelet Count 271 K/uL Mean Platelet Volume 9.5 fL Sodium Level 137 mmol/L Potassium Level 4.1 mmol/L Chloride Level 105 mmol/L Carbon Dioxide Level 23 mmol/L Anion Gap 9.0 mmol/L Blood Urea Nitrogen 16 mg/dl Creatinine 1.60 mg/dl Est Creatinine Clear Calc Drug Dose 32.7 ml/min Estimated GFR () 45.2 Estimated GFR (Non- 39.0 BUN/Creatinine Ratio 9.9 Random Glucose 121 mg/dl Calcium Level 9.1 mg/dl Test 05/11/16 11:34 Bedside Glucose 141 mg/dl Assessment and Plan 86 year old male w PMHx of HTN, BPH presented as a transfer from [facility] for further management of acute cholecystitis, pancreatitis. He had been c/o LLQ abd area x 2-3 days. Before admission denies any n/v, diarrhea. He went to [facility] and labs showed WBC of 22K. CT abd/pelvis w acute cholecystitis, and pancreatitis, no diverticulosis. His LFTs were mildly elevated, Lipase in 200s. Upon admission him a He had abd u/s at admission which showed distended gallbladder, w gallstones, CBD 1.1cm. Pancreas not seen due to overlaying bowel. He underwent lap cholecystectomy by Dr. Miller on 05/02 2016 - gallbladder noted to be necrotic and gangrenous. 2 JAMAAL drain placed. GI consulted as one of the JAMAAL drains started putting out milky fluid. 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 Triglyceride from the JAMAAL fluid came back at 171. acute cholecystitis, with lap cholecystectomy by Dr. Miller on 05/02 2016 - gallbladder noted to be necrotic and gangrenous. Acute pancreatitis. cotn stable/improving CT shows pancreatitis, GI med is following they recommend continued feeding unless clinically decompensates. Octreotide was on try to reduce secretions. Significant elevated WBC , mild cont elected has been on zosy for 9 days, patient generally looks well, although leukocytosis he does not look toxic , Dc Zosyn and Diflucan History of tobacco abuse, no issues with respiratory failure, counselled re cessation,wheezing resolved duonebs prn Chronic BPH, did require post op Overton removed and prn straight cath DVT prevention will be with heparin Acute blood loss anemia has been stable Mild protein malnutrition, will provide supplements once taking po Patient want to go home with home healthcare with own risks, and declined rehabilitation, pt knows increased risks of readmission, plan Dc home [facility] Continued [facility] stay due to: fever, inadequate po fluid intake, inadequate oral pain control, ambulation difficulties, multiple IV medications needed Discharge planning: rehab hospital
[2016-05-11 15:30] VITALS: BP 100/63; PULSE 75; TEMP 37; O2SAT 90
[2016-05-11] MEDS: CETIRIZINE HCL 10 MG TAB PO SCH (20:57)
[2016-05-11] MEDS: TAMSULOSIN HCL 0.4 MG CAP PO SCH (20:57)
[2016-05-11 22:50] VITALS: BP 149/84; PULSE 79; TEMP 36.9; O2SAT 90
[2016-05-12] MEDS: ALBUTEROL HFA 8 GM INHALER INH SCH ×3 (00:29→12:01)
[2016-05-12] MEDS: HEPARIN SOD 5000 UNIT/0.5 ML CARP SQ SCH (05:48)
[2016-05-12 07:20] VITALS: BP 146/79; PULSE 79; TEMP 36.6; O2SAT 94
[2016-05-12] MEDS ORDERED: PRT40 PO (07:46)
[2016-05-12] MEDS ORDERED: MRLP17X PO (07:46)
[2016-05-12] MEDS ORDERED: VNTHFA/IN INH (07:46)
--- NOTE | 2016-05-12 07:46 | SURGERY PROGRESS NOTE ---
DATE: 05/12/2016 Valeriano continues to do well. He is having no issues. He still has some abdominal distention. His last vitals showed a temperature of 36.9, pulse 79, respirations 20, blood pressure 149/84, O2 sats 90 on room air. I\T\O the patient had 675 urine overnight and he is balanced. His weight is 82 kilograms yesterday; on admission it was 86. His abdomen is completely benign. The incisions are intact. There is no cellulitis on the incision or the stitches. His drainage has subsided as far as the Onofre-Francisco drains. At this point my recommendations are to stop the antibiotics, certainly he could proceed to be discharged at the discretion of the primary service and we will see him back in the office next week. I will leave both drains in at this time. Also leave the sutures in. Dr. Freeman yesterday had a question about removing the skin sutures according to message related to me by nursing staff. Due to his nutritional status I will leave them in until seen in office next week. Instructions will be given. ANA
--- NOTE | 2016-05-12 07:51 | Discharge Instructions ---
Discharge Instructions Date of Service May 12, 2016. Admission Reason for Admission: Abd Pain,Acute Cholecystitis,Pancreatitis Discharge Discharge Diagnosis / Problem: acute cholecystitis, with lap cholecystectomy Discharge Goals Goal(s): Decrease discomfort, Improve function, Increase independence, Improve disease control Activity Recommendations Activity Limitations: resume your previous activity Exercise/Sports Limitations: as tolerated May Resume Sexual Activity: when tolerated Shower/Bathe: keep incision dry . Instructions / Follow-Up Instructions / Follow-Up you have acute cholecystitis, with lap cholecystectomy , and Acute pancreatitis. you need to follow up with Dr. Miller as instructed in 3-5 days, RN please provide Dr. Miller's office number fro patient to call for appointment you have Significant elevated White blood cell count, however, for now you don' t have signs of infection , you need to call pcp or Dr. Miller if you have any questions, or if have fever We recommend you need to go to rehab facilities, however, you want to go home with home health care , you need to continue home health care at home for local drainage care per instruction from surgeon, and call pcp if any need - you need to follow up with your primary care physician in 1 week, - take medication as instructed, never overdose or any misuse, or take with alcohol, because misuse of medicine may cause organ damage or , call your primary care physician if have questions of medicaitons. - call your primary care physician OR go to local emergency room if has any fever/chill, chest pain, shortness of breathing, nausea/vomiting/abdominal pain , facial droop/slurry speech/local weakness, or if has any questions. - fall precaution - diet as instructed - you need to follow up with your subspecialists - you should understand that it is important to follow up the above instruction , and "not following the above instruction" may cause delayed or missed care of your medical conditions which may cause permanent organ damage and even . Current Hospital Diet Patient's current hospital diet: Diabetes Type 2 Diet, Low Fat Diet Discharge Diet Recommended Diet: Diabetes Type 2 Diet, Low Fat Diet Procedures Procedures Performed: Laparoscopic Cholecystectomy/ partial cholecystectomy, drainage bilious ascites Pending Studies Studies pending at discharge: no Laboratory Results Hemoglobin A1c Test 05/04/16 05:20 Range/Units Estimated Average Glucose 140 mg/dl Hemoglobin A1c 6.5 H 4.5-5.6 % Lipid Panel Test 05/07/16 06:05 Range/Units Triglycerides Level 176 H 0-150 mg/dl Cholesterol Level 101 0-200 mg/dl HDL Cholesterol 17 mg/dl Cholesterol/HDL Ratio 5.9 LDL Cholesterol, Calculated 49 mg/dl Medical Emergencies . Who to Call and When: Medical Emergencies: If at any time you feel your situation is an emergency, please call 911 immediately. . Non-Emergent Contact Non-Emergency issues call your: Primary Care Provider, Surgeon Call Non-Emergent contact if: you have a fever . . "Provider Documentation" section prepared by Anthony Freeman. VTE Core Measure Inpt VTE Proph given/why not?: Enoxaparin (Lovenox)SQ
[2016-05-12] MEDS: INSULIN ASPART 100 UNITS/ML 3 ML PEN SC SCH ×2 (08:00→12:00)
[2016-05-12] MEDS: PANTOprazole SOD 40 MG TAB PO SCH (08:42)
[2016-05-12] MEDS: DOCUSATE SODIUM/SENNA 50/8.6MG TAB PO SCH (08:42)
[2016-05-12] MEDS: MONTELUKAST SOD 10 MG TAB PO SCH (08:42)
--- NOTE | 2016-05-12 10:19 | Discharge Summary ---
Discharge Summary Date of Service May 12, 2016. Discharge Summary Admission Date: May 01, 2016 at 16:05 Discharge Date: May 12, 2016 Discharge Disposition: Home with services Principal Diagnosis: acute cholecystitis, with lap cholecystectomy , and Acute pancreatitis. Problems/Secondary Diagnoses: you have acute cholecystitis, with lap cholecystectomy , and Acute pancreatitis. you need to follow up with Dr. Miller as instructed in 3-5 days, RN please provide Dr. Miller's office number fro patient to call for appointment you have Significant elevated White blood cell count, however, for now you don' t have signs of infection , you need to call pcp or Dr. Miller if you have any questions, or if have fever We recommend you need to go to rehab facilities, however, you want to go home with home health care , you need to continue home health care at home for local drainage care per instruction from surgeon, and call pcp if any need - you need to follow up with your primary care physician in 1 week, - take medication as instructed, never overdose or any misuse, or take with alcohol, because misuse of medicine may cause organ damage or , call your primary care physician if have questions of medicaitons. - call your primary care physician OR go to local emergency room if has any fever/chill, chest pain, shortness of breathing, nausea/vomiting/abdominal pain , facial droop/slurry speech/local weakness, or if has any questions. - fall precaution - diet as instructed - you need to follow up with your subspecialists - you should understand that it is important to follow up the above instruction , and "not following the above instruction" may cause delayed or missed care of your medical conditions which may cause permanent organ damage and even . Procedures: acute cholecystitis, with lap cholecystectomy , and Acute pancreatitis. Consultations: Surgeon Dr. Miller Medication Reconciliation New Medications: Albuterol Hfa (Ventolin Hfa) 200 Puffs/95308 Mcg Aers 2-4 PUFFS INH Q6H for Shortness of Breath for 7 Days, #1 INHALER Pantoprazole (Pantoprazole Sodium) 40 Mg Tab 40 MG PO QAM for 14 Days, #14 TAB Polyethylene (Miralax) 17 Gm Pow 17 GM PO DAILY PRN for Constipation for 14 Days Continued Medications: Aspirin (Aspirin Chewable) 81 Mg Chew 81 MG PO DAILY Atenolol (Tenormin) 25 Mg Tab 25 MG PO DAILY, TAB Cranberry-Vitamin C-Vitamin E (Cranberry) 1 Cap Cap 84 MG PO DAILY Fish Oil ([place]-3) 1 Ea Cap 1 CAP PO BID, CAP Meloxicam (Mobic) 7.5 Mg Tab 7.5 MG PO DAILY, TAB Montelukast Sodium (Montelukast Sodium) 10 Mg Tab 1 TAB PO DAILY for 30 Days, #30 TAB 5 Refills Tamsulosin HCl (Tamsulosin HCl) 0.4 Mg Cap 0.4 MG PO QPM Discharge Exam Out of bed, in chair, doing well, continue eating and drinking, no constipation urination good Review of Systems: Constitutional: No chills, No fatigue, No fever, No problem reported, No sweats, No weakness, No weight loss Eyes: No diplopia, No discharge, No eye pain, No problem reported, No redness, No worsening of vision ENT: No dental problems, No hearing loss, No nasal symptoms, No problem reported, No sore throat, No tinnitus, No trouble swallowing, No unusual epistaxis Respiratory: No cough, No dyspnea at rest, No dyspnea on exertion, No hemoptysis, No problem reported, No shortness of breath, No sputum, No wheezing Cardiovascular: No PND, No chest pain, No claudication, No edema, No orthopnea, No palpitations, No problem reported Abdomen: No GI bleeding, No constipation, No diarrhea, No nausea, No pain, No problem reported, No vomiting Musculoskeletal: No calf pain, No joint pain, No muscle pain, No problem reported, No swelling Genitourinary - Male: No dysuria, No hematuria, No impotence, No lesions, No penile discharge, No problem reported, No urinary frequency, No urinary hesitancy, No urinary incontinence, No urinary retention, No urinary urgency Neurologic: No balance problems, No memory loss, No numbness/tingling, No paralysis, No problem reported, No vertigo, No weakness Psychiatric: No anhedonism, No anxiety, No depression symptoms, No insomnia , No problem reported, No substance abuse Endocrine: No excessive thirst, No excessive urination, No fatigue, No problem reported Hematologic / Lymphatic: No abnormal bleeding/bruising, No clotting problems , No night sweats, No problem reported, No swollen lymph nodes Integumentary: No bleeding, No color change, No itch, No new/changing skin lesions, No problem reported, No rash Physical Exam: General Appearance: WD/WN, + obese Eyes: normal inspection, PERRL ENT: normal ENT inspection, hearing grossly normal Neck: supple, no adenopathy Respiratory/Chest: chest non-tender, no respiratory distress, no accessory muscle use, + decreased breath sounds Cardiovascular: regular rate, rhythm, no edema, no gallop Abdomen / GI: normal bowel sounds, non tender, soft, + pertinent finding ([address]) Extremities: normal inspection, no calf tenderness, normal capillary refill , no pedal edema Neurologic/Psychiatric: 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 He had been c/o LLQ abd area x 2-3 days prior to admission Before admission denies any n/v, diarrhea. He went to [facility] and labs showed WBC of 22K. CT abd/pelvis w acute cholecystitis, and pancreatitis, no diverticulosis. His LFTs were mildly elevated, Lipase in 200s. Upon admission him a He had abd u/s at admission which showed distended gallbladder, w gallstones, CBD 1.1cm. Pancreas not seen due to overlaying bowel. He underwent lap cholecystectomy by Dr. Miller on 05/02 2016 - gallbladder noted to be necrotic and gangrenous. 2 JAMAAL drain placed. GI consulted as one of the JAMAAL drains started putting out milky fluid. 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 Triglyceride from the JAMAAL fluid came back at 171. acute cholecystitis, with lap cholecystectomy by Dr. Miller on 05/02 2016 - gallbladder noted to be necrotic and gangrenous. Continue to stable and improving Acute pancreatitis. Continue stable and improving cont stable/improving CT shows pancreatitis, GI med is following they recommend continued feeding unless clinically decompensates. Octreotide was on try to reduce secretions. Significant elevated WBC , mild cont elected has been on zosy for 9 days, patient generally looks well, although leukocytosis he does not look toxic , Dc Zosyn and Diflucan after 9 days treatment History of tobacco abuse, no issues with respiratory failure, counselled re cessation,wheezing resolved duonebs prn Chronic BPH, did require post op Overton removed and prn straight cath DVT prevention with heparin Acute blood loss anemia has been stable Mild protein malnutrition, stable Patient want to go home with home healthcare with own risks, and declined rehabilitation, pt knows increased risks of readmission, plan Dc home today Discharge instruction in below you have acute cholecystitis, with lap cholecystectomy , and Acute pancreatitis. you need to follow up with Dr. Miller as instructed in 3-5 days, RN please provide Dr. Miller's office number fro patient to call for appointment, OR, as instructed by surgeon you have Significant elevated White blood cell count, however, for now you don' t have signs of infection , you need to call pcp or Dr. Miller if you have any questions, or if have fever We recommend you need to go to rehab facilities, however, you want to go home with home health care , you need to continue home health care at home for local drainage care per instruction from surgeon, and call pcp if any need - you need to follow up with your primary care physician in 1 week, - take medication as instructed, never overdose or any misuse, or take with alcohol, because misuse of medicine may cause organ damage or , call your primary care physician if have questions of medicaitons. - call your primary care physician OR go to local emergency room if has any fever/chill, chest pain, shortness of breathing, nausea/vomiting/abdominal pain , facial droop/slurry speech/local weakness, or if has any questions. - fall precaution - diet as instructed - you need to follow up with your subspecialists - you should understand that it is important to follow up the above instruction , and "not following the above instruction" may cause delayed or missed care of your medical conditions which may cause permanent organ damage and even . Total Time Spent: Greater than 30 minutes This includes examination of the patient, discharge planning, medication reconciliation, and communication with other providers. Discharge Instructions Please refer to the electronic Patient Visit Report (Discharge Instructions) for additional information. Additional Copies To Jerome Mckeon M.D.; Sanford Miller M.D.
[2016-05-12 11:51] VITALS: BP 146/79; PULSE 79; TEMP 36.6; O2SAT 94
== END 2016-05-12 13:40 | disposition home health service (06) | DRG 417 ==
LOC: ENRESERVTM → ENRESERVDT → UNDOADMIN 16:05 → C.MSW 16:05 → C.MSICU 05-02 11:25 → C.MSW 05-04 11:00
PROVIDERS: ADMIT Hospitalist; ATTEND Hospitalist
PROC: 0FT44ZZ Resection of Gallbladder, Percutaneous Endoscopic Approach (ICD-10-PCS; principal; 2016-05-02 09:30)
DX: K81.2 Acute cholecystitis with chronic cholecystitis (principal); K85.91 Acute pancreatitis with uninfected necrosis, unspecified; E44.1 Mild protein-calorie malnutrition; E78.5 Hyperlipidemia, unspecified; N40.1 Benign prostatic hyperplasia with lower urinary tract symptoms; Z86.718 Personal history of other venous thrombosis and embolism; Z88.2 Allergy status to sulfonamides; K66.0 Peritoneal adhesions (postprocedural) (postinfection); Z87.891 Personal history of nicotine dependence; I89.8 Other specified noninfective disorders of lymphatic vessels and lymph nodes; N18.3 Chronic kidney disease, stage 3 (moderate); E83.39 Other disorders of phosphorus metabolism; E87.6 Hypokalemia; E11.21 Type 2 diabetes mellitus with diabetic nephropathy; I12.9 Hypertensive chronic kidney disease with stage 1 through stage 4 chronic kidney disease, or unspecified chronic kidney disease

== ENCOUNTER 2019-02-04 11:07 | Inpatient (IN) ==
[2019-02-04] MEDS ORDERED: ONDANSETRON INJ 2 MG/ML 2 ML VIAL IV PRN (13:55)
[2019-02-04] MEDS ORDERED: ACETAMINOPHEN 325 MG TAB PO PRN (13:55)
[2019-02-04] MEDS ORDERED: HYDROmorphone INJ 0.5 MG/0.5 ML SYR IV PRN (13:57)
[2019-02-04] MEDS ORDERED: PIPERACILL/TAZOBAC CONSULT ACTIVE PRN (13:58)
[2019-02-04] MEDS ORDERED: SODIUM CHLORIDE 0.9% 1000ML 1,000 ML IV SCH (14:00)
[2019-02-04] MEDS ORDERED: PATIENT'S HEIGHT AND/OR WEIGHT NEEDED SCH (14:15)
[2019-02-04] MEDS ORDERED: PIPERACILLIN/TAZOBACTAM 4.5 GM in DEXTROSE 5% 100 ML IV ONE (14:30)
[2019-02-04] MEDS ORDERED: HEPARIN SOD 5,000 UNIT/0.5 ML VIAL SQ SCH (14:30)
[2019-02-04] MEDS: LACTATED RINGER'S 1,000 ML IV SCH ×2 (14:44→17:59)
--- NOTE | 2019-02-04 14:52 | History & Physical Report ---
Date of Service February 04, 2019 Assessment & Plan (1) Septic shock: due to cholangitis and liver abscess blood cultures done at [facility], will need to follow up on them, consider repeat in the AM continue Zosyn IV will need source control, [place] [facility] and ICU recommend ERCP here with biliary stent since liver abscess would be really difficult to access will discuss with Dr. Parker again this evening about ERCP tonight vs tomorrow morning (2) Cholangitis: possible cholangitis given his hypotension, lactic acidosis cover the Zosyn IV for time being follow up on any blood cultures drawn at [facility] ED check MRCP (3) Acute pancreatitis: lipase was 23k at [facility] with inflammation of the pancreatic head h/o cholecystectomy, does not drink heavily will give LR at 250cc/hr, repeat lipase and LFT now, repeat CBC, repeat lactic acid consult [facility] for further recommendations (4) Liver abscess: 3.8 cm in left lobe of liver, likely source of infection would be very difficult to drain due to location, middle to posterior portion of left lobe of liver GI and ICU at [place] recommend ERCP here with biliary stent to stabilize patient (5) Acute renal failure: Cr up at 2.68, due to septic shock mars for accurate UO, low urine output at this time will place on Levophed (6) Lactic acidosis: elevated at 14 at [facility] down to 12 here on admission repeat at 1800 (7) Sepsis with acute hypoxic respiratory failure: ABG with paO2 of 69, saturations in the 90's on oxymask no need for emergent intubation but will monitor closely note that 120 minutes spent with this patient today, includes disussing with [facility] ED physician on transfer call prolonged discussions with Dr. Galicia, Dr. Glynn, Dr. Tacho ramirez and ICU and GI at [facility] multiple conversations with the patient's daughter as well History of Present Illness Chief Complaint: I have not felt well for three weeks Primary Care Provider: Jerome Mckeon 89 yo male with history of CAD, s/p cholecystectomy in 2016, HTN, GERD who was transferred from [facility] ED this morning due to acute pancreatitis. The patient reports that he has been having some low level, intermittent abdominal pain for about three weeks. His appetite has been a little diminished but he has been eating. Moving his bowels regularly, last BM was this morning, small and formed. He has been making urine, has not noticed if it was dark. He remembers the only other time he had bad abdominal pain was in 2016 when he had acute cholecystitis and had a cholecystectomy with Dr. Miller. Since that time his abdomen has not given him problems. About three days ago the mild intermittent abdominal pain that he was experiencing started to get more intense and more constant. Eating made the pain worse so he did not eat much. He had some nausea and vomited this morning. He had some episodes of shaking chills, does not know if he had a true fever, denies any sweats. The pain is epigastric, radiates to his back. Since the pain was not better after three days he finally decided to come to the ED at [facility]. He was found to be hypotensive with SBP in the 70's, lactic acid was reported to be 13, lipase was 23k. CT of the abdomen/pelvis shows inflammation of the pancreatic head and some hypodensities in the left lobe of the liver. He was given several liters of fluids, 2.5 total at last check. His BP is better now at 105 systolic. He has been mentating normally despite the severity of his lab abnormalities. Has a history of CAD with coronary stents placed in the in [place]. No active chest pain or pressure. Feels a little short of breath and has a cough but no respiratory distress Allergies Allergy/AdvReac Type Severity Reaction Status Date / Time allopurinol Allergy Mild PT DOESN'T Verified 05/01/16 16:17 KNOW fexofenadine Allergy Mild RASH Verified 05/01/16 16:16 Sulfa (Sulfonamide Allergy Unknown RASH Verified 05/01/16 16:16 Antibiotics) Home Medications Home Medications Medication Instructions Recorded Confirmed Type ASPIRIN (ASPIRIN CHEWABLE) 81 mg PO DAILY #0 05/01/16 History Atenolol (Tenormin) 25 mg PO DAILY #0 tab 05/01/16 History CRANBERRY-VITAMIN C-VITAMIN E 84 mg PO DAILY #0 05/01/16 History (CRANBERRY) Fish Oil ([place]-3) 1 cap PO BID #0 cap 05/01/16 History MONTELUKAST SODIUM 1 tab PO DAILY 30 Days #30 tab 05/01/16 History Meloxicam (Mobic) 7.5 mg PO DAILY #0 tab 05/01/16 History Tamsulosin HCl 0.4 mg PO QPM #0 05/01/16 History Pantoprazole (Pantoprazole Sodium) 40 mg PO QAM 14 Days #14 tab 05/12/16 Rx Polyethylene (Miralax) 17 g PO DAILY PRN 14 Days #0 05/12/16 Rx Past Med/Surg History Medical History (Updated 02/04/19 @ 18:16 by Segundo Reilly DO) CAD (coronary artery disease) Gangrenous cholecystitis Surgical History (Updated 02/04/19 @ 17:19 by Segundo Reilly DO) History of cholecystectomy History of coronary artery stent placement Family History (Updated 02/04/19 @ 17:20 by Segundo Reilly DO) Other Coronary heart disease Hypertension Social History Preferred Language: Turkish Communication Ability: Effective [place] Required: No Beliefs That Will Affect Care: Mosque Mosque Beliefs: ty Current Living Situation: Alone Other Information That Helps Us Care for You: No Feels Safe at Home: Yes Safety Concerns: Feels Safe At This Time Smoking Status: Former smoker Hx Alcohol Use: Yes Hx Substance Use: No Review of Systems Review of Systems: All systems reviewed & are unremarkable except as noted in HPI & below Constitutional: + fever, + chills, + sweats, + fatigue and + weakness Respiratory: + cough, + dyspnea and + dyspnea on exertion Cardiovascular: no chest pain, no palpitations, no syncope and no edema Gastrointestinal: + abdominal pain, + nausea and + vomiting; no constipation and no diarrhea/loose stools Physical Exam Constitutional: well developed, well nourished, + acute distress and + ill appearing Eyes: + scleral abnormality (icterus), PERRL and EOM intact bilaterally ENMT: external ear and nose normal, oropharynx normal Mouth: + dry oral mucous membranes Neck: trachea midline, no thyromegaly Respiratory: + respiratory distress and + labored breathing Auscultation: + diminished lung sounds (bases) and + rales (bases); no wheezes Cardiovascular: Rate/Rhythm: regular rate and regular rhythm Heart Sounds: normal S1, normal S2 and + murmur Vessels: no JVD Extremities: + abnormal capillary refill and no edema Gastrointestinal (Abdomen): Inspection/Auscultation: + abdomen distended and + hypoactive bowel sounds Percussion/Palpation: + abdomen tender, + guarding, abdomen soft and normal to percussion; no ascites Musculoskeletal: no cyanosis or clubbing, extremities motor strength 5/5 Skin: no rashes, warm and dry Neurologic: patellar DTR's 2+ bilat, sensation intact and PERRL, EOMI, accommodation nl, no face palsy, no dysarthria Psychiatric: A+Ox3, euthymic affect Lymphatic: no cervical or axillary lymphadenopathy Results & Data Vital Signs (Past 12 Hours) Vital Signs Temp Pulse Resp BP Pulse Ox 02/04/19 14:18 36.4 C L 96 H 29 H 105/56 L 94 Laboratory Results Laboratory Results - last 24 hr 02/04/19 02/04/19 02/04/19 14:15 14:15 14:16 WBC 9.57 RBC 3.96 L Hgb 12.5 L Hct 39.1 L MCV 98.7 MCH 31.6 MCHC 32.0 RDW Std Deviation 51.5 H RDW Coeff of Oren 14.5 Plt Count 62 L MPV 11.1 H Absolute Nucleated RBC 0.06 H Nucleated RBC % (auto) 0.6 Neutrophils % (Manual) 49.6 Lymphocytes % (Manual) 17.1 Monocytes % (Manual) 1.8 Eosinophils % (Manual) 5.4 Basophils % (Manual) 0.9 Metamyelocytes % (Man) 17.1 Myelocytes % (Man) 8.1 Neutrophils # (Manual) 4.75 Total Absolute Neuts 4.75 Lymphocytes # (Manual) 1.64 Total Abs Lymphocytes 1.64 Monocytes # (Manual) 0.17 Eosinophils # (Manual) 0.52 H Basophils # (Manual) 0.09 Metamyelocytes # (Man) 1.64 H Myelocytes # (Manual) 0.78 H Blood Smear Review Toxic Vacuolation 2+ Dohle Bodies 1+ Giant Platelets 1+ Echinocytes 1+ Sodium 144 Potassium 3.7 Chloride 109 H Carbon Dioxide 14 L Anion Gap 21.0 H BUN 33 H Creatinine 2.68 H Est Cr Clr Drug Dosing 19.0 Est GFR ( Amer) 23.7 Est GFR (Non-Af Amer) 20.5 BUN/Creatinine Ratio 12.4 Glucose 103 H Lactate 12.0 H* Calcium 8.9 Total Bilirubin 4.5 H AST 851 H ALT 767 H Alkaline Phosphatase 521 H Troponin I 0.520 H* Total Protein 5.4 L Albumin 2.6 L Globulin 2.8 Albumin/Globulin Ratio 0.9 Lipase 14139 H Specimen Hemolysis Diagnostic Findings MR MRCP HISTORY: Mid abdominal pain. pancreatitis, liver hypodensity on CT TECHNIQUE: MRCP of the abdomen was performed without contrast according to standard departmental protocol. COMPARISON STUDY: Abdomen and pelvis CT 05/06/2016. FINDINGS: Mild elevation of the left hemidiaphragm, unchanged. S-shaped scoliosis of the thoracolumbar spine is again noted. Suboptimal evaluation due to motion artifact. Small bilateral pleural effusions. Patchy bibasilar densities favor atelectasis. Cluster of hypointense foci within the left hepatic lobe which measure approximately 3.8 cm. This is difficult to assess due to the motion artifact. The gallbladder is surgically absent. Mild diffuse retroperitoneal and mesenteric edema. Trace perihepatic ascites is noted. Small amount of fluid along the second portion of the duodenum. The common bile but measures up to 13 mm in diameter. No filling defects within the common bile duct. The main pancreatic duct is normal in caliber. IMPRESSION: 1. Difficult evaluation due to the motion artifact. 2. Cluster of hyperintense foci within the left hepatic lobe measuring approximately 3.8 cm. This is difficult to characterize due to the motion artifact but could represent a small amount of pneumobilia. 3. Mild diffuse retroperitoneal and mesenteric edema. There is also trace. Hepatic ascites. Small amount of fluid along the second portion the duodenum may be due to the patient's edematous state. An acute pancreatitis could also a similar appearance in the appropriate clinical setting. However, there is no definite peripancreatic edema. 4. Small bilateral pleural effusions. 5. Mild intrahepatic and extrahepatic bile duct dilatation which may be due to the patient's postcholecystectomy state. Code Status & VTE Plan Code Status conditional: no compressions, wants intubated for respiratory failure, wants central line and procedures VTE Prophylaxis Plan VTE Prophylaxis will be ordered: Yes Critical Care Time Critical Care Time: Yes Total Critical Care Time: 80 Prolonged Care Time Prolonged Care Time: Yes PG Care Time/CCT Total # of Minutes Spent Total Time Spent: 120 Total Time Spent with Patient: Total time spent is greater than 50% in coordination of care (as documented) at patient's floor/unit and/or counseling patient: Prolonged Care Time Prolonged Care Time: Yes Critical Care Time: Yes Total Critical Care Time: 80
[2019-02-04 15:05] LABS: Albumin Globulin Ratio 0.9 (0.9-2); Albumin Level 2.6 gm/dl (3.4-5.0); BUN Creatinine Ratio 12.4 (10-20); Bilirubin,Total 4.5 mg/dl (0.2-1); Calcium 8.9 mg/dl (8.5-10.1); Est GFR (African American) 23.7; Est GFR (Non-African American) 20.5; Globulin 2.8 gm/dl (2.5-4.0); Potassium 3.7 mmol/L (3.5-5.1); Total Protein 5.4 gm/dl (6.4-8.2); Troponin I 0.52 ng/ml (0-0.045)
[2019-02-04 15:42] LABS: Hematocrit (blood only) 39.1 % (42-52); Hemoglobin 12.5 g/dL (14.0-18.0); Mean Corpuscular Hemoglobin 31.6 pg (25-34); Mean Corpuscular Volume 98.7 fL (80-100); Mean Platelet Volume 11.1 fL (7.4-10.4); Nucleated RBC # (auto) 0.06 K/uL (0-0); Nucleated RBC % (auto) 0.6 %; Platelet Count 62 K/uL (130-400); RDW Coefficient of Variation 14.5 % (11.5-14.5); RDW Standard Deviation 51.5 fL (36.4-46.3); Red Blood Count 3.96 M/uL (4.7-6.1); White Blood Count 9.57 K/uL (4.8-10.8)
[2019-02-04 15:55] LABS: ALC (manual) 1.64 K/uL (1.2-3.4); ANC (manual) 4.75 K/uL (1.4-6.5); Basophils # (manual) 0.09 K/uL (0-0.2); Basophils % (manual) 0.9 %; Dohle Bodies 1+; Echinocytes 1+; Eosinophils # (manual) 0.52 K/uL (0-0.5); Eosinophils % (manual) 5.4 %; Giant Platelets 1+; Lymphocytes # (manual) 1.64 K/uL (1.2-3.4); Lymphocytes % (manual) 17.1 %; Metamyelocytes # (manual) 1.64 K/uL (0-0); Metamyelocytes % (manual) 17.1 %; Monocytes # (manual) 0.17 K/uL (0.11-0.59); Monocytes % (manual) 1.8 %; Myelocytes # (manual) 0.78 K/uL (0-0); Myelocytes % (manual) 8.1 %; Neutrophils # (manual) 4.75 K/uL (1.4-6.5); Neutrophils % (manual) 49.6 %; Toxic Vacuolation 2+
--- NOTE | 2019-02-04 16:34 | Magnetic Resonance Report ---
MR MRCP HISTORY: Mid abdominal pain. pancreatitis, liver hypodensity on CT TECHNIQUE: MRCP of the abdomen was performed without contrast according to standard departmental prot ocol. COMPARISON STUDY: Abdomen and pelvis CT 05/06/2016. FINDINGS: Mild elevation of the left hemidiaphragm, unchanged. S-shaped scoliosis of the thoracolumba r spine is again noted. Suboptimal evaluation due to motion artifact. Small bilateral pleural effusio ns. Patchy bibasilar densities favor atelectasis. Cluster of hypointense foci within the left hepatic lobe which measure approximately 3.8 cm. This is difficult to assess due to the motion artifact. The gallbladder is surgically absent. Mild diffuse retroperitoneal and mesenteric edema. Trace perihepat ic ascites is noted. Small amount of fluid along the second portion of the duodenum. The common bile but measures up to 13 mm in diameter. No filling defects within the common bile duct. The main pancre atic duct is normal in caliber. IMPRESSION: 1. Difficult evaluation due to the motion artifact. 2. Cluster of hyperintense foci within the left hepatic lobe measuring approximately 3.8 cm. This is difficult to characterize due to the motion artifact but could represent a small amount of pneumobili a. 3. Mild diffuse retroperitoneal and mesenteric edema. There is also trace. Hepatic ascites. Small koby unt of fluid along the second portion the duodenum may be due to the patient's edematous state. An ac [place] pancreatitis could also a similar appearance in the appropriate clinical setting. However, there is no definite peripancreatic edema. 4. Small bilateral pleural effusions. 5. Mild intrahepatic and extrahepatic bile duct dilatation which may be due to the patient's postchol ecystectomy state. Electronically signed by: Stoney Pérez M.D. 02/04/2019 4:33 PM
[2019-02-04] MEDS ORDERED: ICU PROTOCOL FOR HYPERGLYCEMIA PRN (17:41)
[2019-02-04] MEDS ORDERED: NOREPINEPHRINE BIT INJ 8 MG in DEXTROSE 5% 500 ML IV SCH ×2 (17:45→18:00)
[2019-02-04] MEDS ORDERED: RAPID SEQUENCE INDUCTION BAG ONE (18:05)
[2019-02-04 18:10] LABS: Allen Test Pos (Pos); Base Excess ABG -10.9 mEq/L (-9-1.8); HCO3 ABG 14 mmol/L (19-24); PCO2 ABG 28 mmHg (35-46); PO2 ABG 69 mm/Hg (80-95); pH ABG 7.31 (7.35-7.45)
[2019-02-04 19:17] LABS: INR 1.8 (0.9-1.1); Prothrombin Time 17.6 Seconds (9.0-12.0)
--- NOTE | 2019-02-04 19:30 | Gastrointestinal Consultation ---
Date of Consultation February 04, 2019 History of Present Illness Attending Physician: Segundo Reilly, DO 89 yo M with PMH as below, h/o [place] [address] Miller, now seen for 3 weeks of nausea, abdominal pain that worsened 3-4 days ago. Seen in [place] ER this afternoon with hypotension, lactate of 15; albs show lip 23 K, AST 800's, alk phos 600's, bili 3.5. Transferred to [facility], required 3 liters of LR and low dose pressors with stabilization of hemodynamics and decrease in lipase. Given Zosyn. Repeat labs here show lip 14 K, bili 4.5, ASL/ALT 700/800. MRCP shows possible 4 cm liver abscess, rober dil 13 mm as well as IHDD, no CBD stone. He is mentating, with mild abdominal pain. PE: Ill appearing/Mod distress. He has increased WOB and tachypnea but is still conversant. HEENT: icteric, dry CV: RRR, mild tachy Resp: CTA Abd: soft, markedly tender epigastrium. No rebound or guarding Extrem: Faint radial pulses, extrem cold with cyanosis of fingers, + jaundice Labs, imaging reviewed Liver abscess under dome of diaphragm; per radiologist, not likely to be tehcnically possible to decompress A/P: Gallstone panc, probable cholangitis and liver abscess - Agree with care as provided by ICU MD. Would favor urgent rather than ERCP given age/comorbidities, increased lactate and persistent hypotension. - Risks, benefits, indication for biliary decompression d/w pt and daughter. Allergies Allergy/AdvReac Type Severity Reaction Status Date / Time allopurinol Allergy Mild PT DOESN'T Verified 05/01/16 16:17 KNOW fexofenadine Allergy Mild RASH Verified 05/01/16 16:16 Sulfa (Sulfonamide Allergy Unknown RASH Verified 05/01/16 16:16 Antibiotics) Home Medications Home Medications Medication Instructions Recorded Confirmed Type ASPIRIN (ASPIRIN CHEWABLE) 81 mg PO DAILY #0 05/01/16 History Atenolol (Tenormin) 25 mg PO DAILY #0 tab 05/01/16 History CRANBERRY-VITAMIN C-VITAMIN E 84 mg PO DAILY #0 05/01/16 History (CRANBERRY) Fish Oil ([place]-3) 1 cap PO BID #0 cap 05/01/16 History MONTELUKAST SODIUM 1 tab PO DAILY 30 Days #30 tab 05/01/16 History Meloxicam (Mobic) 7.5 mg PO DAILY #0 tab 05/01/16 History Tamsulosin HCl 0.4 mg PO QPM #0 05/01/16 History Pantoprazole (Pantoprazole Sodium) 40 mg PO QAM 14 Days #14 tab 05/12/16 Rx Polyethylene (Miralax) 17 g PO DAILY PRN 14 Days #0 05/12/16 Rx Patient History Medical History (Updated 02/04/19 @ 18:16 by Segundo Reilly DO) CAD (coronary artery disease) Gangrenous cholecystitis Surgical History (Updated 02/04/19 @ 17:19 by Segundo Reilly DO) History of cholecystectomy History of coronary artery stent placement Family History (Updated 02/04/19 @ 17:20 by Segundo Reilly DO) Other Coronary heart disease Hypertension Social History Preferred Language: Ghanaian Communication Ability: Effective Domain Architect Required: No Beliefs That Will Affect Care: Christianity Christianity Beliefs: ty Current Living Situation: Alone Other Information That Helps Us Care for You: No Feels Safe at Home: Yes Safety Concerns: Feels Safe At This Time Smoking Status: Former smoker Hx Alcohol Use: Yes Hx Substance Use: No Results & Data Vital Signs (Past 12 Hours) Vital Signs Temp Pulse Pulse Resp BP BP Pulse Ox 02/04/19 18:16 100 H 96/59 L 92 02/04/19 18:01 91 H 25 H 93 02/04/19 18:00 36.6 C 99 H 20 82/59 L 93 02/04/19 17:45 99 H 27 H 82/53 L 93 02/04/19 17:34 100 H 19 82/57 L 92 02/04/19 17:32 98 H 16 02/04/19 17:18 97 H 26 H 85/57 L 94 02/04/19 17:15 97 H 29 H 93 02/04/19 17:04 99 H 25 H 79/50 L 92 02/04/19 17:01 96 H 29 H 94 02/04/19 17:00 98 H 24 85/52 L 96 02/04/19 16:59 96 H 32 H 81/50 L 95 02/04/19 16:57 97 H 32 H 86/52 L 95 02/04/19 16:30 98 H 27 H 90 02/04/19 16:17 92 02/04/19 15:00 93 02/04/19 14:30 102 H 19 90 02/04/19 14:18 36.4 C L 96 H 29 H 105/56 L 94 02/04/19 14:02 101 H 29 H 105/56 L 96
[2019-02-04] MEDS ORDERED: VANCOMYCIN CONSULT ACTIVE PRN ×2 (19:35)
--- NOTE | 2019-02-04 19:38 | Procedure Note ---
Procedure Note Date of Service February 04, 2019 Note INTERNAL JUGULAR CENTRAL LINE PROCEDURE NOTE: Procedure: Internal Jugular Central Line Placement Attending: Dr. Ruy Glynn Provider: CATIE Cook Indication: Central Drug Administration Anesthesia:Lidocaine 1% Consent was signed and placed on the chart prior to procedure. Indication, risks, and benefits were explained at length. A time-out was completed verifying correct patient, procedure, site, positioning, and implants(s) or special equipment if applicable. Patients right neck was cleansed and draped in the typical sterile fashion using Chloraprep. The Internal Jugular Vein and Carotid Artery were identified using ultrasound. The superficial tissue was anesthetized using 5 mL of 1% lidocaine without epinephrine under direct visualization with the ultrasound. After adequate anesthetization was achieved, the Internal Jugular vein was cannulated under direct ultrasound guidance using an introducer needle on a syringe. Good venous blood return was maintained prior to removal of syringe from introducer needle. Using Seldinger Technique, a guide wire was advanced through the introducer needle without resistance. The introducer needle was removed and ultrasound images were obtained of the guide wire within the Internal Jugular Vein and saved to the patients medical record. A small incision was made in penetrating fashion at the guide wire insertion site utilizing an 11 blade scalpel. The dilator was advanced to the vessel without resistance. The dilator was exchanged for the triple lumen catheter which was advanced into the vessel without resistance. The guide wire was removed intact from the catheter without issue. Claves were placed on each catheter tip with confirmation of good blood flow from each lumen. Each port was easily flushed with sterile saline. The catheter was placed at 15 cm and sut[address] in place. BioPatch was applied to the catheter and a sterile Tegaderm dressing was applied over the catheter with careful attention to sterility. Patient tolerated procedure well. No immediate complications were met. Post procedure x-ray was completed, placement was appropriate and no pneumothorax was noted. Images obtained are saved for permanent record Procedural Ultrasound Guidance: Procedure Date: 02/04/2019 Indication: Central line insertion Attending: Dr. Ruy Glynn Provider: CATIE Cook Artery AND Vein visualized: Yes Compressible Vein: Yes Guidewire or Short Catheter seen in vein prior to dilation: Yes Line confirmed in Vein with ultrasound: Yes Images obtained are saved for permanent record. Supervising Physician Co-Signing Physician Notes I was personally present and available for all parts of the procedure. Coding
--- NOTE | 2019-02-04 19:38 | Critical Care Consultation ---
Date of Consultation February 04, 2019 Assessment & Plan (1) Cholangitis: Reason Critically Ill: 89-year-old male admitted for sepsis secondary to cholangitis/pancreatitis, now undergoing ERCP. Neuro - [facility] ICU: Negative Cardiac - Septic shockinitial lactate of 15 now down trended to 8 following multiple bolus, will continue to trend -Patient now requiring vasopressors, on levo, CVC and arterial line inserted, goal map greater than 70 -Blood cultures pending, patient started on Vanco and Zosyn -Hold antihypertensive Respiratory - Hypoxic respiratory failurepatient was on 15 L oxygen mask with PO2 of 60, mild compensatory tachypnea -Patient to be intubated in OR for ERCP, will leave intubated overnight -Mild pulmonary congestion on CXR, will hold off on IV fluids for now as patient is in acute renal failure as well GI - Acute cholangitis/pancreatitis/liver abscesspatient had elevated LFTs and lipase with right upper and left upper quadrant tenderness on exam -MRCP shows possible 4 cm liver abscess which is under dome of diaphragm and likely not possible to decompress; biliary dilation of 13 mm; no stone visualized -GI consulted [facility]primary team spoke with endoscopy tech and GI from [facility] concerning the need for IR for abscess drainage and they felt patient would more likely benefit from ERCP -Started on Vanco and Zosyn, see management of septic shock above -KUB showed no evidence of bowel gas pattern or evidence of bowel obstruction -We will trend LFTs RENAL/LYTES - Acute renal failurelikely ATN following hypotension, creatinine 2.68 on admission without baseline -Currently oliguric with urine output less than 30/h despite multiple boluses -We will keep map greater than 70 -We will hold on IV fluids for now as patient currently hypoxic respiratory failure -Avoid nephrotoxins -Consider consult to nephrology in a.m. -Monitor strict I's and O's - Indwelling Foleystrict I's and O's ENDO - No history DM or thyroid disease ICU hyperglycemic protocol HEME - H&H stable Thrombocytopeniaplatelet count 68, likely secondary to sepsis and liver failure -We will obtain DIC labs and peripheral smear, rule out TTP -Monitor routine CBCs and transfuse if indicated ID - MRSA positive Blood cultures pending Zosyn and vancomycin LINES/IV ACCESS - CVC right IJ, left radial A-line, peripheral IVs DVT PROPHYLAXIS - SCDs, hold anticoagulation for procedure I have personally spent 60 minutes of critical care time in the direct management of this patient. This is a life/limb threatening event. This includes time spent evaluating patient, direct bedside care, chart review, placing orders, interpretation of diagnostic studies, discussion with consultants, patient, and family members, as well as other required patient management activities. This time is exclusive of all separately billable procedures, and teaching time and separate from and in addition to any other critical care service time. Thank you for allowing us to participate in the care of this patient. Please refer to my attending physician's documentation for any further recommendations. (2) Acute pancreatitis: (3) Acute renal failure: (4) Lactic acidosis: (5) Sepsis with acute hypoxic respiratory failure: (6) Septic shock: (7) Liver abscess: Supervising Physician Co-Signing Physician Notes I examined the patient with Daniel GUANNP. Patient with severe metabolic acidosis, septic shock secondary to ascending colangitis, thrombocytopenia, oliguric renal failure and now ARDS on mechanical ventilation. Patient needs CRRT and [facility] has accepted the patient for transfer. Awaiting transportation. Continue abx for cholangitis. His is s/p ERCP with larges amount of sludge seen. Stents placed. Continue levophed and vasopressin to maintain MAP >65. He also likely has intrabdominal HTN due to gut edema and pancreatitis. Continue PPI. Prognosis is very poor in this 89 year old gentleman. History of Present Illness Attending Physician: Segundo Reilly DO History of Present Illness Mr. shafer is a 89-year-old male with past medical history CAD s/p PCI, gangrenous cholecystitis with history of cholecystectomy in 2016 who initially presented to an outside hospital with complaints of nausea x3 weeks, and abdominal pain that had worsened the past 3 days and associated vomiting for the past 2 days. Patient was also found to be hypotensive and elevated LFTs, lactate, and lipase. He was transferred to [facility] for further management. MRCP revealed possible 4 cm liver abscess, biliary duct dilation of 13 mm. GI was consulted and the primary team spoke with gastroenterology at [facility] regarding possible IR for abscess drainage. They felt that the patient would benefit from emergent ERCP for which she is now scheduled to undergo tonight. Patient was transferred to ICU following hypotension and required vasopressors. Central line and arterial lines were inserted and the patient is on levo fed. Patient will be intubated for procedure and will be left intubated overnight. Patient currently complains of severe abdominal pain in right upper and left upper quadrants with guarding. Abdomen is distended, semifirm, and tender to light palpation. Patient is also tachypneic and complains of mild shortness of breath. He currently denies headache, dizziness, syncope, chest pain, palpitations, nausea or vomiting, diarrhea. Patient to return to ICU postoperatively for further management. Allergies Allergy/AdvReac Type Severity Reaction Status Date / Time allopurinol Allergy Mild PT DOESN'T Verified 05/01/16 16:17 KNOW fexofenadine Allergy Mild RASH Verified 05/01/16 16:16 Sulfa (Sulfonamide Allergy Unknown RASH Verified 05/01/16 16:16 Antibiotics) Home Medications Home Medications Medication Instructions Recorded Confirmed Type ASPIRIN (ASPIRIN CHEWABLE) 81 mg PO DAILY #0 05/01/16 History Atenolol (Tenormin) 25 mg PO DAILY #0 tab 05/01/16 History CRANBERRY-VITAMIN C-VITAMIN E 84 mg PO DAILY #0 05/01/16 History (CRANBERRY) Fish Oil (Hondo-3) 1 cap PO BID #0 cap 05/01/16 History MONTELUKAST SODIUM 1 tab PO DAILY 30 Days #30 tab 05/01/16 History Meloxicam (Mobic) 7.5 mg PO DAILY #0 tab 05/01/16 History Tamsulosin HCl 0.4 mg PO QPM #0 05/01/16 History Pantoprazole (Pantoprazole Sodium) 40 mg PO QAM 14 Days #14 tab 05/12/16 Rx Polyethylene (Miralax) 17 g PO DAILY PRN 14 Days #0 05/12/16 Rx Patient History Surgical History History of cholecystectomy History of coronary artery stent placement Family History Other Coronary heart disease Hypertension Social History Preferred Language: Armenian Communication Ability: Effective Driver Recruiter Required: No Beliefs That Will Affect Care: Church Church Beliefs: ty Current Living Situation: Alone Other Information That Helps Us Care for You: No Feels Safe at Home: Yes Safety Concerns: Feels Safe At This Time Smoking Status: Former smoker Do You Dip or Chew Tobacco: No ; Hx Alcohol Use: Yes Hx Substance Use: No Review of Systems Review of Systems: All systems reviewed & are unremarkable except as noted in HPI & below Physical Exam Eyes: PERRL, conjunctivae normal, anicteric sclerae Jaundiced sclera ENMT: external ear and nose normal, oropharynx normal Neck: trachea midline, no thyromegaly Respiratory: normal respiratory effort, lungs clear to auscultation Nonlabored breathing, mild tachypnea Cardiovascular: RRR, no murmur, no edema Heart Sounds: normal S1 and normal S2 Vessels: no JVD Extremities: no edema Gastrointestinal (Abdomen): Inspection/Auscultation: + abdomen distended and + abdominal edema; no high-pitched sounds Percussion/Palpation: + abdomen tender Skin: no rashes, warm and dry Neurologic: PERRL, EOMI, accommodation nl, no face palsy, no dysarthria Psychiatric: A+Ox3, euthymic affect Genitourinary: Indwelling Overton catheter present Results & Data Vital Signs (Past 12 Hours) Vital Signs Temp Pulse Pulse Resp BP BP Pulse Ox 02/04/19 18:16 100 H 96/59 L 92 02/04/19 18:01 91 H 25 H 93 02/04/19 18:00 36.6 C 99 H 20 82/59 L 93 02/04/19 17:45 99 H 27 H 82/53 L 93 02/04/19 17:34 100 H 19 82/57 L 92 02/04/19 17:32 98 H 16 02/04/19 17:18 97 H 26 H 85/57 L 94 02/04/19 17:15 97 H 29 H 93 02/04/19 17:04 99 H 25 H 79/50 L 92 02/04/19 17:01 96 H 29 H 94 02/04/19 17:00 98 H 24 85/52 L 96 02/04/19 16:59 96 H 32 H 81/50 L 95 02/04/19 16:57 97 H 32 H 86/52 L 95 02/04/19 16:30 98 H 27 H 90 02/04/19 16:17 92 02/04/19 15:00 93 02/04/19 14:30 102 H 19 90 02/04/19 14:18 36.4 C L 96 H 29 H 105/56 L 94 02/04/19 14:02 101 H 29 H 105/56 L 96 Coding Level of Care Code Critical Care 1st 30-74 mins Diagnoses Cholangitis K83.09 Acute pancreatitis K85.90 Acute renal failure N17.9 Lactic acidosis E87.2 Sepsis with acute hypoxic respiratory failure A41.9; R65.20; J96.01 Septic shock A41.9; R65.21 Liver abscess K75.0
--- NOTE | 2019-02-04 19:38 | Procedure Note ---
Procedure Note Date of Service February 04, 2019 Note ARTERIAL LINE PROCEDURE NOTE: Procedure: Arterial Line Placement Attending: Dr. Ruy Allen Provider: CATIE Cook Indication: Monitoring on Pressors Anesthesia: Lidocaine 1% Consent was signed and placed on the chart prior to procedure. Indication, risks, and benefits were explained at length. A time-out was completed verifying correct patient, procedure, site, positioning, and implant(s) or special equipment if applicable. Allens test was performed to ensure adequate perfusion. Patients left wrist was prepped and draped in the usual sterile fashion. Ultrasound guidance was used to aid needle placement. A 20g Arrow arterial line was introduced into the left radial artery. Catheter was threaded, and the needle was removed with appropriate blood return. Good waveform was observed. The patient tolerated the procedure well. Blood Loss: Minimal Complications: None Procedural Ultrasound Guidance: Procedure Date: 02/04/2019 Indication: Radial arterial line insertion Attending: Dr. Ruy Allen Provider: CATIE Cook Artery Identified: YES Line confirmed in Artery with ultrasound: Yes Complications: NONE Patient tolerated procedure: WELL Supervising Physician Co-Signing Physician Notes I was personally present in the room and available for all parts of the procedure. Coding CPT Codes Tubes, Drains, and Vasc Access - Tubes, Drains, and Vasc Access: [id number] Place Catheter In Artery ([id number]) Tubes, Drains, and Vasc Access - Tubes, Drains, and Vasc Access: [id number] Ultrasound Guidance For Vascular ([id number])
[2019-02-04] MEDS ORDERED: fentaNYL citrate 100 MCG/2 ML VIAL ONE (19:46)
[2019-02-04] MEDS ORDERED: ETOMIDATE 2 MG/ML 20 ML VIAL IV ONE (19:47)
[2019-02-04] MEDS ORDERED: ROCURONIUM BROMIDE 10 MG/ML 5 ML VIAL ONE (19:47)
[2019-02-04] MEDS ORDERED: PHENYLEPHRINE HCL 10 MG/ML VIAL ONE (19:47)
[2019-02-04] MEDS ORDERED: SUCCINYLCHOLINE CHLORIDE 20 MG/ML 10 ML VIAL ONE (19:47)
[2019-02-04] MEDS ORDERED: ALBUMIN HUMAN 5% 12.5 GM/250 ML VIAL IV ONE (19:54)
[2019-02-04] MEDS ORDERED: VANCOMYCIN HCL 1,750 MG in SODIUM CHLORIDE 0.9% 500 ML IV SCH (20:00)
--- NOTE | 2019-02-04 20:03 | Anesthesiology Consultation ---
Date of Service February 04, 2019 Assessment & Plan (1) Encounter for pre-operative examination: Chart Review Chart Review: Acceptable Risk for Surgery and Patient NOT seen in Pre Admission Testing Consults Requested none History Surgery Operation Date: 02/04/19 22:00 Proposed Procedures p Endoscopic Retrograde Cholangiopancreato Lamont Hawkins Height/Weight Height: 5 ft 3 in Weight: 84.2 kg Allergies Allergy/AdvReac Type Severity Reaction Status Date / Time allopurinol Allergy Mild PT DOESN'T Verified 05/01/16 16:17 KNOW fexofenadine Allergy Mild RASH Verified 05/01/16 16:16 Sulfa (Sulfonamide Allergy Unknown RASH Verified 05/01/16 16:16 Antibiotics) Medications Home Medications Medication Instructions Recorded Confirmed Last Taken ASPIRIN (ASPIRIN CHEWABLE) 81 mg PO DAILY #0 05/01/16 Unknown Atenolol (Tenormin) 25 mg PO DAILY #0 tab 05/01/16 Unknown CRANBERRY-VITAMIN C-VITAMIN E 84 mg PO DAILY #0 05/01/16 Unknown (CRANBERRY) Fish Oil (Culver-3) 1 cap PO BID #0 cap 05/01/16 Unknown MONTELUKAST SODIUM 1 tab PO DAILY 30 Days #30 tab 05/01/16 Unknown Meloxicam (Mobic) 7.5 mg PO DAILY #0 tab 05/01/16 Unknown Tamsulosin HCl 0.4 mg PO QPM #0 05/01/16 Unknown Pantoprazole (Pantoprazole Sodium) 40 mg PO QAM 14 Days #14 tab 05/12/16 Unknown Polyethylene (Miralax) 17 g PO DAILY PRN 14 Days #0 05/12/16 Unknown Active Medications Generic Name Dose Route Start Last Admin Trade Name Freq PRN Reason Stop Dose Admin Lactated Ringer's 1,000 mls @ 250 mls/hr 02/04/19 14:45 02/04/19 17:59 Lr IV 03/06/19 14:44 250 mls/hr .Q4H ADAM Administration Norepinephrine Bitartrate 8 mg 508 mls @ 16.764 mls/hr 02/04/19 18:00 02/04/19 17:59 / Dextrose IV 03/06/19 17:59 0.05 mcg/kg/min .Q24H ADAM 16.8 mls/hr Administration Protocol 0.05 MCG/KG/MIN Ondansetron HCl 4 mg 02/04/19 13:55 02/04/19 14:45 Zofran IV 03/06/19 13:54 4 mg Q6H PRN Administration Nausea Past Medical History Medical History (Updated 02/04/19 @ 20:05 by Tra Solis MD) Acute pancreatitis Acute renal failure CAD (coronary artery disease) Gangrenous cholecystitis Lactic acidosis Liver abscess Sepsis with acute hypoxic respiratory failure Septic shock Exercise / Class Metabolic Activity II 4-5 Yardwork/Stairs/Walk up hill Past Family History Family History Other Coronary heart disease Hypertension Past Surgical History Surgical History History of cholecystectomy History of coronary artery stent placement Past Anesthesia History No Hx of Anesthesia Complications and No Family Hx of Anesthesia Complications History of PONV No Hx of PONV and No Hx of Motion Sickness Social History Smoking Status: Former smoker Do You Dip or Chew Tobacco: No Hx Alcohol Use: Yes alcohol intake frequency: a few times a month Hx Substance Use: No Physical Exam Vital Signs Last Vital Signs Temp 36.6 C 02/04/19 18:00 Pulse 100 H 02/04/19 18:16 Resp 25 H 02/04/19 18:01 BP 96/59 L 02/04/19 18:16 Pulse Ox 92 02/04/19 18:16 Testing Laboratory Results 02/04/19 14:15 02/04/19 14:16 PT 17.6 Seconds (9.0-12.0) H 02/04/19 14:18 INR 1.8 (0.9-1.1) H 02/04/19 14:18 02/04/19 17:56 POC Glucose 127 H
--- NOTE | 2019-02-04 20:14 | History & Physical Bridge Note ---
Date of Service February 04, 2019 History & Physical Bridge Note I have examined the patient, reviewed the History & Physical and in the interval since the performance of the History & Physical I have noted the following changes of clinical significance: no changes noted. 1We have discussed the risks of ercp to inlude bleeding, infection, perforation, pain, pancreatitis and failed biliary cannulation
--- NOTE | 2019-02-04 20:17 | XRay Report ---
XR chest 1V portable HISTORY: Central venous line insertion. COMPARISON: Chest 05/04/2016. FINDINGS: Right jugular central venous catheter terminates in the expected location of the proximal S VC. No pneumothorax. Mild cardiomegaly, unchanged. There is mild central pulmonary vascular congestio n without overt edema. Bibasilar densities/effusions persist. IMPRESSION: 1. Right jugular central venous catheter terminates at the proximal SVC. No pneumothorax. 2. No change in the bibasilar densities/effusions. Electronically signed by: Stoney Pérez M.D. 02/04/2019 8:15 PM
--- NOTE | 2019-02-04 20:20 | XRay Report ---
KUB HISTORY: Abdominal distension COMPARISON: Abdomen and pelvis CT 05/06/2016. FINDINGS: The bowel gas pattern is unremarkable. There are no dilated loops of small bowel to suggest an obstruction. No renal calculi. No ureteral calculi. No pneumoperitoneum or pneumatosis. Levoscol iosis and degenerative changes within the lumbar spine. Elevation of the left hemidiaphragm. IMPRESSION: Unremarkable bowel gas pattern. No evidence for bowel obstruction. Electronically signed by: Stoney Pérez M.D. 02/04/2019 8:19 PM
--- NOTE | 2019-02-04 20:21 | Pharmacy Report ---
Pharmacy Abx Initial Consult - Date of Service February 04, 2019 - Pharmacy Dosing Scope Date of Consult: 02/04/19 Consultation requested by: Dr. Goldman Pharmacy is consulted to initiate Vancomycin and Zosyn IV dosing therapy, order appropriate labs and adjust drug dose/frequency. - Subjective The patient is a 89 year old M admitted on 02/04/19 13:56. - Objective Height: 5 ft 3 in Weight: 84.2 kg Vital Signs (Past 12hrs): Vital Signs Temp Pulse Pulse Resp BP BP Pulse Ox 02/04/19 18:16 100 H 96/59 L 92 02/04/19 18:01 91 H 25 H 93 02/04/19 18:00 36.6 C 99 H 20 82/59 L 93 02/04/19 17:45 99 H 27 H 82/53 L 93 02/04/19 17:34 100 H 19 82/57 L 92 02/04/19 17:32 98 H 16 02/04/19 17:18 97 H 26 H 85/57 L 94 02/04/19 17:15 97 H 29 H 93 02/04/19 17:04 99 H 25 H 79/50 L 92 02/04/19 17:01 96 H 29 H 94 02/04/19 17:00 98 H 24 85/52 L 96 02/04/19 16:59 96 H 32 H 81/50 L 95 02/04/19 16:57 97 H 32 H 86/52 L 95 02/04/19 16:30 98 H 27 H 90 02/04/19 16:17 92 02/04/19 15:00 93 02/04/19 14:30 102 H 19 90 02/04/19 14:18 36.4 C L 96 H 29 H 105/56 L 94 02/04/19 14:02 101 H 29 H 105/56 L 96 Lab Results (24hrs): Laboratory Tests (24 Hours) 02/04/19 02/04/19 14:16 14:15 WBC 9.57 Creatinine 2.68 H Est Cr Clr Drug Dosing 19.0 Laboratory Tests 02/04/19 17:35 Nasal Screen MRSA (PCR) Positive A - Risk Factors for Resistance * Unknown risk factors - Assessment & Plan Assessment 89 year old M direct admit from [facility] on 02/04/19 for acute pancreatitis * PMHx for CAD, HTN and cholecystitis s/p cholecystectomy * At [place] ED, patient found to be hypotensive into the 70s, lactic acid 13 and lipase of 23K * BP responded to aggressive fluid resuscitation climbing to 105 * Abdominal CT shows cholangitis with possible liver abscess * Upon arrival to [facility], patient afebrile, tachycardic, hypotensive, WBCs 9.5K, SCr/eCrCl 2.68/19 (baseline unknown), lactate 12 --> 8.3, lipase 14K * Patient started on IV zosyn upon admission * Patient continued to be hypotensive requiring admission to ICU * MRSA Nasal Swab positive leading to initiation of vancomycin, given severity of illness will give one dose * Given patient's current renal function and nephrotoxicity associated with concurrent vancomycin and zosyn use, would recommend de-escalation as soon as possible Plan IV Vancomycin and Zosyn for treatment of Cholangitis Vancomycin IV * Estimated PK Parameters: Vd 0.6 L/kg, Jacob 0.020 hr-1, t1/2 34 hrs * Loading dose: 1750 mg (21 mg/kg) * Maintenance dose: not ordered given current renal function * Goal trough level for cholangitis: 15 to 20 mcg/mL * No level ordered at this time Piperacillin/tazobactam * 4.5 g bolus administered over 30 minutes, then 3.375 g IV extended infusion every 12 hours for CrCl 20 mL/min or less. Pharmacy will continue to follow and will adjust dose/frequency as necessary. Thank you.
[2019-02-04] MEDS ORDERED: INDOMETHACIN 50 MG SUPP PR STA (20:24)
--- NOTE | 2019-02-04 21:02 | Post Operative Brief Note ---
Immediate Post Op Note v1 Date of Surgery February 04, 2019 Pre & Post Diagnosis Operation Date: 02/04/19 22:00 Pre-Op Diagnosis: cholangitis Post-Op Diagnosis cholangitis I identified the patient and participated in the time-out.: Yes Procedure Operation Date: 02/04/19 22:00 Actual Procedures p Endoscopic Retrograde Cholangiopancreatograpy(Not Applicable) - Maria Elena Hawkins Surgeon Maria Elena Hawkins Hand Worker none Estimated Blood Loss 10 Findings Consistent with Post-Op Diagnosis Drains Dee Catheter (PATIENT ARRIVED TO OR WITH DEE CATH IN PLACE)
--- NOTE | 2019-02-04 21:18 | GI REPORT ---
Patient Name: Valeriano Jolley Procedure Date: 02/04/2019 8:23 PM Date of : 1930 Admit Type: Inpatient Age: 89 Gender: Male Attending MD: Maria Elena Hawkins DO Procedure: ERCP Providers: Maria Elena Hawkins DO Referring MD: Campbell Cortez MD Indications: Abdominal pain of suspected biliary origin, Suspected ascending cholangitis, Elevated liver enzymes Medicines: General Anesthesia Complications: No immediate complications. Estimated blood loss: Minimal. Estimated Blood Loss: Estimated blood loss: 10 mL requiring treatment with epinephrine. Procedure: Pre-Anesthesia Assessment: - Prior to the procedure, a History and Physical was performed, and patient medications, allergies and sensitivities were reviewed. The patient's tolerance of previous anesthesia was reviewed. - The risks and benefits of the procedure and the sedation options and risks were discussed with the patient. All questions were answered and informed consent was obtained from the patient and his daughter. - Patient identification and proposed procedure were verified prior to the procedure by the physician, the nurse and the service center representative. The procedure was verified in the procedure room. - Pre-procedure physical examination revealed no contraindications to sedation. - ASA Grade Assessment: V - A moribund patient who is not expected to survive without the operation. - After reviewing the risks and benefits, the patient was deemed in satisfactory condition to undergo the procedure. - The anesthesia plan was to use general anesthesia. - Immediately prior to administration of medications, the patient was re-assessed for adequacy to receive sedatives. - The heart rate, respiratory rate, oxygen saturations, blood pressure, adequacy of pulmonary ventilation, and response to care were monitored throughout the procedure. - The physical status of the patient was re-assessed after the procedure. After obtaining informed consent, the scope was passed under direct vision. Throughout the procedure, the patient's blood pressure, pulse, and oxygen saturations were monitored continuously. The Scope was introduced through the mouth, and advanced to the duodenum and used to inject contrast into the bile duct. The ERCP was accomplished without difficulty. The patient tolerated the procedure well. Findings: A store director film of the abdomen was obtained. Surgical clips, consistent with a previous cholecystectomy, were seen in the area of the right upper quadrant of the abdomen. The esophagus was successfully intubated under direct vision without detailed examination of the pharynx, larynx, and associated structures, and upper GI tract. The upper GI tract was grossly normal. The major papilla was located partially within a diverticulum. The major papilla contained an impacted stone. The bile duct was deeply cannulated with the short-nosed traction sphincterotome and 0.035 in Angled Acrobat 2 guidewire during the first attempt. Contrast was injected. I personally interpreted the bile duct images. Contrast extended to the hepatic ducts. The main bile duct was moderately dilated and diffusely dilated, with a stone causing an obstruction. The largest diameter was 12 mm. A small biliary sphincterotomy was made with a monofilament Fusion OMNI sphincterotome using ERBE electrocautery. Minor bleeding from the sphincterotomy was successfully treated. The biliary tree was swept with a 15 mm balloon starting at the bifurcation. Three large green pigmented stones were removed. No stones remained. Pus was swept from the duct. Sludge was swept from the duct. Two 7 Fr by 7 cm biliary stents with a full external pigtail and a full internal pigtail were placed 7 cm into the common bile duct. Bile flowed through the stents. The stents were in good position. Area was successfully injected with 6 mL of a 1:10,000 solution of epinephrine with a Bingham Catheter through the ERCP scope for hemostasis. The total fluoroscopy exposure time was 38 seconds. The endoscope was withdrawn from the patient. Indomethacin 100 mg was given via suppository to decrease the risk of post-ERCP pancreatitis (PEP). Impression: - The major papilla was located partially within a diverticulum. - An impacted stone was seen in the major papilla. - Choledocholithiasis and cholangitis was found. Complete removal was accomplished by biliary sphincterotomy and balloon extraction. - A small biliary sphincterotomy was performed. - Two biliary stents were placed into the common bile duct. - Indomethacin given to decrease risk of post-ERCP pancreatitis. Recommendation: - Return patient to ICU for ongoing care. - Use broad spectrum antibiotics for 2 weeks. - Repeat ERCP in 6 weeks to remove stent. Maria Elena Hawkins D.O. Maria Elena Hawkins DO 02/04/2019 9:17:44 PM This report has been signed electronically. Note Initiated On: 02/04/2019 8:23 PM Number of Addenda: 0 I attest to the content of the Intraoperative Record and orders documented therein, exceptions below {[id number]}
--- NOTE | 2019-02-04 21:20 | Communication Note ---
Date of Service: February 04, 2019 The patient underwent emergency ERCP this evening. We found several impacted stones and evidence of cholangitis. 2 biliary stents were placed, there was some bleeding during the procedure given his low platelet count and elevated INR therefore the sphincterotomy site was treated with a small amount of epinephrine Recommendations Continue broad-spectrum intravenous antibiotics Please give a dose of vitamin K N.p.o. Consider ID consultation given the 4 cm liver abscess If no improvement may need to consider referral to tertiary center for percuta neous drainage of the liver abscess Repeat ERCP in 6 to 8 weeks
--- NOTE | 2019-02-04 21:23 | Fluoroscopy Report ---
[place] ERCP biliary ductal CLINICAL HISTORY: ERCP IN OR COMPARISON STUDY: MRCP 02/04/2019. FLUOROSCOPY TIME: 22 seconds. FINDINGS: The endoscope is seen at the second portion of the duodenum and the ampulla is cannulated. Contrast is injected into the distended common bile duct. This is followed by placement of a common b ile duct stent. This appears in good position. IMPRESSION: Fluoroscopy provided for ERCP with common bile duct stent placement. Electronically signed by: Stoney Pérez M.D. 02/04/2019 9:22 PM
[2019-02-04] MEDS ORDERED: PROPOFOL 1,000 MG/100 ML VIAL IV SCH (21:24)
[2019-02-04] MEDS ORDERED: fentaNYL citrate 100 MCG/2 ML VIAL IV PRN (21:24)
[2019-02-04] MEDS ORDERED: fentaNYL DRIP 1,250 MCG/250 ML BAG IV SCH (21:24)
[2019-02-04] MEDS ORDERED: PROPOFOL IV EMULSION 10 MG/ML 100 ML VIAL IV ONE (21:30)
[2019-02-04] MEDS ORDERED: VASOPRESSIN 20 UNIT/ML VIAL ONE (21:55)
[2019-02-04] MEDS ORDERED: PIPERACILLIN/TAZOBACTAM 3.375 GM in DEXTROSE 5% 100 ML IV SCH (22:00)
[2019-02-04 22:05] LABS: iSTAT Arterial Blood Gas HCO3 13 meg/L (19-24); iSTAT Arterial Blood Gas pCO2 36 mmHg (35-46); iSTAT Arterial Blood Gas pH 7.18 (7.35-7.45); iSTAT Arterial Blood Gas pO2 71 mmHg (80-95); iSTAT Carbon Dioxide 14 mEq/l (24-31); iSTAT FiO2 100 %; iSTAT Site Art Line
--- NOTE | 2019-02-04 22:12 | Anesthesiology Progress Note ---
Date of Service February 04, 2019 Anesthesia Post Procedure Vital Signs Vital Signs: Temp Pulse Pulse Resp BP BP Pulse Ox 02/04/19 21:45 36.7 C 91 H 28 H 138/74 02/04/19 21:41 89 24 02/04/19 21:40 87 24 159/89 H 02/04/19 21:37 99 H 24 02/04/19 21:36 103 H 24 173/127 H 02/04/19 21:35 103 H 24 184/118 H 02/04/19 21:31 121 H 24 02/04/19 21:30 111 H 24 217/156 H 02/04/19 21:28 114 H 24 02/04/19 21:27 113 H 24 220/152 H 02/04/19 21:25 108 H 24 216/141 H 02/04/19 21:21 101 H 24 02/04/19 21:20 36.6 C 101 H 24 159/117 H 02/04/19 18:16 100 H 96/59 L 92 02/04/19 18:01 91 H 25 H 93 02/04/19 18:00 36.6 C 99 H 20 82/59 L 93 02/04/19 17:45 99 H 27 H 82/53 L 93 02/04/19 17:34 100 H 19 82/57 L 92 02/04/19 17:32 98 H 16 02/04/19 17:18 97 H 26 H 85/57 L 94 02/04/19 17:15 97 H 29 H 93 02/04/19 17:04 99 H 25 H 79/50 L 92 02/04/19 17:01 96 H 29 H 94 02/04/19 17:00 98 H 24 85/52 L 96 02/04/19 16:59 96 H 32 H 81/50 L 95 02/04/19 16:57 97 H 32 H 86/52 L 95 02/04/19 16:30 98 H 27 H 90 02/04/19 16:17 92 02/04/19 15:00 93 02/04/19 14:30 102 H 19 90 02/04/19 14:18 36.4 C L 96 H 29 H 105/56 L 94 02/04/19 14:02 101 H 29 H 105/56 L 96 Pain Intensity Left Lower Abdomen: Pain Intensity: 0 Transfer of Care Handoff Completed per policy Notes Mental Status: see notes below Patient Amnestic to Procedure: Yes Nausea / Vomiting: adequately controlled Pain: adequately controlled Airway Patency, RR, SpO2: see Notes below BP & HR: see Notes below Anesthetic Complications: see Notes below Notes: Patient brought back to ICU on monitor, intubated and ventialted via ETT/ambu bag with supplemental oxygen. Patient's color noted to be mottled and extremities remained blue/purple in color. BP treated on way to ICU with 3 units vasopression. Patient hypertensive then in ICU so levophed turned off. ABG done as peripheral saturations not reliably picking up given his mottled color. PO2 in 70's (were in 60's preop). Patient placed on the ventilator by respiratory therapy. ICU staff present at bedside and full report given. Patient in very guarded condition at time of sign out. CXR being done when I left the room.
--- NOTE | 2019-02-04 22:35 | XRay Report ---
XR chest 1V portable HISTORY: intubation COMPARISON: Chest 02/04/2019. FINDINGS: Right jugular central venous catheter terminates in the expected location of the SVC. No pn eumothorax. Bibasilar densities/effusions persist. The heart remains mildly enlarged. There is mild c entral pulmonary vascular congestion without overt edema. Endotracheal tube terminates approximately 7 mm from the salud. This should be pulled back by approximately 2 cm. IMPRESSION: 1. The endotracheal tube terminates 7 mm from the salud. This should be pulled back by approximately 2 cm. 2. Mild pulmonary vascular congestion without overt edema. This has progressed. 2. Bibasilar effusions/densities persist. 4. These findings were called/faxed to the referring physician following dictation. Electronically signed by: Stoney Pérez M.D. 02/04/2019 10:34 PM
[2019-02-04 22:41] LABS: Fibrinogen 101 mg/dl (184-400); Partial Thromboplastin Ratio 1.9
[2019-02-04 23:05] LABS: D Dimer > 35200 ug/L FEU (0-500); Partial Thromboplastin Time 51.7 Seconds (21.0-31.0)
[2019-02-04 23:25] LABS: iSTAT Arterial Blood Gas HCO3 12 meg/L (19-24); iSTAT Arterial Blood Gas pCO2 36 mmHg (35-46); iSTAT Arterial Blood Gas pH 7.12 (7.35-7.45); iSTAT Arterial Blood Gas pO2 65 mmHg (80-95); iSTAT Carbon Dioxide 13 mEq/l (24-31); iSTAT FiO2 80 %; iSTAT Site Art Line
[2019-02-04] MEDS ORDERED: SODIUM BICARB 8.4% INJ 50 MEQ/50 ML SYR IV STA (23:26)
[2019-02-04] MEDS ORDERED: SODIUM BICARB 8.4% INJ 50 MEQ/50 ML SYR ONE (23:26)
--- NOTE | 2019-02-04 23:38 | Communication Note ---
Date of Service: February 04, 2019 Patient returned from the OR intubated. Current ventilator settings AC VC 28/350/10/100%, ABG showed patient is severely hypoxic and metabolic acidosis. Started on bicarb drip. Following ARDS net protocol. Patient also found to be in DIC, no signs of active bleeding at this time, will transfuse with cryo. We will continue to monitor routine CBCs to assess for bleeding closely. Patient remains critically ill with little to no urine output and increasing requirements vasopressors and oxygen requirements. Will talk to nephrology concerning recommendations in regards to CRRT as patient is currently volume overloaded with metabolic acidosis and is requiring additional fluids for treatment without urine output. We will also talk to patient's daughter regarding CODE STATUS at this time. I have personally spent 45 minutes of critical care time in the direct management of this patient. This is a life/limb threatening event. This includes time spent evaluating patient, direct bedside care, chart review, placing orders, interpretation of diagnostic studies, discussion with consultants, patient, and family members, as well as other required patient management activities. This time is exclusive of all separately billable procedures, and teaching time and separate from and in addition to any other critical care service time. Thank you for allowing us to participate in the care of this patient. Please refer to my attending physician's documentation for any further recommendations.
[2019-02-04 23:40] LABS: Creatine Kinase 5945 U/L (39-308)
[2019-02-04 23:45] LABS: Hematocrit (blood only) 33.5 % (42-52); Hemoglobin 11.1 g/dL (14.0-18.0); Mean Corpuscular Hemoglobin 32.4 pg (25-34); Mean Corpuscular Hgb Conc 33.1 g/dL (32-36); Mean Corpuscular Volume 97.7 fL (80-100); Nucleated RBC # (auto) 0.06 K/uL (0-0); Nucleated RBC % (auto) 0.4 %; RDW Coefficient of Variation 14.9 % (11.5-14.5); Red Blood Count 3.43 M/uL (4.7-6.1); White Blood Count 16.77 K/uL (4.8-10.8)
[2019-02-04] MEDS ORDERED: SODIUM BICARBONATE 8.4% 100 MEQ in WATER, STERILE 1,000 ML IV SCH (23:45)
[2019-02-04 23:54] LABS: Mean Platelet Volume 11.9 fL (7.4-10.4); Platelet Count 47 K/uL (130-400)
[2019-02-05] MEDS ORDERED: FUROSEMIDE 80 MG in SYRINGE 0 ML IV ONE
[2019-02-05 00:10] LABS: BUN Creatinine Ratio 14.2 (10-20); Calcium 7.7 mg/dl (8.5-10.1); Creatinine Clr Calc Pharmacy 16.8 ml/min; Est GFR (African American) 20.9; Est GFR (Non-African American) 18.1; Potassium 4.1 mmol/L (3.5-5.1)
[2019-02-05] MEDS ORDERED: FUROSEMIDE 120 MG in SYRINGE 0 ML IV ONE (00:30)
[2019-02-05 00:52] LABS: ALC (manual) 2.93 K/uL (1.2-3.4); ANC (manual) 11.64 K/uL (1.4-6.5); Basophils # (manual) 0.15 K/uL (0-0.2); Basophils % (manual) 0.9 %; Dohle Bodies 1+; Echinocytes 1+; Eosinophils # (manual) 0.59 K/uL (0-0.5); Eosinophils % (manual) 3.5 %; Lymphocytes # (manual) 2.93 K/uL (1.2-3.4); Lymphocytes % (manual) 17.5 %; Metamyelocytes # (manual) 1.02 K/uL (0-0); Metamyelocytes % (manual) 6.1 %; Monocytes # (manual) 0.44 K/uL (0.11-0.59); Monocytes % (manual) 2.6 %; Neutrophils # (manual) 11.64 K/uL (1.4-6.5); Neutrophils % (manual) 69.4 %; Toxic Vacuolation 2+
--- NOTE | 2019-02-05 01:27 | Communication Note ---
Date of Service: February 05, 2019 Patient remains critically ill and has required increasing ventilator support and vasopressor support following the ERCP last night. I have spoken with the patient's daughter who at this point would like the patient to remain a full code for the time being. She is also open to transfer the patient if needed. I then spoke with [facility] document examiner who recommended either slow dialysis or CRRT for the patient giving volume overload and the setting of acute renal failure and hypoxic respiratory failure and metabolic acidosis and sepsis. As of now we cannot perform dialysis overnight and we do not have CRRT at this facility. I then called [facility] and spoke with the conference center manager, Dr. Anthony, regarding the patient's possible benefit for CRRT. I explained the patient's course in detail and he felt that the patient would in fact benefit from CRRT. At this point the patient has been accepted to [facility] in [place] and will be life flighted as soon as possible. I have personally spent 60 minutes of critical care time in the direct management of this patient. This is a life/limb threatening event. This includes time spent evaluating patient, direct bedside care, chart review, placing orders, interpretation of diagnostic studies, discussion with consultants, patient, and family members, as well as other required patient management activities. This time is exclusive of all separately billable procedures, and teaching time and separate from and in addition to any other critical care service time. Thank you for allowing us to participate in the care of this patient. Please refer to my attending physician's documentation for any further recommendations.
[2019-02-05] MEDS: VASOPRESSIN 20 UNITS in 0.9 % SODIUM CHLORIDE 100 ML IV SCH ×2 (01:41→07:51)
[2019-02-05] MEDS: NOREPINEPHRINE BIT INJ 16 MG in DEXTROSE 5% 500 ML IV SCH ×2 (02:48→07:52)
[2019-02-05 04:46] LABS: Hematocrit (blood only) 38.1 % (42-52); Hemoglobin 12.3 g/dL (14.0-18.0); Mean Corpuscular Hgb Conc 32.3 g/dL (32-36); Mean Corpuscular Volume 99.2 fL (80-100); Nucleated RBC # (auto) 0.07 K/uL (0-0); Nucleated RBC % (auto) 0.5 %; RDW Coefficient of Variation 14.8 % (11.5-14.5); RDW Standard Deviation 53.5 fL (36.4-46.3); Red Blood Count 3.84 M/uL (4.7-6.1); White Blood Count 14.33 K/uL (4.8-10.8)
[2019-02-05 04:57] LABS: Mean Platelet Volume 11.5 fL (7.4-10.4); Platelet Count 33 K/uL (130-400)
[2019-02-05 05:00] LABS: INR 1.7 (0.9-1.1); Prothrombin Time 17.1 Seconds (9.0-12.0)
[2019-02-05 05:21] LABS: Bilirubin Direct 6.3 mg/dl (0-0.2)
[2019-02-05 05:22] LABS: Albumin Level 2.4 gm/dl (3.4-5.0); Bilirubin,Total 7.6 mg/dl (0.2-1); Calcium 7.6 mg/dl (8.5-10.1); Creatinine Clr Calc Pharmacy 15.1 ml/min; Est GFR (African American) 18.4; Est GFR (Non-African American) 15.9; Potassium 4.4 mmol/L (3.5-5.1); Total Protein 5.1 gm/dl (6.4-8.2)
[2019-02-05 05:48] LABS: iSTAT Arterial Blood Gas HCO3 16 meg/L (19-24); iSTAT Arterial Blood Gas pCO2 37 mmHg (35-46); iSTAT Arterial Blood Gas pH 7.24 (7.35-7.45); iSTAT Arterial Blood Gas pO2 74 mmHg (80-95); iSTAT Carbon Dioxide 17 mEq/l (24-31); iSTAT FiO2 100 %; iSTAT Site Art Line
[2019-02-05 06:23] LABS: ALC (manual) 2.21 K/uL (1.2-3.4); ANC (manual) 10.26 K/uL (1.4-6.5); Dohle Bodies Occasional; Echinocytes 1+; Eosinophils # (manual) 0.47 K/uL (0-0.5); Eosinophils % (manual) 3.3 %; Lymphocytes # (manual) 2.21 K/uL (1.2-3.4); Lymphocytes % (manual) 15.4 %; Metamyelocytes # (manual) 0.93 K/uL (0-0); Metamyelocytes % (manual) 6.5 %; Monocytes # (manual) 0.23 K/uL (0.11-0.59); Monocytes % (manual) 1.6 %; Myelocytes # (manual) 0.23 K/uL (0-0); Myelocytes % (manual) 1.6 %; Neutrophils # (manual) 10.26 K/uL (1.4-6.5); Neutrophils % (manual) 71.6 %; Toxic Vacuolation 2+
[2019-02-05] MEDS ORDERED: FUROSEMIDE 120 MG in SYRINGE 0 ML IV STA (06:31)
--- NOTE | 2019-02-05 08:50 | Discharge Summary ---
Date of Service February 05, 2019 Admission HPI Per Admitting Provider 89 yo male with history of CAD, s/p cholecystectomy in 2016, HTN, GERD who was transferred from [place] ED this morning due to acute pancreatitis. The patient reports that he has been having some low level, intermittent abdominal pain for about three weeks. His appetite has been a little diminished but he has been eating. Moving his bowels regularly, last BM was this morning, small and formed. He has been making urine, has not noticed if it was dark. He remembers the only other time he had bad abdominal pain was in 2016 when he had acute cholecystitis and had a cholecystectomy with Dr. Miller. Since that time his abdomen has not given him problems. About three days ago the mild intermittent abdominal pain that he was experiencing started to get more intense and more constant. Eating made the pain worse so he did not eat much. He had some nausea and vomited this morning. He had some episodes of shaking chills, does not know if he had a true fever, denies any sweats. The pain is epigastric, radiates to his back. Since the pain was not better after three days he finally decided to come to the ED at [place]. He was found to be hypotensive with SBP in the 70's, lactic acid was reported to be 13, lipase was 23k. CT of the abdomen/pelvis shows inflammation of the pancreatic head and some hypodensities in the left lobe of the liver. He was given several liters of fluids, 2.5 total at last check. His BP is better now at 105 systolic. He has been mentating normally despite the severity of his lab abnormalities. Has a history of CAD with coronary stents placed in the in [place]. No active chest pain or pressure. Feels a little short of breath and has a cough but no respiratory distress Principal Diagnosis Septic shock due to cholangitis Discharge Exam Constitutional well developed, well nourished, + ill appearing and + mechanically ventilated (sedated) Eyes + scleral abnormality (icterus), PERRL and EOM intact bilaterally ENMT external ear and nose normal, oropharynx normal Mouth: + dry oral mucous membranes Neck trachea midline, no thyromegaly Respiratory normal respiratory effort (ventilated) Auscultation: + diminished lung sounds (bases) and + rales (bases); no wheezes Cardiovascular Rate/Rhythm: regular rate and regular rhythm Heart Sounds: normal S1, normal S2 and + murmur Vessels: no JVD Extremities: + abnormal capillary refill and no edema Gastrointestinal (Abdomen) Inspection/Auscultation: + abdomen distended and + hypoactive bowel sounds Percussion/Palpation: + abdomen tender, + guarding, abdomen soft and normal to percussion; no ascites Musculoskeletal no cyanosis or clubbing, extremities motor strength 5/5 Skin no rashes, warm and dry + mottling (toes, fingers, ears) Neurologic patellar DTR's 2+ bilat, sensation intact and PERRL, EOMI, accommodation nl, no face palsy, no dysarthria Psychiatric A+Ox3, euthymic affect Lymphatic no cervical or axillary lymphadenopathy Discharge Data Allergies Allergy/AdvReac Type Severity Reaction Status Date / Time allopurinol Allergy Mild PT DOESN'T Verified 05/01/16 16:17 KNOW fexofenadine Allergy Mild RASH Verified 05/01/16 16:16 Sulfa (Sulfonamide Allergy Unknown RASH Verified 05/01/16 16:16 Antibiotics) Consultations 02/04/19 13:57 Consult Case Management - Discharge Planning Routine 02/04/19 14:34 Consult Gastroenterology Routine 02/04/19 17:41 Consult Case Management - Discharge Planning Routine 02/04/19 22:19 Consult Brass Polisher Routine 02/05/19 01:31 Burn CD for patient Stat Procedures Performed Operation Date: 02/04/19 22:00 Actual Procedures p Endoscopic Retrograde Cholangiopancreatograpy(Not Applicable) - Maria Elena Hawkins Ordered Studies 02/04/19 14:33 MR MRCP Urgent 02/04/19 17:47 US point of care ultrasound Routine 02/04/19 20:02 [place] ERCP biliary ductal Routine Hospital Course (1) Septic shock: due to cholangitis and liver abscess blood cultures done at [place] ED where he first presented, repeat blood cultures drawn here at [facility] morning of 02/05 continue Zosyn IV s/p ERCP with stone removal, biliary stent placed evening of 02/[address] Hawkins currently on Vasopressin and Levophed for MAP 65, A line in place for monitoring Diprovan and Fentanyl for sedation transfer to [facility], will possibly need IR to liver abscess for further source control (2) Cholangitis: due to impacted stone at Ampulla of Vater s/p ERCP with stone removal and biliary stent on 02/04 leukocytosis, in septic shock on two pressors continue Zosyn IV, blood cultures drawn (3) Acute pancreatitis: lipase was 23k at [facility] with inflammation of the pancreatic head treated initially with aggressive IV fluids, LR at 250cc/hr lipase trending down quickly after stone removal and biliary stent placement (4) Liver abscess: 3.8 cm in left lobe of liver, likely a result of cholangitis would be very difficult to drain due to location, middle to posterior portion of left lobe of liver GI and ICU at [place] recommend ERCP here with biliary stent to stabilize luis armando ent will now transfer to [place], images copied (5) Acute renal failure: Cr up at 2.68 on admission, due to septic shock mars for accurate UO, low urine output at this time Cr trending upward this AM, > 3 likely ATN with septic shock so the rise in Cr is expected (6) Lactic acidosis: elevated at 14 at [facility] down to 12 here on admission down to 7 this morning, improving with adequate perfusion, vasopressors (7) Sepsis with acute hypoxic respiratory failure: ABG with paO2 of 69, saturations in the 90's on oxymask intubated in the evening of 02/04 doing well on ventilator, no obvious lung pathology (8) DIC (disseminated intravascular coagulation): all clotting factors elevated, low platelets treat the cholangitis and septic shock Total Time Total Time Spent Total Time Spent (In Minutes): 45 minutes Total Time Includes: Examination of the Patient, Discharge Planning, Medication Reconciliation and Communication With Other Providers Discharge Plan Discharge Items Patient Disposition: Transfer Acute Care Hospital Reason For Visit: ACUTE PANCREATITIS Discharge Diagnosis: Septic shock Cholangitis with choledocholithiasis, s/p ERCP with stone removal and biliary stent [place] Pancreatitis DIC Condition on Discharge: Critical Goals: transfer to [place] for tertiary services Activity: As commented below Activity Comment: bedrest Non-emergency contact: Primary Care Provider Call non-emergency contact if: you have any medication questions Follow-up/Referrals: Jerome Mckeon [Primary Care Provider] - Diet: Clear liquid Diet Comment: NPO Addtl Attending Provider Instructions: transfer to [place] Pending Studies at Discharge: No Stand-Alone Forms: My [facility] Skilled Items Patient informed of condition?: Yes DNR: No Discharge Level of Care: Other Communicable Disease: No Discharge Prognosis: Deteriorating Lines: PICC Urinary Catheter: Yes Medications and DC Order Prescriptions: Continued Fish Oil ([place]-3) 1 EA capsule 1 cap PO BID Qty: 0 RF: 0 CRANBERRY-VITAMIN C-VITAMIN E (CRANBERRY) 1 CAP capsule 84 mg PO DAILY Qty: 0 RF: 0 ASPIRIN (ASPIRIN CHEWABLE) 81 MG CHEWABLE TAB 81 mg PO DAILY Qty: 0 RF: 0 Atenolol (Tenormin) 25 MG tablet 25 mg PO DAILY Qty: 0 RF: 0 MONTELUKAST SODIUM 10 MG tablet 1 tab PO DAILY 30 Days Qty: 30 RF: 5 Meloxicam (Mobic) 7.5 MG tablet 7.5 mg PO DAILY Qty: 0 RF: 0 Tamsulosin HCl 0.4 MG capsule 0.4 mg PO QPM Qty: 0 RF: 0 Pantoprazole (Pantoprazole Sodium) 40 MG tablet 40 mg PO QAM 14 Days Qty: 14 RF: 0 Polyethylene (Miralax) 17 GM POW 17 g PO DAILY PRN (Reason: Constipation) 14 Days Qty: 0 RF: 0 Discharge Orders: Discharge Order (Routine); Ordered 02/05/19 Ordered By: Segundo Reilly Admission Data Admit Date/Time: 02/04/19 13:56 Attending Provider: Segundo Reilly Admit Provider: Segundo Reilly Primary Care Provider: Jerome Mckeon Other Providers: Idalmis Reilly ; Kasandra Bach ; Clif Hitchcock ; Elinor Johnson ; Carlitos Mcmanus ; Maria Elena Hawkins ; Campbell Parker ; Saira De Jesus ; Enrique Jones ; Mihir Vivas ; Gwendolyn Gill ; Emelia Reed ; rOa Garcia ; Batool Garcia ; Kelly Velasco ; Darrick Glynn
--- NOTE | 2019-02-05 09:51 | Critical Care Progress Note ---
Date of Service February 05, 2019 Assessment & Plan (1) Admitted to intensive care unit: Reason Critically Ill: 89-year-old male admitted for sepsis secondary to cholangitis/pancreatitis, being transferred to outside hospital for escalation of care Neuro - [facility] ICU: Positive 2/2 to sepesis Cardiac - Septic shockinitial lactate of 15 now down trended to 8 following multiple bolus, will continue to trend, 7.2 this am -Patient now requiring vasopressors, on levo, CVC and arterial line inserted, goal map greater than 70 -mottling of fingers, toes, ears -Blood cultures pending, patient started on Vanco and Zosyn -Hold antihypertensive Respiratory - Hypoxic respiratory failureInitialypatient was on 15 L oxygen mask with PO2 of 60, mild compensatory tachypnea -Currently intubated -PEEP of 12 and FiO2 of 85% -Mild pulmonary congestion on CXR, will hold off on IV fluids for now as patient is in acute renal failure as well -Infiltrate vs fluid GI - Acute cholangitis/pancreatitis/liver abscesspatient had elevated LFTs and lipase with right upper and left upper quadrant tenderness on exam -MRCP shows possible 4 cm liver abscess which is under dome of diaphragm and likely not possible to decompress; biliary dilation of 13 mm; no stone visualized -GI consulted and patient s/p ERCP -Choledocholithiasis and cholangitis found, biliary sphincterotomy performed balloon extraction to remove stone. Biliary stents were placed. -Started on Vanco and Zosyn, see management of septic shock above -KUB showed no evidence of bowel gas pattern or evidence of bowel obstruction -We will trend LFTs RENAL/LYTES - Acute renal failurelikely ATN following hypotension, creatinine 2.68 on admission without baseline -Currently oliguric with urine output less than 30/h despite multiple boluses -Minimal urine output overnight -We will need CRRT, transferring for increased level of care -We will keep map greater than 70 -We will hold on IV fluids for now as patient currently hypoxic respiratory failure -Avoid nephrotoxins -Consider consult to nephrology in a.m. -Monitor strict I's and O's - Indwelling Foleystrict I's and O's ENDO - No history DM or thyroid disease ICU hyperglycemic protocol HEME - H&H stable Thrombocytopeniaplatelet count 68, likely secondary to sepsis and liver failure -We will obtain DIC labs and peripheral smear, rule out TTP -Monitor routine CBCs and transfuse if indicated ID - MRSA positive Blood cultures pending Zosyn and vancomycin LINES/IV ACCESS - CVC right IJ, left radial A-line, peripheral IVs DVT PROPHYLAXIS - SCDs, hold anticoagulation for procedure Dispo: Transfer for escalation of care Thank you for allowing us to participate in the care of this patient. Please refer to my attending physician's documentation for any further recommendations. Supervising Physician Co-Signing Physician Notes Dr. Salter was the resident-physician during care of patient. I separately evaluated patient for hightower portions of the history and the exam. I was present during the critical portion of medical decision making, and I discussed the case with the resident. I generally agree with the findings and plan except for any additions/exceptions noted. Patient is now status post ERCP with stent placement and removal of sludge. He does sphincterotomy as well. He was intubated for the procedure. He continued to be acidotic overnight requiring a bicarb drip. He is currently on a PEEP of 12 and FiO2 of 85% with sats in the low 90s. He is making minimal urine. We did talk with [facility] regarding transfer for CRRT. He will be transferred there and the transfer crew is here. I did speak with the daughter and discuss his CODE STATUS. She would like him to be a DO NOT RESUSCITATE on transfer. I did signed the appropriate paperwork to indicate this. He is currently on vancomycin and Zosyn for ascending cholangitis and pancreatitis. He also likely has a left lower lobe infiltrate which is consistent with possible pneumonia. He likely has intra-abdominal hypertension as well. He has some mottling his hands and feet which are likely due to low perfusion. Fortunately, his lactic acidosis continues to improve a bit. He is maintaining maps of greater than 65 on 0.3 mg of Levophed and 0.04 units of vasopressin. We did give him a dose of 120 mg of Lasix early in the morning with minimal urine output. His overall status remains grave. His prognosis is poor. I have personally spent 61 minutes of critical care time in the direct management of this patient. This is a life/limb threatening event. This includes time spent evaluating patient, direct bedside care, chart review, placing orders, interpretation of diagnostic studies, discussion with consultants, patient, and/or family members regarding treatment decisions, as well as other required patient management activities. This time is exclusive of all separately billable procedures, and teaching time and separate from and in addition to any other critical care service time. Subjective Patient intubated lying in bed in no acute distress. Responds to painful and verbal stimuli. Minimal urine output overnight. Transfer to [facility] pending for escalation of care. Physical Exam Physical Exam: General: Ill-appearing and mechanically ventilated HEENT: Scleral icterus present bilaterally Neck: Trachea midline, negative JVD Cardiac: Regular rate and rhythm, I did not appreciate any significant murmurs rubs or gallops, normal S1, normal S2, mottled fingers bilaterally with abnormal capillary refill Respiratory: Normal respiratory effort, on ventilator GI: Abdomen distended with hypoactive bowel sounds, positive tenderness, positiv e guarding MSK: Motor strength 5 out of 5 Skin: No rashes warm and dry, positive mottling toes fingers ears Neuro: Patellar DTRs 2+ bilaterally, sensation intact, Perrla, EOMI, accommodation normal Psych: Responds to stimuli Results & Data Vital Signs (Past 12 Hours) Vital Signs Temp Pulse Pulse Resp BP BP Pulse Ox 02/05/19 09:14 37.8 C H 96 H 28 H 105/56 L 91 02/05/19 09:00 95 H 107/64 91 02/05/19 08:45 98 H 131/50 L 92 02/05/19 08:30 104 H 115/59 L 93 02/05/19 08:15 97 H 111/66 89 L 02/05/19 08:10 94 H 113/67 88 L 02/05/19 08:05 92 H 103/73 90 02/05/19 08:00 37.8 C H 103 H 117/65 89 L 02/05/19 07:55 102 H 124/68 90 02/05/19 07:50 103 H 126/72 89 L 02/05/19 07:45 103 H 129/73 82 L 02/05/19 07:41 96 H 28 H 94 02/05/19 07:40 104 H 136/73 88 L 02/05/19 07:35 103 H 128/74 89 L 02/05/19 07:30 103 H 134/75 02/05/19 07:25 94 H 138/74 02/05/19 07:20 90 121/79 02/05/19 07:15 90 128/76 02/05/19 07:10 104 H 132/73 02/05/19 07:05 92 H 116/78 02/05/19 07:00 97 H 132/71 82 L 02/05/19 05:25 92 H 124/84 02/05/19 05:20 98 H 134/89 02/05/19 05:16 88 28 H 91 02/05/19 05:15 93 H 133/71 02/05/19 05:10 91 H 144/79 H 02/05/19 05:05 94 H 142/84 H 02/05/19 05:01 92 H 84 L 02/05/19 05:00 91 H 121/83 02/05/19 04:55 92 H 130/88 83 L 02/05/19 04:50 93 H 142/71 H 02/05/19 04:45 87 136/89 84 L 02/05/19 04:40 90 145/85 H 02/05/19 04:35 94 H 134/79 02/05/19 04:31 92 H 135/88 02/05/19 04:30 37.1 C 91 H 02/05/19 04:26 90 122/80 02/05/19 04:20 90 133/84 02/05/19 04:15 91 H 155/81 H 02/05/19 04:10 95 H 126/82 02/05/19 04:05 88 131/85 02/05/19 04:01 105 H 02/05/19 04:00 105 H 136/83 02/05/19 03:55 103 H 138/81 02/05/19 03:50 92 H 128/84 02/05/19 03:45 98 H 124/95 02/05/19 03:40 85 130/82 02/05/19 03:35 87 126/75 02/05/19 03:31 84 02/05/19 03:30 87 120/63 02/05/19 03:25 89 124/80 02/05/19 03:20 89 120/67 02/05/19 03:15 83 125/66 02/05/19 03:10 84 117/74 02/05/19 03:07 89 02/05/19 03:05 87 111/66 02/05/19 03:01 86 80 L 02/05/19 03:00 87 105/59 L 84 L 02/05/19 02:55 88 118/65 82 L 02/05/19 02:50 87 112/61 84 L 02/05/19 02:45 87 125/82 02/05/19 02:40 90 135/66 82 L 02/05/19 02:35 91 H 134/75 02/05/19 02:31 92 H 82 L 02/05/19 02:30 91 H 130/74 83 L 02/05/19 02:26 36.7 C 89 14 130/87 02/05/19 02:25 91 H 130/87 80 L 02/05/19 02:20 91 H 138/81 82 L 02/05/19 02:16 91 H 02/05/19 02:15 90 137/82 83 L 02/05/19 02:13 36.7 C 87 28 H 130/78 02/05/19 02:10 91 H 130/78 02/05/19 02:05 91 H 125/87 02/05/19 02:01 91 H 02/05/19 02:00 90 140/74 02/05/19 01:57 90 28 H 90 02/05/19 01:55 87 130/86 02/05/19 01:50 88 141/75 H 02/05/19 01:46 90 02/05/19 01:45 89 134/70 02/05/19 01:40 91 H 137/95 02/05/19 01:35 90 137/74 02/05/19 01:31 91 H 02/05/19 01:30 89 133/77 02/05/19 01:25 90 129/74 02/05/19 01:20 88 133/93 02/05/19 01:16 88 02/05/19 01:15 94 H 128/75 02/05/19 01:11 87 02/05/19 01:10 37.2 C 88 128/73 02/05/19 01:05 88 119/69 02/05/19 01:01 87 02/05/19 01:00 87 128/75 02/05/19 00:55 82 119/75 02/05/19 00:50 87 120/73 02/05/19 00:46 88 02/05/19 00:45 87 114/78 02/05/19 00:41 88 02/05/19 00:40 92 H 111/71 02/05/19 00:35 87 110/67 02/05/19 00:31 78 02/05/19 00:30 90 102/79 02/05/19 00:25 92 H 97/70 L 87 L 02/05/19 00:20 88 98/63 L 89 L 02/05/19 00:19 88 90/60 L 89 L 02/05/19 00:16 88 88 L 02/05/19 00:15 88 85/64 L 88 L 02/05/19 00:10 88 76/52 L 79 L 02/05/19 00:08 88 82/49 L 81 L 02/05/19 00:06 97 H 71/50 L 80 L 02/05/19 00:05 103 H 66/44 L 76 L 02/05/19 00:01 96 H 76 L 02/05/19 00:00 96 H 68/43 L 75 L 02/04/19 23:59 97 H 76/47 L 82 L 02/04/19 23:55 92 H 70/49 L 79 L 02/04/19 23:50 98 H 73/47 L 72 L 02/04/19 23:48 98 H 71/45 L 70 L 02/04/19 23:46 103 H 71 L 02/04/19 23:45 95 H 70/53 L 69 L 02/04/19 23:40 107 H 70/49 L 70 L 02/04/19 23:38 99 H 71/49 L 68 L 02/04/19 23:35 98 H 66/48 L 65 L 02/04/19 23:30 103 H 98/56 L 65 L 02/04/19 23:25 96 H 76/50 L 71 L 02/04/19 23:20 103 H 81/57 L 74 L 02/04/19 23:16 97 H 75 L 02/04/19 23:15 99 H 84/56 L 75 L 02/04/19 23:10 100 H 93/63 L 81 L 02/04/19 23:05 99 H 96/53 L 78 L 02/04/19 23:01 99 H 79 L 02/04/19 23:00 99 H 96/70 L 80 L 02/04/19 22:55 96 H 121/62 80 L 02/04/19 22:50 118 H 134/66 78 L 02/04/19 22:46 115 H 80 L 02/04/19 22:45 113 H 127/73 02/04/19 22:40 110 H 128/73 02/04/19 22:35 109 H 118/76 02/04/19 22:31 92 H 02/04/19 22:30 99 H 107/62 26 L 02/04/19 22:25 102 H 107/69 42 L 02/04/19 22:20 101 H 100/66 58 L 02/04/19 22:16 99 H 02/04/19 22:15 98 H 106/70 02/04/19 22:10 106 H 108/69 02/04/19 22:05 85 97/72 L 02/04/19 22:01 90 02/04/19 22:00 86 102/64 02/04/19 21:55 86 93/67 L Laboratory Results 02/05/19 02/05/19 02/05/19 Range/Units 05:35 04:38 04:38 WBC 14.33 H (4.8-10.8) K/uL RBC 3.84 L (4.7-6.1) M/uL Hgb 12.3 L (14.0-18.0) g/dL Hct 38.1 L (42-52) % MCV 99.2 (80-100) fL MCH 32.0 (25-34) pg MCHC 32.3 (32-36) g/dL RDW Std Deviation 53.5 H (36.4-46.3) fL RDW Coeff of Oren 14.8 H (11.5-14.5) % Plt Count 33 L (130-400) K/uL MPV 11.5 H (7.4-10.4) fL Absolute Nucleated RBC 0.07 H (0-0) K/uL Nucleated RBC % (auto) 0.5 % Neutrophils % (Manual) 71.6 % Lymphocytes % (Manual) 15.4 % Monocytes % (Manual) 1.6 % Eosinophils % (Manual) 3.3 % Basophils % (Manual) % Metamyelocytes % (Man) 6.5 % Myelocytes % (Man) 1.6 % Neutrophils # (Manual) 10.26 H (1.4-6.5) K/uL Total Absolute Neuts 10.26 H (1.4-6.5) K/uL Lymphocytes # (Manual) 2.21 (1.2-3.4) K/uL Total Abs Lymphocytes 2.21 (1.2-3.4) K/uL Monocytes # (Manual) 0.23 (0.11-0.59) K/uL Eosinophils # (Manual) 0.47 (0-0.5) K/uL Basophils # (Manual) (0-0.2) K/uL Metamyelocytes # (Man) 0.93 H (0-0) K/uL Myelocytes # (Manual) 0.23 H (0-0) K/uL Blood Smear Review Toxic Vacuolation 2+ Dohle Bodies Occasional Giant Platelets Echinocytes 1+ Peripher Smr Path Cons Haptoglobin PT 17.1 H (9.0-12.0) Seconds INR 1.7 H (0.9-1.1) APTT (21.0-31.0) Seconds PTT Ratio Fibrinogen (184-400) mg/dl Fibrin Degrad Products (<10) mcg/ml D-Dimer (0-500) ug/L FEU Factor VIII Activity Sample Site Art Line POC pH 7.24 L (7.35-7.45) POC pCO2 37 (35-46) mmHg POC pO2 74 L (80-95) mmHg POC HCO3 16 L (19-24) colby/L POC Total CO2 17 L (24-31) mEq/l POC Base Excess -12.0 L (-9-1.8) colby/L ABG pH (7.35-7.45) ABG pCO2 (35-46) mmHg ABG pO2 (80-95) mm/Hg ABG HCO3 (19-24) mmol/L POC ABG O2 Sat 92.0 (90-95) % ABG O2 Saturation (90-95) % ABG Base Excess (-9-1.8) mEq/L David Test NA (Pos) Barometric Pressure mm/Hg Oxygen Given O2 Delivery Device Ventilator POC O2 Rate 28 Minute Ventilation 9.8 POC FiO2 100 % Tidal Volume 350 PEEP 10 Sodium (136-145) mmol/L Potassium (3.5-5.1) mmol/L Chloride (98-107) mmol/L Carbon Dioxide (21-32) mmol/L Anion Gap (3-11) BUN (7-18) mg/dl Creatinine (0.6-1.4) mg/dl Est Cr Clr Drug Dosing ml/min Est GFR ( Amer) Est GFR (Non-Af Amer) BUN/Creatinine Ratio (10-20) Glucose (70-99) mg/dl POC Glucose (70-99) POC Glucose (other) (70-99) mg/dl Lactate (0.4-2.0) mmol/L Calcium (8.5-10.1) mg/dl Total Bilirubin (0.2-1) mg/dl Direct Bilirubin (0-0.2) mg/dl AST (15-37) U/L ALT (12-78) U/L Alkaline Phosphatase (45-117) U/L Lactate Dehydrogenase (87-241) U/L Total Creatine Kinase (39-308) U/L Troponin I (0-0.045) ng/ml Total Protein (6.4-8.2) gm/dl Albumin (3.4-5.0) gm/dl Globulin (2.5-4.0) gm/dl Albumin/Globulin Ratio (0.9-2) Triglycerides (0-150) mg/dl Lipase (73-393) U/L Specimen Hemolysis Nasal Screen MRSA (PCR) (Negative) Ref Lab Test Result Blood Type Antibody Screen 02/05/19 02/05/19 02/05/19 Range/Units 04:38 04:38 00:15 WBC (4.8-10.8) K/uL RBC (4.7-6.1) M/uL Hgb (14.0-18.0) g/dL Hct (42-52) % MCV (80-100) fL MCH (25-34) pg MCHC (32-36) g/dL RDW Std Deviation (36.4-46.3) fL RDW Coeff of Oren (11.5-14.5) % Plt Count (130-400) K/uL MPV (7.4-10.4) fL Absolute Nucleated RBC (0-0) K/uL Nucleated RBC % (auto) % Neutrophils % (Manual) % Lymphocytes % (Manual) % Monocytes % (Manual) % Eosinophils % (Manual) % Basophils % (Manual) % Metamyelocytes % (Man) % Myelocytes % (Man) % Neutrophils # (Manual) (1.4-6.5) K/uL Total Absolute Neuts (1.4-6.5) K/uL Lymphocytes # (Manual) (1.2-3.4) K/uL Total Abs Lymphocytes (1.2-3.4) K/uL Monocytes # (Manual) (0.11-0.59) K/uL Eosinophils # (Manual) (0-0.5) K/uL Basophils # (Manual) (0-0.2) K/uL Metamyelocytes # (Man) (0-0) K/uL Myelocytes # (Manual) (0-0) K/uL Blood Smear Review Toxic Vacuolation Dohle Bodies Giant Platelets Echinocytes Peripher Smr Path Cons Haptoglobin PT (9.0-12.0) Seconds INR (0.9-1.1) APTT (21.0-31.0) Seconds PTT Ratio Fibrinogen (184-400) mg/dl Fibrin Degrad Products (<10) mcg/ml D-Dimer (0-500) ug/L FEU Factor VIII Activity Sample Site POC pH (7.35-7.45) POC pCO2 (35-46) mmHg POC pO2 (80-95) mmHg POC HCO3 (19-24) colby/L POC Total CO2 (24-31) mEq/l POC Base Excess (-9-1.8) colby/L ABG pH (7.35-7.45) ABG pCO2 (35-46) mmHg ABG pO2 (80-95) mm/Hg ABG HCO3 (19-24) mmol/L POC ABG O2 Sat (90-95) % ABG O2 Saturation (90-95) % ABG Base Excess (-9-1.8) mEq/L David Test (Pos) Barometric Pressure mm/Hg Oxygen Given O2 Delivery Device POC O2 Rate Minute Ventilation POC FiO2 % Tidal Volume PEEP Sodium 137 (136-145) mmol/L Potassium 4.4 (3.5-5.1) mmol/L Chloride 107 (98-107) mmol/L Carbon Dioxide 15 L (21-32) mmol/L Anion Gap 15.0 H (3-11) BUN 46 H (7-18) mg/dl Creatinine 3.30 H D (0.6-1.4) mg/dl Est Cr Clr Drug Dosing 15.1 ml/min Est GFR ( Amer) 18.4 Est GFR (Non-Af Amer) 15.9 BUN/Creatinine Ratio 14.0 (10-20) Glucose 144 H (70-99) mg/dl POC Glucose (70-99) POC Glucose (other) (70-99) mg/dl Lactate 7.2 H* (0.4-2.0) mmol/L Calcium 7.6 L (8.5-10.1) mg/dl Total Bilirubin 7.6 H D (0.2-1) mg/dl Direct Bilirubin 6.3 H (0-0.2) mg/dl AST 997 H (15-37) U/L ALT 780 H (12-78) U/L Alkaline Phosphatase 353 H (45-117) U/L Lactate Dehydrogenase (87-241) U/L Total Creatine Kinase (39-308) U/L Troponin I (0-0.045) ng/ml Total Protein 5.1 L (6.4-8.2) gm/dl Albumin 2.4 L (3.4-5.0) gm/dl Globulin (2.5-4.0) gm/dl Albumin/Globulin Ratio (0.9-2) Triglycerides (0-150) mg/dl Lipase 3897 H (73-393) U/L Specimen Hemolysis Nasal Screen MRSA (PCR) (Negative) Ref Lab Test Result Blood Type O Positive Antibody Screen NEGATIVE 02/05/19 02/04/19 02/04/19 Range/Units 00:15 23:28 23:28 WBC 16.77 H (4.8-10.8) K/uL RBC 3.43 L (4.7-6.1) M/uL Hgb 11.1 L (14.0-18.0) g/dL Hct 33.5 L (42-52) % MCV 97.7 (80-100) fL MCH 32.4 (25-34) pg MCHC 33.1 (32-36) g/dL RDW Std Deviation 53.0 H (36.4-46.3) fL RDW Coeff of Oren 14.9 H (11.5-14.5) % Plt Count 47 L (130-400) K/uL MPV 11.9 H (7.4-10.4) fL Absolute Nucleated RBC 0.06 H (0-0) K/uL Nucleated RBC % (auto) 0.4 % Neutrophils % (Manual) 69.4 % Lymphocytes % (Manual) 17.5 % Monocytes % (Manual) 2.6 % Eosinophils % (Manual) 3.5 % Basophils % (Manual) 0.9 % Metamyelocytes % (Man) 6.1 % Myelocytes % (Man) % Neutrophils # (Manual) 11.64 H (1.4-6.5) K/uL Total Absolute Neuts 11.64 H (1.4-6.5) K/uL Lymphocytes # (Manual) 2.93 (1.2-3.4) K/uL Total Abs Lymphocytes 2.93 (1.2-3.4) K/uL Monocytes # (Manual) 0.44 (0.11-0.59) K/uL Eosinophils # (Manual) 0.59 H (0-0.5) K/uL Basophils # (Manual) 0.15 (0-0.2) K/uL Metamyelocytes # (Man) 1.02 H (0-0) K/uL Myelocytes # (Manual) (0-0) K/uL Blood Smear Review Toxic Vacuolation 2+ Dohle Bodies 1+ Giant Platelets Echinocytes 1+ Peripher Smr Path Cons Haptoglobin PT (9.0-12.0) Seconds INR (0.9-1.1) APTT (21.0-31.0) Seconds PTT Ratio Fibrinogen (184-400) mg/dl Fibrin Degrad Products (<10) mcg/ml D-Dimer (0-500) ug/L FEU Factor VIII Activity Sample Site POC pH (7.35-7.45) POC pCO2 (35-46) mmHg POC pO2 (80-95) mmHg POC HCO3 (19-24) colby/L POC Total CO2 (24-31) mEq/l POC Base Excess (-9-1.8) colby/L ABG pH (7.35-7.45) ABG pCO2 (35-46) mmHg ABG pO2 (80-95) mm/Hg ABG HCO3 (19-24) mmol/L POC ABG O2 Sat (90-95) % ABG O2 Saturation (90-95) % ABG Base Excess (-9-1.8) mEq/L David Test (Pos) Barometric Pressure mm/Hg Oxygen Given O2 Delivery Device POC O2 Rate Minute Ventilation POC FiO2 % Tidal Volume PEEP Sodium 143 (136-145) mmol/L Potassium 4.1 (3.5-5.1) mmol/L Chloride 111 H (98-107) mmol/L Carbon Dioxide 17 L (21-32) mmol/L Anion Gap 15.0 H (3-11) BUN 42 H (7-18) mg/dl Creatinine 2.97 H (0.6-1.4) mg/dl Est Cr Clr Drug Dosing 16.8 ml/min Est GFR ( Amer) 20.9 Est GFR (Non-Af Amer) 18.1 BUN/Creatinine Ratio 14.2 (10-20) Glucose 116 H (70-99) mg/dl POC Glucose (70-99) POC Glucose (other) (70-99) mg/dl Lactate 8.7 H* (0.4-2.0) mmol/L Calcium 7.7 L (8.5-10.1) mg/dl Total Bilirubin (0.2-1) mg/dl Direct Bilirubin (0-0.2) mg/dl AST (15-37) U/L ALT (12-78) U/L Alkaline Phosphatase (45-117) U/L Lactate Dehydrogenase (87-241) U/L Total Creatine Kinase (39-308) U/L Troponin I (0-0.045) ng/ml Total Protein (6.4-8.2) gm/dl Albumin (3.4-5.0) gm/dl Globulin (2.5-4.0) gm/dl Albumin/Globulin Ratio (0.9-2) Triglycerides (0-150) mg/dl Lipase (73-393) U/L Specimen Hemolysis Nasal Screen MRSA (PCR) (Negative) Ref Lab Test Result Blood Type Antibody Screen 02/04/19 02/04/19 02/04/19 Range/Units 23:11 22:28 22:20 WBC (4.8-10.8) K/uL RBC (4.7-6.1) M/uL Hgb (14.0-18.0) g/dL Hct (42-52) % MCV (80-100) fL MCH (25-34) pg MCHC (32-36) g/dL RDW Std Deviation (36.4-46.3) fL RDW Coeff of Oren (11.5-14.5) % Plt Count (130-400) K/uL MPV (7.4-10.4) fL Absolute Nucleated RBC (0-0) K/uL Nucleated RBC % (auto) % Neutrophils % (Manual) % Lymphocytes % (Manual) % Monocytes % (Manual) % Eosinophils % (Manual) % Basophils % (Manual) % Metamyelocytes % (Man) % Myelocytes % (Man) % Neutrophils # (Manual) (1.4-6.5) K/uL Total Absolute Neuts (1.4-6.5) K/uL Lymphocytes # (Manual) (1.2-3.4) K/uL Total Abs Lymphocytes (1.2-3.4) K/uL Monocytes # (Manual) (0.11-0.59) K/uL Eosinophils # (Manual) (0-0.5) K/uL Basophils # (Manual) (0-0.2) K/uL Metamyelocytes # (Man) (0-0) K/uL Myelocytes # (Manual) (0-0) K/uL Blood Smear Review Toxic Vacuolation Dohle Bodies Giant Platelets Echinocytes Peripher Smr Path Cons Haptoglobin PT (9.0-12.0) Seconds INR (0.9-1.1) APTT (21.0-31.0) Seconds PTT Ratio Fibrinogen (184-400) mg/dl Fibrin Degrad Products (<10) mcg/ml D-Dimer (0-500) ug/L FEU Factor VIII Activity Sample Site Art Line POC pH 7.12 L* (7.35-7.45) POC pCO2 36 (35-46) mmHg POC pO2 65 L (80-95) mmHg POC HCO3 12 L (19-24) colby/L POC Total CO2 13 L (24-31) mEq/l POC Base Excess -18.0 L (-9-1.8) colby/L ABG pH (7.35-7.45) ABG pCO2 (35-46) mmHg ABG pO2 (80-95) mm/Hg ABG HCO3 (19-24) mmol/L POC ABG O2 Sat 85.0 L (90-95) % ABG O2 Saturation (90-95) % ABG Base Excess (-9-1.8) mEq/L David Test NA (Pos) Barometric Pressure mm/Hg Oxygen Given O2 Delivery Device Ventilator POC O2 Rate 28 Minute Ventilation 9.9 POC FiO2 80 % Tidal Volume 350 PEEP 10 Sodium (136-145) mmol/L Potassium (3.5-5.1) mmol/L Chloride (98-107) mmol/L Carbon Dioxide (21-32) mmol/L Anion Gap (3-11) BUN (7-18) mg/dl Creatinine (0.6-1.4) mg/dl Est Cr Clr Drug Dosing ml/min Est GFR ( Amer) Est GFR (Non-Af Amer) BUN/Creatinine Ratio (10-20) Glucose (70-99) mg/dl POC Glucose 19 L* (70-99) POC Glucose (other) 100 H (70-99) mg/dl Lactate (0.4-2.0) mmol/L Calcium (8.5-10.1) mg/dl Total Bilirubin (0.2-1) mg/dl Direct Bilirubin (0-0.2) mg/dl AST (15-37) U/L ALT (12-78) U/L Alkaline Phosphatase (45-117) U/L Lactate Dehydrogenase (87-241) U/L Total Creatine Kinase (39-308) U/L Troponin I (0-0.045) ng/ml Total Protein (6.4-8.2) gm/dl Albumin (3.4-5.0) gm/dl Globulin (2.5-4.0) gm/dl Albumin/Globulin Ratio (0.9-2) Triglycerides (0-150) mg/dl Lipase (73-393) U/L Specimen Hemolysis Nasal Screen MRSA (PCR) (Negative) Ref Lab Test Result Blood Type Antibody Screen 02/04/19 02/04/19 02/04/19 Range/Units 21:55 21:55 21:55 WBC (4.8-10.8) K/uL RBC (4.7-6.1) M/uL Hgb (14.0-18.0) g/dL Hct (42-52) % MCV (80-100) fL MCH (25-34) pg MCHC (32-36) g/dL RDW Std Deviation (36.4-46.3) fL RDW Coeff of Oren (11.5-14.5) % Plt Count (130-400) K/uL MPV (7.4-10.4) fL Absolute Nucleated RBC (0-0) K/uL Nucleated RBC % (auto) % Neutrophils % (Manual) % Lymphocytes % (Manual) % Monocytes % (Manual) % Eosinophils % (Manual) % Basophils % (Manual) % Metamyelocytes % (Man) % Myelocytes % (Man) % Neutrophils # (Manual) (1.4-6.5) K/uL Total Absolute Neuts (1.4-6.5) K/uL Lymphocytes # (Manual) (1.2-3.4) K/uL Total Abs Lymphocytes (1.2-3.4) K/uL Monocytes # (Manual) (0.11-0.59) K/uL Eosinophils # (Manual) (0-0.5) K/uL Basophils # (Manual) (0-0.2) K/uL Metamyelocytes # (Man) (0-0) K/uL Myelocytes # (Manual) (0-0) K/uL Blood Smear Review Toxic Vacuolation Dohle Bodies Giant Platelets Echinocytes Peripher Smr Path Cons Haptoglobin PT (9.0-12.0) Seconds INR (0.9-1.1) APTT (21.0-31.0) Seconds PTT Ratio Fibrinogen (184-400) mg/dl Fibrin Degrad Products (<10) mcg/ml D-Dimer (0-500) ug/L FEU Factor VIII Activity Pending Sample Site POC pH (7.35-7.45) POC pCO2 (35-46) mmHg POC pO2 (80-95) mmHg POC HCO3 (19-24) colby/L POC Total CO2 (24-31) mEq/l POC Base Excess (-9-1.8) colby/L ABG pH (7.35-7.45) ABG pCO2 (35-46) mmHg ABG pO2 (80-95) mm/Hg ABG HCO3 (19-24) mmol/L POC ABG O2 Sat (90-95) % ABG O2 Saturation (90-95) % ABG Base Excess (-9-1.8) mEq/L David Test (Pos) Barometric Pressure mm/Hg Oxygen Given O2 Delivery Device POC O2 Rate Minute Ventilation POC FiO2 % Tidal Volume PEEP Sodium (136-145) mmol/L Potassium (3.5-5.1) mmol/L Chloride (98-107) mmol/L Carbon Dioxide (21-32) mmol/L Anion Gap (3-11) BUN (7-18) mg/dl Creatinine (0.6-1.4) mg/dl Est Cr Clr Drug Dosing ml/min Est GFR ( Amer) Est GFR (Non-Af Amer) BUN/Creatinine Ratio (10-20) Glucose (70-99) mg/dl POC Glucose (70-99) POC Glucose (other) (70-99) mg/dl Lactate (0.4-2.0) mmol/L Calcium (8.5-10.1) mg/dl Total Bilirubin (0.2-1) mg/dl Direct Bilirubin (0-0.2) mg/dl AST (15-37) U/L ALT (12-78) U/L Alkaline Phosphatase (45-117) U/L Lactate Dehydrogenase (87-241) U/L Total Creatine Kinase (39-308) U/L Troponin I (0-0.045) ng/ml Total Protein (6.4-8.2) gm/dl Albumin (3.4-5.0) gm/dl Globulin (2.5-4.0) gm/dl Albumin/Globulin Ratio (0.9-2) Triglycerides Cancelled (0-150) mg/dl Lipase (73-393) U/L Specimen Hemolysis Nasal Screen MRSA (PCR) (Negative) Ref Lab Test Result Pending Blood Type Antibody Screen 02/04/19 02/04/19 02/04/19 Range/Units 21:55 21:55 21:55 WBC (4.8-10.8) K/uL RBC (4.7-6.1) M/uL Hgb (14.0-18.0) g/dL Hct (42-52) % MCV (80-100) fL MCH (25-34) pg MCHC (32-36) g/dL RDW Std Deviation (36.4-46.3) fL RDW Coeff of Oren (11.5-14.5) % Plt Count (130-400) K/uL MPV (7.4-10.4) fL Absolute Nucleated RBC (0-0) K/uL Nucleated RBC % (auto) % Neutrophils % (Manual) % Lymphocytes % (Manual) % Monocytes % (Manual) % Eosinophils % (Manual) % Basophils % (Manual) % Metamyelocytes % (Man) % Myelocytes % (Man) % Neutrophils # (Manual) (1.4-6.5) K/uL Total Absolute Neuts (1.4-6.5) K/uL Lymphocytes # (Manual) (1.2-3.4) K/uL Total Abs Lymphocytes (1.2-3.4) K/uL Monocytes # (Manual) (0.11-0.59) K/uL Eosinophils # (Manual) (0-0.5) K/uL Basophils # (Manual) (0-0.2) K/uL Metamyelocytes # (Man) (0-0) K/uL Myelocytes # (Manual) (0-0) K/uL Blood Smear Review Toxic Vacuolation Dohle Bodies Giant Platelets Echinocytes Peripher Smr Path Cons Haptoglobin Pending PT (9.0-12.0) Seconds INR (0.9-1.1) APTT (21.0-31.0) Seconds PTT Ratio Fibrinogen (184-400) mg/dl Fibrin Degrad Products (<10) mcg/ml D-Dimer (0-500) ug/L FEU Factor VIII Activity Cancelled Sample Site POC pH (7.35-7.45) POC pCO2 (35-46) mmHg POC pO2 (80-95) mmHg POC HCO3 (19-24) colby/L POC Total CO2 (24-31) mEq/l POC Base Excess (-9-1.8) colby/L ABG pH (7.35-7.45) ABG pCO2 (35-46) mmHg ABG pO2 (80-95) mm/Hg ABG HCO3 (19-24) mmol/L POC ABG O2 Sat (90-95) % ABG O2 Saturation (90-95) % ABG Base Excess (-9-1.8) mEq/L David Test (Pos) Barometric Pressure mm/Hg Oxygen Given O2 Delivery Device POC O2 Rate Minute Ventilation POC FiO2 % Tidal Volume PEEP Sodium (136-145) mmol/L Potassium (3.5-5.1) mmol/L Chloride (98-107) mmol/L Carbon Dioxide (21-32) mmol/L Anion Gap (3-11) BUN (7-18) mg/dl Creatinine (0.6-1.4) mg/dl Est Cr Clr Drug Dosing ml/min Est GFR ( Amer) Est GFR (Non-Af Amer) BUN/Creatinine Ratio (10-20) Glucose (70-99) mg/dl POC Glucose (70-99) POC Glucose (other) (70-99) mg/dl Lactate (0.4-2.0) mmol/L Calcium (8.5-10.1) mg/dl Total Bilirubin (0.2-1) mg/dl Direct Bilirubin (0-0.2) mg/dl AST (15-37) U/L ALT (12-78) U/L Alkaline Phosphatase (45-117) U/L Lactate Dehydrogenase 1143 H (87-241) U/L Total Creatine Kinase (39-308) U/L Troponin I (0-0.045) ng/ml Total Protein (6.4-8.2) gm/dl Albumin (3.4-5.0) gm/dl Globulin (2.5-4.0) gm/dl Albumin/Globulin Ratio (0.9-2) Triglycerides (0-150) mg/dl Lipase (73-393) U/L Specimen Hemolysis Nasal Screen MRSA (PCR) (Negative) Ref Lab Test Result Blood Type Antibody Screen 02/04/19 02/04/19 02/04/19 Range/Units 21:55 21:55 21:55 WBC (4.8-10.8) K/uL RBC (4.7-6.1) M/uL Hgb (14.0-18.0) g/dL Hct (42-52) % MCV (80-100) fL MCH (25-34) pg MCHC (32-36) g/dL RDW Std Deviation (36.4-46.3) fL RDW Coeff of Oren (11.5-14.5) % Plt Count (130-400) K/uL MPV (7.4-10.4) fL Absolute Nucleated RBC (0-0) K/uL Nucleated RBC % (auto) % Neutrophils % (Manual) % Lymphocytes % (Manual) % Monocytes % (Manual) % Eosinophils % (Manual) % Basophils % (Manual) % Metamyelocytes % (Man) % Myelocytes % (Man) % Neutrophils # (Manual) (1.4-6.5) K/uL Total Absolute Neuts (1.4-6.5) K/uL Lymphocytes # (Manual) (1.2-3.4) K/uL Total Abs Lymphocytes (1.2-3.4) K/uL Monocytes # (Manual) (0.11-0.59) K/uL Eosinophils # (Manual) (0-0.5) K/uL Basophils # (Manual) (0-0.2) K/uL Metamyelocytes # (Man) (0-0) K/uL Myelocytes # (Manual) (0-0) K/uL Blood Smear Review Toxic Vacuolation Dohle Bodies Giant Platelets Echinocytes Peripher Smr Path Cons Haptoglobin PT (9.0-12.0) Seconds INR (0.9-1.1) APTT 51.7 H* (21.0-31.0) Seconds PTT Ratio 1.9 Fibrinogen 101 L (184-400) mg/dl Fibrin Degrad Products >40 H (<10) mcg/ml D-Dimer > 59518 H* (0-500) ug/L FEU Factor VIII Activity Sample Site POC pH (7.35-7.45) POC pCO2 (35-46) mmHg POC pO2 (80-95) mmHg POC HCO3 (19-24) oclby/L POC Total CO2 (24-31) mEq/l POC Base Excess (-9-1.8) colby/L ABG pH (7.35-7.45) ABG pCO2 (35-46) mmHg ABG pO2 (80-95) mm/Hg ABG HCO3 (19-24) mmol/L POC ABG O2 Sat (90-95) % ABG O2 Saturation (90-95) % ABG Base Excess (-9-1.8) mEq/L David Test (Pos) Barometric Pressure mm/Hg Oxygen Given O2 Delivery Device POC O2 Rate Minute Ventilation POC FiO2 % Tidal Volume PEEP Sodium (136-145) mmol/L Potassium (3.5-5.1) mmol/L Chloride (98-107) mmol/L Carbon Dioxide (21-32) mmol/L Anion Gap (3-11) BUN (7-18) mg/dl Creatinine (0.6-1.4) mg/dl Est Cr Clr Drug Dosing ml/min Est GFR ( Amer) Est GFR (Non-Af Amer) BUN/Creatinine Ratio (10-20) Glucose (70-99) mg/dl POC Glucose (70-99) POC Glucose (other) (70-99) mg/dl Lactate (0.4-2.0) mmol/L Calcium (8.5-10.1) mg/dl Total Bilirubin (0.2-1) mg/dl Direct Bilirubin (0-0.2) mg/dl AST (15-37) U/L ALT (12-78) U/L Alkaline Phosphatase (45-117) U/L Lactate Dehydrogenase (87-241) U/L Total Creatine Kinase 5945 H (39-308) U/L Troponin I (0-0.045) ng/ml Total Protein (6.4-8.2) gm/dl Albumin (3.4-5.0) gm/dl Globulin (2.5-4.0) gm/dl Albumin/Globulin Ratio (0.9-2) Triglycerides (0-150) mg/dl Lipase (73-393) U/L Specimen Hemolysis Nasal Screen MRSA (PCR) (Negative) Ref Lab Test Result Blood Type Antibody Screen 02/04/19 02/04/19 02/04/19 Range/Units 21:36 17:56 17:55 WBC (4.8-10.8) K/uL RBC (4.7-6.1) M/uL Hgb (14.0-18.0) g/dL Hct (42-52) % MCV (80-100) fL MCH (25-34) pg MCHC (32-36) g/dL RDW Std Deviation (36.4-46.3) fL RDW Coeff of Oren (11.5-14.5) % Plt Count (130-400) K/uL MPV (7.4-10.4) fL Absolute Nucleated RBC (0-0) K/uL Nucleated RBC % (auto) % Neutrophils % (Manual) % Lymphocytes % (Manual) % Monocytes % (Manual) % Eosinophils % (Manual) % Basophils % (Manual) % Metamyelocytes % (Man) % Myelocytes % (Man) % Neutrophils # (Manual) (1.4-6.5) K/uL Total Absolute Neuts (1.4-6.5) K/uL Lymphocytes # (Manual) (1.2-3.4) K/uL Total Abs Lymphocytes (1.2-3.4) K/uL Monocytes # (Manual) (0.11-0.59) K/uL Eosinophils # (Manual) (0-0.5) K/uL Basophils # (Manual) (0-0.2) K/uL Metamyelocytes # (Man) (0-0) K/uL Myelocytes # (Manual) (0-0) K/uL Blood Smear Review Toxic Vacuolation Dohle Bodies Giant Platelets Echinocytes Peripher Smr Path Cons Haptoglobin PT (9.0-12.0) Seconds INR (0.9-1.1) APTT (21.0-31.0) Seconds PTT Ratio Fibrinogen (184-400) mg/dl Fibrin Degrad Products (<10) mcg/ml D-Dimer (0-500) ug/L FEU Factor VIII Activity Sample Site Art Line POC pH 7.18 L* (7.35-7.45) POC pCO2 36 (35-46) mmHg POC pO2 71 L (80-95) mmHg POC HCO3 13 L (19-24) colby/L POC Total CO2 14 L (24-31) mEq/l POC Base Excess -15.0 L (-9-1.8) colby/L ABG pH 7.31 L (7.35-7.45) ABG pCO2 28 L (35-46) mmHg ABG pO2 69 L (80-95) mm/Hg ABG HCO3 14 L (19-24) mmol/L POC ABG O2 Sat 89.0 L (90-95) % ABG O2 Saturation 93.0 (90-95) % ABG Base Excess -10.9 L (-9-1.8) mEq/L David Test NA Pos (Pos) Barometric Pressure 737.4 mm/Hg Oxygen Given 10 O2 Delivery Device Ventilator POC O2 Rate 24 Minute Ventilation 8.4 POC FiO2 100 % Tidal Volume 350 PEEP 5 Sodium (136-145) mmol/L Potassium (3.5-5.1) mmol/L Chloride (98-107) mmol/L Carbon Dioxide (21-32) mmol/L Anion Gap (3-11) BUN (7-18) mg/dl Creatinine (0.6-1.4) mg/dl Est Cr Clr Drug Dosing ml/min Est GFR ( Amer) Est GFR (Non-Af Amer) BUN/Creatinine Ratio (10-20) Glucose (70-99) mg/dl POC Glucose 127 H (70-99) POC Glucose (other) (70-99) mg/dl Lactate (0.4-2.0) mmol/L Calcium (8.5-10.1) mg/dl Total Bilirubin (0.2-1) mg/dl Direct Bilirubin (0-0.2) mg/dl AST (15-37) U/L ALT (12-78) U/L Alkaline Phosphatase (45-117) U/L Lactate Dehydrogenase (87-241) U/L Total Creatine Kinase (39-308) U/L Troponin I (0-0.045) ng/ml Total Protein (6.4-8.2) gm/dl Albumin (3.4-5.0) gm/dl Globulin (2.5-4.0) gm/dl Albumin/Globulin Ratio (0.9-2) Triglycerides (0-150) mg/dl Lipase (73-393) U/L Specimen Hemolysis Nasal Screen MRSA (PCR) (Negative) Ref Lab Test Result Blood Type Antibody Screen 02/04/19 02/04/19 02/04/19 Range/Units 17:55 17:35 14:18 WBC (4.8-10.8) K/uL RBC (4.7-6.1) M/uL Hgb (14.0-18.0) g/dL Hct (42-52) % MCV (80-100) fL MCH (25-34) pg MCHC (32-36) g/dL RDW Std Deviation (36.4-46.3) fL RDW Coeff of Oren (11.5-14.5) % Plt Count (130-400) K/uL MPV (7.4-10.4) fL Absolute Nucleated RBC (0-0) K/uL Nucleated RBC % (auto) % Neutrophils % (Manual) % Lymphocytes % (Manual) % Monocytes % (Manual) % Eosinophils % (Manual) % Basophils % (Manual) % Metamyelocytes % (Man) % Myelocytes % (Man) % Neutrophils # (Manual) (1.4-6.5) K/uL Total Absolute Neuts (1.4-6.5) K/uL Lymphocytes # (Manual) (1.2-3.4) K/uL Total Abs Lymphocytes (1.2-3.4) K/uL Monocytes # (Manual) (0.11-0.59) K/uL Eosinophils # (Manual) (0-0.5) K/uL Basophils # (Manual) (0-0.2) K/uL Metamyelocytes # (Man) (0-0) K/uL Myelocytes # (Manual) (0-0) K/uL Blood Smear Review Toxic Vacuolation Dohle Bodies Giant Platelets Echinocytes Peripher Smr Path Cons Haptoglobin PT 17.6 H (9.0-12.0) Seconds INR 1.8 H (0.9-1.1) APTT (21.0-31.0) Seconds PTT Ratio Fibrinogen (184-400) mg/dl Fibrin Degrad Products (<10) mcg/ml D-Dimer (0-500) ug/L FEU Factor VIII Activity Sample Site POC pH (7.35-7.45) POC pCO2 (35-46) mmHg POC pO2 (80-95) mmHg POC HCO3 (19-24) colby/L POC Total CO2 (24-31) mEq/l POC Base Excess (-9-1.8) colby/L ABG pH (7.35-7.45) ABG pCO2 (35-46) mmHg ABG pO2 (80-95) mm/Hg ABG HCO3 (19-24) mmol/L POC ABG O2 Sat (90-95) % ABG O2 Saturation (90-95) % ABG Base Excess (-9-1.8) mEq/L David Test (Pos) Barometric Pressure mm/Hg Oxygen Given O2 Delivery Device POC O2 Rate Minute Ventilation POC FiO2 % Tidal Volume PEEP Sodium (136-145) mmol/L Potassium (3.5-5.1) mmol/L Chloride (98-107) mmol/L Carbon Dioxide (21-32) mmol/L Anion Gap (3-11) BUN (7-18) mg/dl Creatinine (0.6-1.4) mg/dl Est Cr Clr Drug Dosing ml/min Est GFR ( Amer) Est GFR (Non-Af Amer) BUN/Creatinine Ratio (10-20) Glucose (70-99) mg/dl POC Glucose (70-99) POC Glucose (other) (70-99) mg/dl Lactate 8.3 H* (0.4-2.0) mmol/L Calcium (8.5-10.1) mg/dl Total Bilirubin (0.2-1) mg/dl Direct Bilirubin (0-0.2) mg/dl AST (15-37) U/L ALT (12-78) U/L Alkaline Phosphatase (45-117) U/L Lactate Dehydrogenase (87-241) U/L Total Creatine Kinase (39-308) U/L Troponin I (0-0.045) ng/ml Total Protein (6.4-8.2) gm/dl Albumin (3.4-5.0) gm/dl Globulin (2.5-4.0) gm/dl Albumin/Globulin Ratio (0.9-2) Triglycerides (0-150) mg/dl Lipase (73-393) U/L Specimen Hemolysis Nasal Screen MRSA (PCR) Positive A (Negative) Ref Lab Test Result Blood Type Antibody Screen 02/04/19 02/04/19 02/04/19 Range/Units 14:16 14:15 14:15 WBC 9.57 (4.8-10.8) K/uL RBC 3.96 L (4.7-6.1) M/uL Hgb 12.5 L (14.0-18.0) g/dL Hct 39.1 L (42-52) % MCV 98.7 (80-100) fL MCH 31.6 (25-34) pg MCHC 32.0 (32-36) g/dL RDW Std Deviation 51.5 H (36.4-46.3) fL RDW Coeff of Oren 14.5 (11.5-14.5) % Plt Count 62 L (130-400) K/uL MPV 11.1 H (7.4-10.4) fL Absolute Nucleated RBC 0.06 H (0-0) K/uL Nucleated RBC % (auto) 0.6 % Neutrophils % (Manual) 49.6 % Lymphocytes % (Manual) 17.1 % Monocytes % (Manual) 1.8 % Eosinophils % (Manual) 5.4 % Basophils % (Manual) 0.9 % Metamyelocytes % (Man) 17.1 % Myelocytes % (Man) 8.1 % Neutrophils # (Manual) 4.75 (1.4-6.5) K/uL Total Absolute Neuts 4.75 (1.4-6.5) K/uL Lymphocytes # (Manual) 1.64 (1.2-3.4) K/uL Total Abs Lymphocytes 1.64 (1.2-3.4) K/uL Monocytes # (Manual) 0.17 (0.11-0.59) K/uL Eosinophils # (Manual) 0.52 H (0-0.5) K/uL Basophils # (Manual) 0.09 (0-0.2) K/uL Metamyelocytes # (Man) 1.64 H (0-0) K/uL Myelocytes # (Manual) 0.78 H (0-0) K/uL Blood Smear Review Toxic Vacuolation 2+ Dohle Bodies 1+ Giant Platelets 1+ Echinocytes 1+ Peripher Smr Path Cons Haptoglobin PT (9.0-12.0) Seconds INR (0.9-1.1) APTT (21.0-31.0) Seconds PTT Ratio Fibrinogen (184-400) mg/dl Fibrin Degrad Products (<10) mcg/ml D-Dimer (0-500) ug/L FEU Factor VIII Activity Sample Site POC pH (7.35-7.45) POC pCO2 (35-46) mmHg POC pO2 (80-95) mmHg POC HCO3 (19-24) colby/L POC Total CO2 (24-31) mEq/l POC Base Excess (-9-1.8) colby/L ABG pH (7.35-7.45) ABG pCO2 (35-46) mmHg ABG pO2 (80-95) mm/Hg ABG HCO3 (19-24) mmol/L POC ABG O2 Sat (90-95) % ABG O2 Saturation (90-95) % ABG Base Excess (-9-1.8) mEq/L David Test (Pos) Barometric Pressure mm/Hg Oxygen Given O2 Delivery Device POC O2 Rate Minute Ventilation POC FiO2 % Tidal Volume PEEP Sodium 144 (136-145) mmol/L Potassium 3.7 (3.5-5.1) mmol/L Chloride 109 H (98-107) mmol/L Carbon Dioxide 14 L (21-32) mmol/L Anion Gap 21.0 H (3-11) BUN 33 H (7-18) mg/dl Creatinine 2.68 H (0.6-1.4) mg/dl Est Cr Clr Drug Dosing 19.0 ml/min Est GFR ( Amer) 23.7 Est GFR (Non-Af Amer) 20.5 BUN/Creatinine Ratio 12.4 (10-20) Glucose 103 H (70-99) mg/dl POC Glucose (70-99) POC Glucose (other) (70-99) mg/dl Lactate 12.0 H* (0.4-2.0) mmol/L Calcium 8.9 (8.5-10.1) mg/dl Total Bilirubin 4.5 H (0.2-1) mg/dl Direct Bilirubin (0-0.2) mg/dl AST 851 H (15-37) U/L ALT 767 H (12-78) U/L Alkaline Phosphatase 521 H (45-117) U/L Lactate Dehydrogenase (87-241) U/L Total Creatine Kinase (39-308) U/L Troponin I 0.520 H* (0-0.045) ng/ml Total Protein 5.4 L (6.4-8.2) gm/dl Albumin 2.6 L (3.4-5.0) gm/dl Globulin 2.8 (2.5-4.0) gm/dl Albumin/Globulin Ratio 0.9 (0.9-2) Triglycerides (0-150) mg/dl Lipase 52418 H (73-393) U/L Specimen Hemolysis Nasal Screen MRSA (PCR) (Negative) Ref Lab Test Result Blood Type Antibody Screen Resident Activity Tracking Resident Involvement: Resident Care Provided Care Provided: Adult Hospital Medicine
--- NOTE | 2019-02-05 09:57 | Gastroenterology Progress Note ---
Date of Service February 05, 2019 Assessment & Plan (1) Acute pancreatitis: (2) Liver abscess: (3) Cholangitis: (4) Lactic acidosis: (5) Acute renal failure: Pt is a 89 y/o male followed for pancreatitis, cholangitis, possible liver abscess. He is s/p ERCP yesterday s/p choledocholithiasis removal, sphincterectomy and biliary stent placements. He remained intubated out of OR, having worsening kidney, liver functions, volume overload. He is going to be transferred to [facility] for worsening sepsis, respiratory failure, volume overload, [place] w anticipation of CRRT. Subjective Pt intubated since out of OR post ERCP procedure yesterday, on pressor support. Per ICU team, transport is coming soon to transfer pt to [facility] for worsening sepsis, respiratory failure, volume overload, [place] and plans for CCRT. Chart reviewed. Daughter (Vivian) at bedside aware of current plans to transfer pt. Review of Systems Review of Systems: Unobtainable due to endotracheal tube Physical Exam Constitutional: comfortable and + mechanically ventilated ENMT: external ear and nose normal, oropharynx normal Respiratory: Auscultation: + diminished lung sounds Mechanically vented Cardiovascular: RRR, no murmur, no edema Gastrointestinal (Abdomen): Inspection/Auscultation: + hypoactive bowel sounds Results & Data Vital Signs (Past 12 Hours) Vital Signs Temp Pulse Pulse Resp BP BP Pulse Ox 02/05/19 09:14 37.8 C H 96 H 28 H 105/56 L 91 02/05/19 09:00 95 H 107/64 91 02/05/19 08:45 98 H 131/50 L 92 02/05/19 08:30 104 H 115/59 L 93 02/05/19 08:15 97 H 111/66 89 L 02/05/19 08:10 94 H 113/67 88 L 02/05/19 08:05 92 H 103/73 90 02/05/19 08:00 37.8 C H 103 H 117/65 89 L 02/05/19 07:55 102 H 124/68 90 02/05/19 07:50 103 H 126/72 89 L 02/05/19 07:45 103 H 129/73 82 L 02/05/19 07:41 96 H 28 H 94 02/05/19 07:40 104 H 136/73 88 L 12/09/19 07:35 103 H 128/74 89 L 02/05/19 07:30 103 H 134/75 02/05/19 07:25 94 H 138/74 02/05/19 07:20 90 121/79 02/05/19 07:15 90 128/76 02/05/19 07:10 104 H 132/73 02/05/19 07:05 92 H 116/78 02/05/19 07:00 97 H 132/71 82 L 02/05/19 05:25 92 H 124/84 02/05/19 05:20 98 H 134/89 02/05/19 05:16 88 28 H 91 02/05/19 05:15 93 H 133/71 02/05/19 05:10 91 H 144/79 H 02/05/19 05:05 94 H 142/84 H 02/05/19 05:01 92 H 84 L 02/05/19 05:00 91 H 121/83 02/05/19 04:55 92 H 130/88 83 L 02/05/19 04:50 93 H 142/71 H 02/05/19 04:45 87 136/89 84 L 02/05/19 04:40 90 145/85 H 02/05/19 04:35 94 H 134/79 02/05/19 04:31 92 H 135/88 02/05/19 04:30 37.1 C 91 H 02/05/19 04:26 90 122/80 02/05/19 04:20 90 133/84 02/05/19 04:15 91 H 155/81 H 02/05/19 04:10 95 H 126/82 02/05/19 04:05 88 131/85 02/05/19 04:01 105 H 02/05/19 04:00 105 H 136/83 02/05/19 03:55 103 H 138/81 02/05/19 03:50 92 H 128/84 02/05/19 03:45 98 H 124/95 02/05/19 03:40 85 130/82 02/05/19 03:35 87 126/75 02/05/19 03:31 84 02/05/19 03:30 87 120/63 02/05/19 03:25 89 124/80 02/05/19 03:20 89 120/67 12/09/19 03:15 83 125/66 02/05/19 03:10 84 117/74 02/05/19 03:07 89 02/05/19 03:05 87 111/66 02/05/19 03:01 86 80 L 02/05/19 03:00 87 105/59 L 84 L 02/05/19 02:55 88 118/65 82 L 02/05/19 02:50 87 112/61 84 L 02/05/19 02:45 87 125/82 02/05/19 02:40 90 135/66 82 L 02/05/19 02:35 91 H 134/75 02/05/19 02:31 92 H 82 L 02/05/19 02:30 91 H 130/74 83 L 02/05/19 02:26 36.7 C 89 14 130/87 02/05/19 02:25 91 H 130/87 80 L 02/05/19 02:20 91 H 138/81 82 L 02/05/19 02:16 91 H 02/05/19 02:15 90 137/82 83 L 02/05/19 02:13 36.7 C 87 28 H 130/78 02/05/19 02:10 91 H 130/78 02/05/19 02:05 91 H 125/87 02/05/19 02:01 91 H 02/05/19 02:00 90 140/74 02/05/19 01:57 90 28 H 90 02/05/19 01:55 87 130/86 02/05/19 01:50 88 141/75 H 02/05/19 01:46 90 02/05/19 01:45 89 134/70 02/05/19 01:40 91 H 137/95 02/05/19 01:35 90 137/74 02/05/19 01:31 91 H 02/05/19 01:30 89 133/77 02/05/19 01:25 90 129/74 02/05/19 01:20 88 133/93 02/05/19 01:16 88 02/05/19 01:15 94 H 128/75 02/05/19 01:11 87 02/05/19 01:10 37.2 C 88 128/73 02/05/19 01:05 88 119/69 02/05/19 01:01 87 02/05/19 01:00 87 128/75 02/05/19 00:55 82 119/75 02/05/19 00:50 87 120/73 02/05/19 00:46 88 02/05/19 00:45 87 114/78 02/05/19 00:41 88 02/05/19 00:40 92 H 111/71 02/05/19 00:35 87 110/67 02/05/19 00:31 78 02/05/19 00:30 90 102/79 02/05/19 00:25 92 H 97/70 L 87 L 02/05/19 00:20 88 98/63 L 89 L 02/05/19 00:19 88 90/60 L 89 L 02/05/19 00:16 88 88 L 02/05/19 00:15 88 85/64 L 88 L 02/05/19 00:10 88 76/52 L 79 L 02/05/19 00:08 88 82/49 L 81 L 02/05/19 00:06 97 H 71/50 L 80 L 02/05/19 00:05 103 H 66/44 L 76 L 02/05/19 00:01 96 H 76 L 02/05/19 00:00 96 H 68/43 L 75 L 02/04/19 23:59 97 H 76/47 L 82 L 02/04/19 23:55 92 H 70/49 L 79 L 02/04/19 23:50 98 H 73/47 L 72 L 02/04/19 23:48 98 H 71/45 L 70 L 02/04/19 23:46 103 H 71 L 02/04/19 23:45 95 H 70/53 L 69 L 02/04/19 23:40 107 H 70/49 L 70 L 02/04/19 23:38 99 H 71/49 L 68 L 02/04/19 23:35 98 H 66/48 L 65 L 02/04/19 23:30 103 H 98/56 L 65 L 02/04/19 23:25 96 H 76/50 L 71 L 02/04/19 23:20 103 H 81/57 L 74 L 02/04/19 23:16 97 H 75 L 02/04/19 23:15 99 H 84/56 L 75 L 02/04/19 23:10 100 H 93/63 L 81 L 02/04/19 23:05 99 H 96/53 L 78 L 02/04/19 23:01 99 H 79 L 02/04/19 23:00 99 H 96/70 L 80 L 02/04/19 22:55 96 H 121/62 80 L 02/04/19 22:50 118 H 134/66 78 L 02/04/19 22:46 115 H 80 L 02/04/19 22:45 113 H 127/73 02/04/19 22:40 110 H 128/73 02/04/19 22:35 109 H 118/76 02/04/19 22:31 92 H 02/04/19 22:30 99 H 107/62 26 L 02/04/19 22:25 102 H 107/69 42 L 02/04/19 22:20 101 H 100/66 58 L 02/04/19 22:16 99 H 02/04/19 22:15 98 H 106/70 02/04/19 22:10 106 H 108/69 02/04/19 22:05 85 97/72 L 02/04/19 22:01 90 02/04/19 22:00 86 102/64
[2019-02-05] MEDS ORDERED: PIPERACILLIN/TAZOBACTAM 4.5 GM in DEXTROSE 5% 100 ML IV SCH (10:00)
--- NOTE | 2019-02-05 10:37 | Billing Data ---
Coding Level of Care Code Critical Care price addt'l 30 min
== END 2019-02-05 10:40 | disposition short-term general hospital (02) | DRG 871 ==
LOC: 2E 13:56 → 1E 17:02